=== PATIENT | male | born 1970 ===

== ENCOUNTER 2020-08-30 08:58 | Outpatient (REF) | payer OTHER, SELFPAY | END 2020-08-30 08:59 | disposition home or self-care (01) | LOC: HO.LAB 08:58 | PROVIDERS: Visit Provider Internal Medicine | DX: Z20.828 Contact with and (suspected) exposure to other viral communicable diseases (principal) | CPT/HCPCS: C9803; U0003 ==

== ENCOUNTER 2021-04-07 08:15 | Outpatient (REF) | payer OTHER, SELFPAY ==
--- NOTE | ~2021-04-07 | XR_ITS ---
EXAMINATION: XR CHEST CLINICAL INFORMATION: Persistent asthma. COMPARISON: Most recent chest radiograph dated 12/07/2015. TECHNIQUE: 2 views of the chest were obtained. FINDINGS: The lungs are clear. The cardiomediastinal silhouette is normal in size. There is no pleural effusion or pneumothorax. No acute osseous abnormality. XR/XR chest 2V IMPRESSION: No acute cardiopulmonary findings.
== END 2021-04-07 08:16 | disposition home or self-care (01) ==
LOC: HO.XRAY 08:15
PROVIDERS: PCP Internal Medicine; Visit Provider Internal Medicine
DX: J45.51 Severe persistent asthma with (acute) exacerbation (principal)
CPT/HCPCS: 71046

== ENCOUNTER → 2021-06-10 10:11 | Outpatient (BNVA) | payer OTHER, SELFPAY | PROVIDERS: PCP Internal Medicine; Visit Provider Surgery | DX: S22.49XA Multiple fractures of ribs, unspecified side, initial encounter for closed fracture (principal); J45.909 Unspecified asthma, uncomplicated; E03.9 Hypothyroidism, unspecified; G47.33 Obstructive sleep apnea (adult) (pediatric); Z79.899 Other long term (current) drug therapy | CPT/HCPCS: 99212 ==

== ENCOUNTER → 2021-06-24 08:36 | Outpatient (BNVA) | payer OTHER, SELFPAY | PROVIDERS: PCP Internal Medicine; Visit Provider Surgery | DX: S22.42XA Multiple fractures of ribs, left side, initial encounter for closed fracture (principal); M79.2 Neuralgia and neuritis, unspecified; Z79.899 Other long term (current) drug therapy; Z79.891 Long term (current) use of opiate analgesic | CPT/HCPCS: 99212 ==

== ENCOUNTER → 2021-06-27 08:59 | Outpatient (BNVA) | payer OTHER, SELFPAY | PROVIDERS: PCP Internal Medicine; Visit Provider Anesthesiology ==

== ENCOUNTER 2021-06-27 10:11 | Outpatient (REF) | payer OTHER, SELFPAY ==
[2021-06-27 10:15] LABS: MANUAL DIFF FLAG NO
[2021-06-27 10:20] LABS: Basophils Absolute Auto 0.1 X10*3/uL (0.0-0.2); Basophils Percent Auto 0.8 % (0-2); Eosinophils Absolute Auto 0.4 X10*3/uL (0.0-0.4); Eosinophils Percent Auto 4.6 % (0-4); Hematocrit 43.2 % (42-52); Hemoglobin 14.6 g/dl (14.0-18.0); Imm Gran Abs Auto 0.04 X10*3/uL (0.00-0.03); Imm Gran Pct Auto 0.4 % (0.0-0.4); Lymphocytes Absolute Auto 1.5 X10*3/uL (1.2-4.9); Lymphocytes Percent Auto 16.3 % (20-40); Mean Corpuscular HGB Conc 33.8 g/dl (31.0-36.0); Mean Corpuscular Hemoglobin 30.9 pg (27.0-33.0); Mean Corpuscular Volume 91.5 fL (80-98); Mean Platelet Volume 10.5 fL (9.4-12.4); Monocytes Absolute Auto 0.7 X10*3/uL (0.1-1.2); Monocytes Percent Auto 8.2 % (2-11); Neutrophils Absolute Auto 6.2 X10*3/uL (2.0-8.3); Neutrophils Percent Auto 69.7 % (45-73); Platelet Count 316 X10*3/uL (160-400); Red Blood Count 4.72 X10*6/uL (4.60-5.80); Red Cell Distribution Width 12.9 % (11.0-16.0); White Blood Count 8.9 X10*3/uL (4.8-10.8)
[2021-06-27 10:31] LABS: Alanine Aminotransferase 35 U/L (0-40); Albumin Level 4.6 g/dL (3.5-5.0); Alkaline Phosphatase 62 U/L (39-117); Anion Gap 13 (12-20); Aspartate Amino Transferase 20 U/L (5-37); Bilirubin Total 0.8 mg/dL (0.0-1.0); Blood Urea Nitrogen 17 mg/dL (9-16); Calcium 9.7 mg/dL (8.4-10.2); Carbon Dioxide 29 mmol/L (22-29); Chloride 104 mmol/L (96-108); Cholesterol 200 mg/dL; Estimated Glomerular Filt Rate > 60; Glucose Fasting 102 mg/dL (60-99); HDL Cholesterol 38 mg/dL; LDL Cholesterol Calculated 145 mg/dl; Potassium 4.3 mmol/L (3.3-5.1); Sodium 142 mmol/L (135-145); Total Protein 7.2 g/dL (6.5-8.0); Triglycerides 88 mg/dL
[2021-06-27 10:42] LABS: Appearance Urine CLOUDY; Color Urine YELLOW; Glucose Urine UA NEG (NEG); Leukocyte Esterase Urine NEG (NEG); Nitrite Urine NEG (NEG); PH 7.5 (5.0-8.0); Urine Blood NEG (NEG); Urine Ketones NEG (NEG); Urine Protein NEG (NEG-TRACE)
[2021-06-27 10:51] LABS: PSA,Total (Free>4and<10) 0.96 ng/mL (0.00-4.00); TSH reflex Free T4 1.89 uIU/mL (0.32-4.0)
[2021-06-27 11:03] LABS: Creatinine Urine 138.77 mg/dL; Microalbum/Creatinine Ratio Ur 25.2 ug/mg cr
[2021-06-27 11:12] LABS: Estimated Average Glucose 103 mg/dL; Hemoglobin A1c % 5.2 %
== END 2021-06-27 10:12 | disposition home or self-care (01) ==
LOC: HO.LNP 10:11
PROVIDERS: Visit Provider Internal Medicine
DX: Z00.00 Encounter for general adult medical examination without abnormal findings (principal); S22.49XD Multiple fractures of ribs, unspecified side, subsequent encounter for fracture with routine healing; I10 Essential (primary) hypertension; E03.9 Hypothyroidism, unspecified; R73.09 Other abnormal glucose; E78.00 Pure hypercholesterolemia, unspecified; M79.2 Neuralgia and neuritis, unspecified
CPT/HCPCS: 80053; 80061; 81003; 82043; 83036; 84153; 84443; 85025

== ENCOUNTER 2022-07-31 10:53 | Outpatient (REF) | payer OTHER, SELFPAY ==
[2022-07-31 10:55] LABS: MANUAL DIFF FLAG NO
[2022-07-31 11:06] LABS: Basophils Absolute Auto 0.1 X10*3/uL (0.0-0.2); Basophils Percent Auto 1.1 % (0-2); Eosinophils Absolute Auto 0.2 X10*3/uL (0.0-0.4); Eosinophils Percent Auto 2.9 % (0-4); Hematocrit 46.6 % (42.0-52.0); Hemoglobin 15.3 g/dl (14.0-18.0); Imm Gran Abs Auto 0.04 X10*3/uL (0.00-0.03); Imm Gran Pct Auto 0.6 % (0.0-0.4); Lymphocytes Absolute Auto 1.4 X10*3/uL (1.2-4.9); Lymphocytes Percent Auto 22.2 % (20-40); Mean Corpuscular HGB Conc 32.8 g/dl (31.0-36.0); Mean Corpuscular Hemoglobin 30.4 pg (27.0-33.0); Mean Corpuscular Volume 92.5 fL (80.0-98.0); Mean Platelet Volume 10.7 fL (9.4-12.4); Monocytes Absolute Auto 0.6 X10*3/uL (0.1-1.2); Monocytes Percent Auto 9.9 % (2-11); Neutrophils Absolute Auto 4.1 x10*3/uL (2.0-8.3); Neutrophils Percent Auto 63.3 % (45-73); Platelet Count 245 X10*3/uL (160-400); Red Blood Count 5.04 X10*6/uL (4.60-5.80); Red Cell Distribution Width 13.8 % (11.0-16.0); White Blood Count 6.5 X10*3/uL (4.8-10.8)
[2022-07-31 11:16] LABS: Appearance Urine Clear; Color Urine Yellow; Glucose Urine UA Negative (Negative); Leukocyte Esterase Urine Negative (Negative); Nitrite Urine Negative (Negative); Urine Blood Negative (Negative); Urine Ketones Negative (Negative); Urine Protein Negative (Neg-Trace)
[2022-07-31 11:18] LABS: Estimated Average Glucose 103 mg/dL; Hemoglobin A1c % 5.2 %
[2022-07-31 11:20] LABS: Alanine Aminotransferase 24 U/L (0-40); Albumin Level 4.6 g/dL (3.5-5.0); Alkaline Phosphatase 63 U/L (39-117); Anion Gap 19 (12-20); Aspartate Amino Transferase 18 U/L (5-37); Bilirubin Total 0.9 mg/dL (0.0-1.0); Blood Urea Nitrogen 17 mg/dL (9-16); Calcium 9.9 mg/dL (8.4-10.2); Carbon Dioxide 27 mmol/L (22-29); Chloride 100 mmol/L (96-108); Cholesterol 220 mg/dL; Estimated Glomerular Filt Rate > 60; Glucose Fasting 115 mg/dL (60-99); HDL Cholesterol 65 mg/dL; LDL Cholesterol Calculated 145 mg/dl; Sodium 142 mmol/L (135-145); Total Protein 7.4 g/dL (6.5-8.0); Triglycerides 51 mg/dL
[2022-07-31 11:21] LABS: Bacteria Urine None Seen (None Seen); Hyaline Casts Urine 0-2 /LPF (0-2); RBC Urine 0-2 /HPF (0-2); Squamous Epithelial Cell Urine 0-2 /HPF (0-2); WBC Urine 0-5 /HPF (0-5)
[2022-07-31 11:40] LABS: PSA,Total (Free>4and<10) 0.99 ng/mL (0.00-4.00); TSH reflex Free T4 1.25 uIU/mL (0.32-4.0)
[2022-07-31 12:01] LABS: Creatinine Urine 25.83 mg/dL; Microalbum/Creatinine Ratio Ur 61.9 ug/mg cr
== END 2022-07-31 10:54 | disposition home or self-care (01) ==
LOC: HO.LNP 10:53
PROVIDERS: Visit Provider Internal Medicine
DX: Z00.00 Encounter for general adult medical examination without abnormal findings (principal); I10 Essential (primary) hypertension; E03.9 Hypothyroidism, unspecified; R73.09 Other abnormal glucose; E78.00 Pure hypercholesterolemia, unspecified; Z12.5 Encounter for screening for malignant neoplasm of prostate
CPT/HCPCS: 80053; 80061; 81001; 82043; 83036; 84153; 84443; 85025

== ENCOUNTER 2023-04-24 10:45 | Outpatient (REF) | payer OTHER, SELFPAY ==
--- NOTE | ~2023-04-24 | XR_ITS ---
EXAMINATION: XR RIBS, LEFT CLINICAL INFORMATION: Pain following fracture of ribs in the left side of the chest COMPARISON: 04/07/2021 TECHNIQUE: 3 views of the left ribs were obtained. FINDINGS: There are postsurgical changes on the lateral aspect of ribs 6 and 7 on the left with compression plates and screws in place. No new fractures identified. XR/XR ribs LT min 3V w CXR1V IMPRESSION: No acute abnormalities in the left rib cage healed fracture is only 6 and 7 ribs with
== END 2023-04-24 10:46 | disposition home or self-care (01) ==
LOC: HO.XRAY 10:45
PROVIDERS: PCP Internal Medicine; Visit Provider Internal Medicine
DX: S22.42XG Multiple fractures of ribs, left side, subsequent encounter for fracture with delayed healing (principal)
CPT/HCPCS: 71101

== ENCOUNTER → 2023-06-05 14:35 | Outpatient (BNVA) | payer OTHER, SELFPAY | PROVIDERS: PCP Internal Medicine; Visit Provider Physician Assistant ==

== ENCOUNTER 2023-06-07 09:25 | Outpatient (AMB) | payer OTHER, SELFPAY ==
--- NOTE | 2023-06-07 11:23 | A.OFFVIS_ITS ---
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 Allergies fexofenadine [From [facility]] Allergy (Unknown, Verified 06/07/23 11:23) RASH penicillin V Allergy (Unknown, Verified 06/07/23 11:23) rash Penicillins [PENICILLINS] Allergy (Unknown, Verified 06/07/23 11:23) RASH,THROAT CLOSING [facility] Allergy (Unknown, Uncoded 06/07/23 11:23) rash Medication List - Last Reconciled 06/07/23 by Ruddy May MD albuterol sulfate 90 mcg/actuation (ProAir HFA) 2 puffs inhalation Q6H PRN amlodipine 10 mg PO DAILY 30 days fluticasone furoate-vilanterol 200-25 mcg/dose (Breo Ellipta) 1 inh inhalation DAILY hydrochlorothiazide 25 mg PO DAILY 30 days irbesartan 150 mg PO DAILY 30 days levothyroxine (Synthroid) 150 mcg PO DAILY 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 HPI Details Start time: 11.10am, End time: 12.02pm ?I spent 47 minutes speaking with the patient on the phone plus an additional 5 minutes reviewing and updating records for a total of 52 minutes HPI Comments History of Present Illness Details Previous weight loss efforts: WMP MWL program, exercise Wakes up: 5am, Sleeps: 9pm Breakfast: skips Lunch: 11am-1pm (burger with fries or sandwich) Dinner: 5pm (beef, chicken with potatoes and carrots) Snacks: peanut butter at 3-4pm, occasional brownies after dinner Exercise: none, Fluids: 16oz coffee/d (sugar and cream), tea: none, soda: none, juice: none, ETOH: 2-3 glasses daily or beer PFSH Medical History (Updated 06/07/23 @ 11:28 by Ruddy May MD) COPD (chronic obstructive pulmonary disease) Sleep apnea treated with continuous positive airway pressure (CPAP) Morbid obesity Asthma Obstructive sleep apnea syndrome Obesity Hypothyroidism Hypertension Surgical History History of umbilical hernia repair (~2016) History of colonoscopy (~2015) Assessment & Plan Assessment & Plan (1) Morbid obesity: Code(s): E66.01 - Morbid (severe) obesity due to excess calories Plan: 1.? Plan for lap sleeve gastrectomy. If diaphragmatic or ventral hernias a re present at time of surgery, these will be repaired laparoscopically as well. Risks and complications were discussed in detail including possible conversion to an open procedure, anastomotic leak, bleeding requiring transfusion, small bowel obstruction, , DVT and pulmonary embolism, cardiac, or pulmonary complications, as long lines operator complications such as anastomotic ulcer, insufficient weight loss and vitamin deficiencies. I emphasized the importance of close follow-up, adherence to instructions and good communication. 2. Nutritional counseling. Start with 2 Celebrate REBUILD protein (buy at [employer], or online) shakes (ONE scoop EACH in 8oz low fat unsweetened almond milk each) at 6am-8am and 9am-11am, 2 Celebrate protein bars (buy at [employer], or online) at 12pm-2pm and 3pm-5pm, dinner at 6pm (10 forks of protein and 10 forks of salad/vegetables). If hungry after dinner you may have one more Celebrate protein bar between 7pm-9pm. Meal to include lean meat (beef, fish, pork, turkey, chicken), or cameroonian yogurt, or egg whites, or beans with a salad with olive oil and fruits (berries, pears, apples, kiwi). Avoid salt, breads, potatoes, rice, pasta, desserts. 3. Each shake would be drunk slowly, like coffee in a period of 2 hours. 4. Cut each bar in 4 pieces and eat each piece in 30min ?to make each bar last 2 hours. 5. I emphasized the importance of measuring accurately the food portion and measure it when serving the food in plate 6. The meal portions include 10 full-size forks of meat and 10 full-size forks of salad. You always eat the meat portion but you can replace up to 5 forks for salad/vegetables with rice, potatoes or pasta, or a fruit ?if you like. The less you do it the better weight loss will be. 7. One full-size fork is what it can be scooped on the fork without falling aside and not what can be bit with the fork. Use regular forks like those you find in a typical restaurant. 8.? Please send me weight measurements as soon as possible and then once a week. Always include your diet and exercise plan. 9. Please purchase a stationary bike, elliptical or treadmill at home that can track calories. Let me know if you do so I can give you an exercise plan. 10. Goal is to lose at least 1.5-2lbs per week 11. Goal to lose 10% of your weight before surgery, which is about 25lbs. Ultimate weight goal: 228lbs before surgery 12. Please follow the diet plan exactly without any change. If you don't like something about the plan or you feel hungry you need to communicate with me so I can help you revise the plan. You should not change the plan yourself. (2) Hypertension: Code(s): I10 - Essential (primary) hypertension (3) Hypothyroidism: Code(s): E03.9 - Hypothyroidism, unspecified (4) Sleep apnea treated with continuous positive airway pressure (CPAP): Code(s): G47.30 - Sleep apnea, unspecified (5) Asthma: Code(s): J45.909 - Unspecified asthma, uncomplicated (6) COPD (chronic obstructive pulmonary disease): Code(s): J44.9 - Chronic obstructive pulmonary disease, unspecified (7) Prediabetes: Code(s): R73.03 - Prediabetes Orders: Orders Lipid Panel Today E66.01 - Morbid (severe) obesity due to excess calories, G47.30 - Sleep apnea, unspecified, J44.9 - Chronic obstructive pulmonary disease, unspecified, J45.909 - Unspecified asthma, uncomplicated, R73.03 - Prediabetes Complete Blood Count Auto Diff Today E66.01 - Morbid (severe) obesity due to excess calories, G47.30 - Sleep apnea, unspecified, J44.9 - Chronic obstructive pulmonary disease, unspecified, J45.909 - Unspecified asthma, uncomplicated, R73.03 - Prediabetes Vitamin B12 and Folate Today E66.01 - Morbid (severe) obesity due to excess calories, G47.30 - Sleep apnea, unspecified, J44.9 - Chronic obstructive pulmonary disease, unspecified, J45.909 - Unspecified asthma, uncomplicated, R73.03 - Prediabetes Zinc Today E66.01 - Morbid (severe) obesity due to excess calories, G47.30 - Sleep apnea, unspecified, J44.9 - Chronic obstructive pulmonary disease, unspecified, J45.909 - Unspecified asthma, uncomplicated, R73.03 - Prediabetes Comprehensive Met. Panel Today E66.01 - Morbid (severe) obesity due to excess calories, G47.30 - Sleep apnea, unspecified, J44.9 - Chronic obstructive pulmonary disease, unspecified, J45.909 - Unspecified asthma, uncomplicated, R73.03 - Prediabetes Vitamin A Today E66.01 - Morbid (severe) obesity due to excess calories, G47.30 - Sleep apnea, unspecified, J44.9 - Chronic obstructive pulmonary disease, unspecified, J45.909 - Unspecified asthma, uncomplicated, R73.03 - Prediabetes C Reactive Protein Today E66.01 - Morbid (severe) obesity due to excess calories, G47.30 - Sleep apnea, unspecified, J44.9 - Chronic obstructive pulmonary disease, unspecified, J45.909 - Unspecified asthma, uncomplicated, R73.03 - Prediabetes Ferritin Today E66.01 - Morbid (severe) obesity due to excess calories, G47.30 - Sleep apnea, unspecified, J44.9 - Chronic obstructive pulmonary disease, unspecified, J45.909 - Unspecified asthma, uncomplicated, R73.03 - Prediabetes Hemoglobin A1c Today E66.01 - Morbid (severe) obesity due to excess calories, G47.30 - Sleep apnea, unspecified, J44.9 - Chronic obstructive pulmonary disease, unspecified, J45.909 - Unspecified asthma, uncomplicated, R73.03 - Prediabetes US abdomen comp w elastography Today E66.01 - Morbid (severe) obesity due to excess calories, G47.30 - Sleep apnea, unspecified, J44.9 - Chronic obstructive pulmonary disease, unspecified, J45.909 - Unspecified asthma, uncomplicated, R73.03 - Prediabetes ECG 12 lead EKG Today E66.01 - Morbid (severe) obesity due to excess calories, G47.30 - Sleep apnea, unspecified, J44.9 - Chronic obstructive pulmonary disease, unspecified, J45.909 - Unspecified asthma, uncomplicated, R73.03 - Prediabetes FL upper GI w air Today E66.01 - Morbid (severe) obesity due to excess calories, G47.30 - Sleep apnea, unspecified, J44.9 - Chronic obstructive pulmonary disease, unspecified, J45.909 - Unspecified asthma, uncomplicated, R73.03 - Prediabetes Insulin Today E66.01 - Morbid (severe) obesity due to excess calories, G47.30 - Sleep apnea, unspecified, J44.9 - Chronic obstructive pulmonary disease, unspecified, J45.909 - Unspecified asthma, uncomplicated, R73.03 - Prediabetes IRON PROFILE Today E66.01 - Morbid (severe) obesity due to excess calories, G47.30 - Sleep apnea, unspecified, J44.9 - Chronic obstructive pulmonary disease, unspecified, J45.909 - Unspecified asthma, uncomplicated, R73.03 - Prediabetes Vitamin B1 Today E66.01 - Morbid (severe) obesity due to excess calories, G47.30 - Sleep apnea, unspecified, J44.9 - Chronic obstructive pulmonary disease, unspecified, J45.909 - Unspecified asthma, uncomplicated, R73.03 - Prediabetes PTHI Today E66.01 - Morbid (severe) obesity due to excess calories, G47.30 - Sleep apnea, unspecified, J44.9 - Chronic obstructive pulmonary disease, unspecified, J45.909 - Unspecified asthma, uncomplicated, R73.03 - Prediabetes TSH reflex Free T4 Today E66.01 - Morbid (severe) obesity due to excess calories, G47.30 - Sleep apnea, unspecified, J44.9 - Chronic obstructive pulmonary disease, unspecified, J45.909 - Unspecified asthma, uncomplicated, R73.03 - Prediabetes H Pylori Breath Test Today E66.01 - Morbid (severe) obesity due to excess calories, G47.30 - Sleep apnea, unspecified, J44.9 - Chronic obstructive pulmonary disease, unspecified, J45.909 - Unspecified asthma, uncomplicated, R73.03 - Prediabetes Vitamin D 25-OH Total Today E66.01 - Morbid (severe) obesity due to excess calories, G47.30 - Sleep apnea, unspecified, J44.9 - Chronic obstructive pulmonary disease, unspecified, J45.909 - Unspecified asthma, uncomplicated, R73.03 - Prediabetes XR chest 2V Today E66.01 - Morbid (severe) obesity due to excess calories, G47.30 - Sleep apnea, unspecified, J44.9 - Chronic obstructive pulmonary disease, unspecified, J45.909 - Unspecified asthma, uncomplicated, R73.03 - Prediabetes Referrals Behavioral Health Referral E66.01 - Morbid (severe) obesity due to excess calories, G47.30 - Sleep apnea, unspecified, J44.9 - Chronic obstructive pulmonary disease, unspecified, J45.909 - Unspecified asthma, uncomplicated, R73.03 - Prediabetes Nutrition/Dietitian Referral E66.01 - Morbid (severe) obesity due to excess calories, G47.30 - Sleep apnea, unspecified, J44.9 - Chronic obstructive pulmonary disease, unspecified, J45.909 - Unspecified asthma, uncomplicated, R73.03 - Prediabetes Telehealth Telehealth Location of provider rendering services: practice address Location of patient: address on file Patient Identification confirmed using: Name, : Yes Telehealth method: voice only Patient verbally consented to treatment: Yes Patient verbally consented to billing insurance company: Yes Patient informed of any privacy concerns related to visit: Yes Minutes spent on Phone/Video with Pt.: 52 Coding Level of Care Code Tele New Pt Level 4 (63929) Diagnoses Morbid obesity E66.01 Hypertension I10 Hypothyroidism E03.9 Sleep apnea treated with continuous positive airway pressure (CPAP) G47.30 Asthma J45.909 COPD (chronic obstructive pulmonary disease) J44.9 Prediabetes R73.03 Time Spent (min) 52
[2023-06-07 11:32] VITALS: BMI 42.1
[2023-06-17 13:42] LABS: H Pylori Breath Test Negative (Negative)
== END 2023-06-07 12:03 | disposition home or self-care (01) ==
LOC: HO.HBS 09:25
PROVIDERS: PCP Internal Medicine; Visit Provider Surgery
DX: E66.01 Morbid (severe) obesity due to excess calories (principal); Z68.41 Body mass index [BMI] 40.0-44.9, adult; E03.9 Hypothyroidism, unspecified; G47.30 Sleep apnea, unspecified; J44.9 Chronic obstructive pulmonary disease, unspecified; R73.03 Prediabetes
CPT/HCPCS: 99443

== ENCOUNTER → 2023-06-07 09:25 | Outpatient (BNVA) | payer OTHER, SELFPAY | PROVIDERS: PCP Internal Medicine; Visit Provider Surgery | DX: E66.01 Morbid (severe) obesity due to excess calories (principal); Z68.41 Body mass index [BMI] 40.0-44.9, adult; I10 Essential (primary) hypertension; E03.9 Hypothyroidism, unspecified; G47.30 Sleep apnea, unspecified; J44.9 Chronic obstructive pulmonary disease, unspecified; J45.909 Unspecified asthma, uncomplicated; R73.03 Prediabetes; Z11.0 Encounter for screening for intestinal infectious diseases | CPT/HCPCS: 83013 ==

== ENCOUNTER 2023-06-11 07:13 | Outpatient (REF) | payer OTHER, SELFPAY ==
--- NOTE | ~2023-06-11 | XR_ITS ---
EXAMINATION: XR CHEST CLINICAL INFORMATION: Asthma, uncomplicated COMPARISON: 04/24/2023, 04/07/2021 TECHNIQUE: 2 views of the chest. FINDINGS: Redemonstration of postsurgical changes along the lateral aspects of ribs 6 and 7 with compression plates and screws. There is no gross pneumothorax. Heart size is normal. No pleural effusion. No new focal consolidation to suggest pneumonia. Mild degenerative changes in the thoracic spine. XR/XR chest 2V IMPRESSION: No evidence of pneumonia.
--- NOTE | 2023-06-11 07:23 | ECG_ITS ---
Test Reason : pre op Blood Pressure : / mmHG Vent. Rate : 065 BPM Atrial Rate : 065 BPM P-R Int : 162 ms QRS Dur : 090 ms QT Int : 400 ms P-R-T Axes : 048 063 055 degrees QTc Int : 416 ms Normal sinus rhythm with sinus arrhythmia Septal infarct , age undetermined Abnormal ECG No previous ECGs available Referred By: Ruddy May Electronically Signed By:RAMÓN MUNSON
[2023-06-11 07:30] LABS: MANUAL DIFF FLAG NO
[2023-06-11 08:10] LABS: Basophils Absolute Auto 0.1 X10*3/uL (0.0-0.2); Basophils Percent Auto 1.1 % (0-2); Eosinophils Absolute Auto 0.4 X10*3/uL (0.0-0.4); Eosinophils Percent Auto 5.5 % (0-4); Hematocrit 46.6 % (42.0-52.0); Hemoglobin 15.9 g/dl (14.0-18.0); Imm Gran Abs Auto 0.05 X10*3/uL (0.00-0.03); Imm Gran Pct Auto 0.7 % (0.0-0.4); Lymphocytes Absolute Auto 1.6 X10*3/uL (1.2-4.9); Lymphocytes Percent Auto 21.7 % (20-40); Mean Corpuscular HGB Conc 34.1 g/dl (31.0-36.0); Mean Corpuscular Hemoglobin 31.1 pg (27.0-33.0); Mean Corpuscular Volume 91.2 fL (80.0-98.0); Mean Platelet Volume 10.8 fL (9.4-12.4); Monocytes Absolute Auto 0.7 X10*3/uL (0.1-1.2); Monocytes Percent Auto 9.7 % (2-11); Neutrophils Absolute Auto 4.6 x10*3/uL (2.0-8.3); Neutrophils Percent Auto 61.3 % (45-73); Platelet Count 262 X10*3/uL (160-400); Red Blood Count 5.11 X10*6/uL (4.60-5.80); White Blood Count 7.5 X10*3/uL (4.8-10.8)
[2023-06-11 08:33] LABS: Estimated Average Glucose 100 mg/dL; Hemoglobin A1c % 5.1 % (<6.0)
[2023-06-11 08:52] LABS: Alanine Aminotransferase 33 U/L (0-40); Albumin Level 4.5 g/dL (3.5-5.0); Alkaline Phosphatase 66 U/L (39-117); Anion Gap 13 (12-20); Aspartate Amino Transferase 21 U/L (5-37); Bilirubin Total 1.2 mg/dL (0.0-1.0); Blood Urea Nitrogen 17 mg/dL (9-16); C Reactive Protein 0.45 mg/dL (< or = 0.50); Carbon Dioxide 27 mmol/L (22-29); Chloride 102 mmol/L (96-108); Cholesterol 224 mg/dL (<200); Estimated Glomerular Filt Rate > 60; Glucose Random 112 mg/dL (60-115); HDL Cholesterol 50 mg/dL (>40); Iron 147 mcg/dL (45-160); LDL Cholesterol Calculated 154 mg/dL (<100); Percent Iron Saturation 45 % (15-50); Potassium 3.5 mmol/L (3.3-5.1); Sodium 138 mmol/L (135-145); Total Iron Binding Capacity 325 mcg/dL (228-428); Total Protein 7.4 g/dL (6.5-8.0); Triglycerides 102 mg/dL (<150); Unsaturated Iron Binding 178 ug/dL
[2023-06-11 09:15] LABS: Vitamin B12 476 pg/mL (200-900)
[2023-06-11 09:18] LABS: Ferritin 258 ng/mL (20-250); Insulin 11 uU/mL (2-29); TSH reflex Free T4 1.83 uIU/mL (0.32-4.0); Vitamin D 25-OH Total 42.2 ng/mL (>30)
[2023-06-12 16:14] LABS: Calcium (PTHI) 9.8 mg/dL (8.6-10.3); PTHI 29 pg/mL (16-77)
[2023-06-15 01:29] LABS: Zinc 76 mcg/dL (60-130)
[2023-06-15 18:18] LABS: Vitamin A 62 mcg/dL (38-98)
[2023-06-17 11:54] LABS: Vitamin B1 7 nmol/L (8-30)
== END 2023-06-11 07:14 | disposition home or self-care (01) ==
LOC: HO.LAB 07:13
PROVIDERS: PCP Internal Medicine; Visit Provider Surgery
DX: J45.909 Unspecified asthma, uncomplicated (principal); E66.01 Morbid (severe) obesity due to excess calories; G47.30 Sleep apnea, unspecified; J44.9 Chronic obstructive pulmonary disease, unspecified; R73.03 Prediabetes
CPT/HCPCS: 36415; 71046; 80053; 80061; 82306; 82607; 82728; 82746; 83036; 83525; 83540; 83970; 84425; 84443; 84590; 84630; 85025; 86140; 93005

== ENCOUNTER → 2023-06-15 07:42 | Outpatient (BNVA) | payer OTHER, SELFPAY | PROVIDERS: PCP Internal Medicine; Visit Provider Physician Assistant Surgical ==

== ENCOUNTER 2023-06-18 10:20 | Outpatient (AMB) | payer OTHER, SELFPAY ==
--- NOTE | 2023-06-18 10:20 | A.OFFWM_ITS ---
Intake Intake Visit Reasons: VIDEO BH Intake Allergies fexofenadine [From ENDY] Allergy (Unknown, Verified 06/07/23 11:23) RASH penicillin V Allergy (Unknown, Verified 06/07/23 11:23) rash Penicillins [PENICILLINS] Allergy (Unknown, Verified 06/07/23 11:23) RASH,THROAT CLOSING Endy Allergy (Unknown, Uncoded 06/07/23 11:23) rash [facility] Medical History (Updated 06/18/23 @ 10:51 by Pooja Patterson) COPD (chronic obstructive pulmonary disease) Sleep apnea treated with continuous positive airway pressure (CPAP) Morbid obesity Asthma Obstructive sleep apnea syndrome Obesity Hypothyroidism Hypertension Surgical History History of umbilical hernia repair (~2015) History of colonoscopy (~2014) Behavioral Health Assessment Weight Management Therapy Therapy Notes Details Patient is looking to have weight loss surgery to help improve his health and quality of life. He reported some history of depression. He was in therapy many years ago due to OCD and then his daughter was diagnosed with ADHD due to his anxiety per his report. He was on medication for two years while in therapy. No history of inpatient psychiatric admission, or problems with drugs or alcohol. He reported about 1-4 drinks per night almost everynight his last beer was 8 days ago. No history of self harming behaviors or suicide attempts. Presenting Concerns Referral Source provider Reason for referral weight loss surgery evaluation Precipitating Event obesity Living Situation Current Living Situation Own At risk of losing current housing? No Satisfied with current living situation? Yes Comments Pt lives with his , and their 14 year old daughter. They have 7 children combined. Food/Weight/Diet Expectations of change weight loss and maintenance History/Relationship with food He stated that portion sizes are one of his biggest problems and also eating carbs, beer, pizza, rice, potatoes. Also would drink coffee with cream and sugar and then could skip meals all day and then binge eat dinner. History/Relationship with weight Pt stated that he has been he has been overweight since about 14 years old. At age 19 he was 220lbs. History/Relationship with dieting WMP in 2019, at age 22 he went down to 165lbs from boxing and working out. Binge Eating Do you frequently eat large amounts of food in short periods of time, not feeling physically hungry? No Do you feel out of control when you eat a large amount of food in a short period of time? No Do you eat large amounts of food rapidly and typically alone? Yes Night Eating Do you wake up at least once during the night to eat? No If you wake up in the night, do you find that it is necessary to eat something in order to fall back asleep? No Do you have little or no appetite in the morning and feel very hungry in the evening, often overeating between dinner and when you go to bed? Yes Social History Family history and relationship at 19 and then at 20. 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 none reported Education Highest grade completed high school Preferred learning style Auditory, Verbal, Written, Learn by doing and Visual Currently enrolled in educational program? No Interested in further educational program? 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 No Financial Situation Describe current financial situation Comfortable Financial assistance? None Service Service? No Mental Health and Addiction Treatment Current/Past substance abuse? Yes Comments see above paragraph. Current/Past addictive behavior concerns? No Medical and Physical Health Summary Physical exam in the last year? No Pain Screening Current pain? No Pain in the last few months? No Medications Is the patient compliant with medications? Yes Does the patient have Francois Guardian in place? Not applicable Does the patient use complimentary health approaches? No Trauma/Abuse History History of trauma? No Questionnaires PHQ-9 Over the last 2 weeks, how often have you been bothered by any of the following problems? 1. Little interest or pleasure in doing things: not at all 2. Feeling down, depressed, or hopeless: several days 3. Trouble falling or staying asleep, or sleeping too much: not at all 4. Feeling tired or having little energy: several days 5. Poor appetite or overeating: several days 6. Feeling bad about yourself - or that you are a failure or have let yourself or your family down: more than half the days 7. Trouble concentrating on things, such as reading the newspaper or watching television: nearly every day 8. Moving or speaking so slowly that other people could have noticed. Or the opposite - being so fidgety or restless that you have been moving around a lot more than usual: not at all 9. Thoughts that you would be better off or of hurting yourself in some way: not at all Total score: 8 Source: Developed by Drs. Jean Pierre Meier, Ruth Velasquez, Titus Lino and colleagues, with an educational bella from [employer]. Binge Eating Scale Group 1 A. I don't feel self-conscious about my wt. or body size when I'm with others. B. I feel concerned about how I look to others, but it normally does not make me fell disappointed with myself C. I do get self-conscious about my appearance and wt. which makes me feel disappointed in myself. D. I feel very self-conscious about my wt. and frequently I feel intense shame and disgust for myself. I try to avoid social contacts because of my self- consciousness. Response Group 1: D Group 2 A. I don't have any difficulty eating slowly in the proper manner. B. Although I seem to gobble down foods, I don't end up feeling stuffed because of eating to much. C. At times, I tend to eat quickly and then, I feel uncomfortably full afterwards. D. I have the habit of bolting down my food, without really chewing it. When this happens I usually feel uncomfortably stuffed because I've eaten to much. Response Group 2: B Group 3 A. I feel capable to control my eating urges when I want to. B. I feel like I have failed to control my eating more than the average person. C. I feel utterly helpless when it comes to feeling in control of my eating urges. D. Because I feel so helpless about controlling my eating I have become very desperate about trying to get control. Response Group 3: B Group 4 A. I don't have the habit of eating when I'm bored. B. I sometimes eat when I'm bored, but often I'm able to get busy and get my min d off food. C. I have a regular habit of eating when I'm bored, but occasionally, I can use some other activity to get my mind off eating. D. I have a strong habit of eating when I'm bored. Nothing seems to help me breath the habit. Response Group 4: A Group 5 A. I'm usually physically hungry when I eat something. B. Occasionally, I eat something on impulse even though I really am not hungry. C. I have the regular habit of eating foods, that I might not really enjoy, to satisfy a hungry feeling even though physically, I don't need the food. D. Although I'm not physically hungry, I get a hungry feeling in my mouth that only seems to be satisfied when I eat a food, like sandwich, that fills my mouth. Sometimes, when I eat the food to satisfy my mouth hunger, I then spit the food out so I won't gain weight. Response Group 5: A Group 6 A. I don't feel any guilt or self-hate after I overeat. B. After I overeat, occasionally I feel guilt or self-hate. C. Almost all the time I experience strong guilt or self-hate after I overeat. Response Group 6: C Group 7 A. I don't lose total control of my eating when dieting even after periods when I overeat. B. Sometimes when I eat a forbidden food on a diet, I feel like I blew it and eat even more. C. Frequently, I have the habit of saying to myself, I've blown it now, why not go all the way, when I overeat on a diet. When that happens I eat more. D. I have a regular habit of starting a strict diets for myself but I break the diets by going on an eating binge. My life seems to be either a feast or famine. Response Group 7: A Group 8 A. I rarely eat so much food that I feel uncomfortably stuffed afterwards. B. Usually about once a month, I each such a quantity of food, I end up feeling very stuffed. C. I have regular periods during the month when I eat large amounts of food, either at mealtime or at snacks. D. I eat so much food that I regularly feel quite uncomfortable after eating and sometimes a bit nauseous. Response Group 8: B Group 9 A. My level of calorie intake does not go up very high or go down very low on a regular basis. B. Sometimes after I overeat, I will try to reduce my caloric intake to almost nothing to compensate for the excess calories I've eaten. C. I have a regular habit of overeating during the night. It seems that my routine is not to be hungry in the morning but overeat in the evening. D. In my adult years, I have had week-long periods where I practically starve myself. This follows periods when I overeat. It seems I live a life of either feast or famine. Response Group 9: A Group 10 A. I usually am able to stop eating when I want to. I know when enough is enough. B. Every so often, I experience a compulsion to eat which I can't seem to control. C. Frequently, I experience strong urges to eat which I seem unable to control, but at other times I can control my eating urges. D. I feel incapable of controlling urges to eat. I have a fear of not being able to stop eating voluntarily. Response Group 10: B Group 11 A. I don't have any problem stopping eating when I feel full. B. I usually can stop eating when I feel full but occasionally overeat leaving me feeling uncomfortably stuffed. C. I have a problem stopping eating once I start and usually I feel uncomfortably stuffed after I eat a meal. D. Because I have a problem not being able to stop eating when I want, I sometimes have to induce vomiting to relieve my stuffed feeling. Response Group 11: B Group 12 A. I seem to eat just as much when I'm with others, Family social gatherings as when I'm by myself. B. Sometimes, when I'm with other persons, I don't eat as much as I want to eat because I'm self-conscious about my eating. C. Frequently, I eat only a small amount of food when others are present, because I'm very embarrassed about my eating. D. I feel so ashamed about overeating that I pick times to overeat when I know no one will see me. I feel like a closet eater. Response Group 12: A Group 13 A. I eat three meals a day with only an occasional between meal snack. B. I eat 3 meals a day, but I also normally snack between meals. C. When I am snacking heavily, I get in the habit of skipping regular meals. D. There are regular periods when I seem to be continually eating, with no planned meals. Response Group 13: A Group 14 A. I don't think much about trying to control unwanted eating urges. B. At least some of the time, I feel my thoughts are pre-occupied with trying to control my eating urges. C. I feel that frequently I spend much time thinking about how much I ate or about trying not to eat anymore. D. It seems to me that most of my waking hours are pre-occupied by thoughts about eating or not eating. I feel like I'm constantly struggling not to eat. Response Group 14: A Group 15 A. I don't think about food a great deal. B. I have strong craving for food but they last only for brief periods of time. C. I have days when I can't seem to think about anything else but food. D. Most of my days seem to be pre-occupied with thoughts about food. I feel like I live to eat. Response Group 15: A Group 16 A. I usually know whether or not I'm physically hungry. I take the right portion of food to satisfy me. B. Occasionally, I feel uncertain about knowing whether or not I'm physically hungry. A these times it's hard to know how much food I should take to satisfy me. C. Even though I might know how many calories I should eat, I don't have any idea what is a normal amount of food for me. Response Group 16: C Binge Eating Score: 12 Score less than 17 Minimal Risk Score between 18-26 Moderate Risk Score between 27-46 High Risk Assessment & Plan Assessment & Plan (1) Adjustment disorder, unspecified: Code(s): F43.20 - Adjustment disorder, unspecified (2) Obesity: Comment: (morbid obesity) Code(s): E66.9 - Obesity, unspecified Plan Patient is doing well, he is cleared for surgery when ready. He was encouraged to follow up as needed. Telehealth Telehealth Location of provider rendering services: other Location of patient: other Patient Identification confirmed using: Name, : Yes Telehealth method: video Patient verbally consented to treatment: Yes Patient verbally consented to billing insurance company: Yes Patient informed of any privacy concerns related to visit: Yes Minutes spent on Phone/Video with Pt.: 45 Coding Level of Care Code Tele Psy Diag Eval (71527) Diagnoses Adjustment disorder, unspecified F43.20 Obesity E66.9 Time Spent (min) 45
== END 2023-06-18 10:54 | disposition home or self-care (01) ==
LOC: HO.HBST 10:20
PROVIDERS: PCP Internal Medicine; Visit Provider Counselor Mental Health
DX: F43.20 Adjustment disorder, unspecified (principal); E66.9 Obesity, unspecified
CPT/HCPCS: 90791

== ENCOUNTER → 2023-06-18 10:20 | Outpatient (BNVA) | payer OTHER, SELFPAY | PROVIDERS: PCP Internal Medicine; Visit Provider Counselor Mental Health ==

== ENCOUNTER 2023-06-28 09:50 | Outpatient (REF) | payer OTHER, SELFPAY | END 2023-06-28 09:51 | disposition home or self-care (01) | LOC: HO.US 09:50 | PROVIDERS: PCP Internal Medicine; Visit Provider Surgery | DX: J45.909 Unspecified asthma, uncomplicated (principal); E66.01 Morbid (severe) obesity due to excess calories; G47.30 Sleep apnea, unspecified; J44.9 Chronic obstructive pulmonary disease, unspecified; R73.03 Prediabetes | CPT/HCPCS: 76705; 76981 ==

== ENCOUNTER 2023-07-03 08:40 | Outpatient (REF) | payer OTHER, SELFPAY | END 2023-07-03 08:41 | disposition home or self-care (01) | LOC: HO.XRAY 08:40 | PROVIDERS: PCP Internal Medicine; Visit Provider Surgery | DX: E66.01 Morbid (severe) obesity due to excess calories (principal); R73.03 Prediabetes; J44.9 Chronic obstructive pulmonary disease, unspecified; G47.30 Sleep apnea, unspecified | CPT/HCPCS: 74246 ==

== ENCOUNTER → 2023-07-03 08:41 | Outpatient (BNV) | payer OTHER, SELFPAY | PROVIDERS: PCP Internal Medicine; Visit Provider Radiology Diagnostic Radiology | DX: Z01.818 Encounter for other preprocedural examination (principal); E66.01 Morbid (severe) obesity due to excess calories | CPT/HCPCS: 74246 ==

== ENCOUNTER 2023-07-04 07:39 | Outpatient (AMB) | payer OTHER, SELFPAY ==
--- NOTE | 2023-07-04 09:31 | MHC.OFFVISWM ---
Intake VS Expanded 07/04/23 09:35 Height 5 ft 5 in Weight 240 lb 8 oz BMI 40.0 Body Fat % 43.5 Body Fat Mass 104.7 Fat Free Mass 136 Visceral Fat Rating 22 Body Water % 40.8 Body Water Mass 98.2 Basal Metabolic Rate/Score 1,702 Intake Visit Reasons: TV Follow Up SWL - Allergies fexofenadine [From ENDY] Allergy (Unknown, Verified 06/07/23 11:23) RASH penicillin V Allergy (Unknown, Verified 06/07/23 11:23) rash Penicillins [PENICILLINS] Allergy (Unknown, Verified 06/07/23 11:23) RASH,THROAT CLOSING Endy Allergy (Unknown, Uncoded 06/07/23 11:23) rash HPI TV Follow Up SWL - HPI Details Start time: 9.25am, End time: 9.45am ?I spent 15 minutes speaking with the patient on the phone plus an additional 5 minutes reviewing and updating records for a total of 20 minutes HPI Comments History of Present Illness Details Overall weight loss: 12.6lbs or 4.97% TBWL Is doing 2 Celebrate Rebuild protein shakes (1 scoop in 8oz almond milk), 2 Zone Perfect protein bars and one meal (10 forks of protein and 10 forks of salad or vegetables) Exercise: is doing home treadmill for 300-350cal x 7days per week [facility] Medical History (Updated 06/18/23 @ 10:51 by Pooja Patterson) COPD (chronic obstructive pulmonary disease) Sleep apnea treated with continuous positive airway pressure (CPAP) Morbid obesity Asthma Obstructive sleep apnea syndrome Obesity Hypothyroidism Hypertension Surgical History History of umbilical hernia repair (~2015) History of colonoscopy (~2014) Assessment & Plan Assessment & Plan (1) Morbid obesity: Code(s): E66.01 - Morbid (severe) obesity due to excess calories Plan: 1. Continue present nutritional plan of 2 Celebrate Rebuild protein shakes (1 scoop in 8oz almond milk), 2 Zone Perfect protein bars and one meal (10 forks of protein and 10 forks of salad or vegetables) 2. Exercise: continue home treadmill for 300-350cal x 7days per week. Goal is 2000 calories burn on treadmill weekly 3. Continue to send weight measurements weekly on Sundays Telehealth Telehealth Location of provider rendering services: practice address Location of patient: address on file Patient Identification confirmed using: Name, : Yes Telehealth method: voice only Patient verbally consented to treatment: Yes Patient verbally consented to billing insurance company: Yes Patient informed of any privacy concerns related to visit: Yes Minutes spent on Phone/Video with Pt.: 20 Coding Level of Care Code Tele Est Pt Level 3 (33602) Diagnoses Morbid obesity E66.01
[2023-07-04 09:35] VITALS: BMI 40.0
== END 2023-07-04 09:48 | disposition home or self-care (01) ==
PROVIDERS: PCP Internal Medicine; Visit Provider Surgery
DX: E66.01 Morbid (severe) obesity due to excess calories (principal); Z68.41 Body mass index [BMI] 40.0-44.9, adult
CPT/HCPCS: 99213

== ENCOUNTER → 2023-07-04 07:39 | Outpatient (BNVA) | payer OTHER, SELFPAY | PROVIDERS: PCP Internal Medicine; Visit Provider Surgery ==

== ENCOUNTER 2023-07-10 09:43 | Outpatient (AMB) | payer OTHER, SELFPAY ==
--- NOTE | 2023-07-10 09:36 | MHC.AMNUTRGE ---
Intake Intake Visit Reasons: VIDEO Initial Nutrition SWL Allergies fexofenadine [From ENDY] Allergy (Unknown, Verified 06/07/23 11:23) RASH penicillin V Allergy (Unknown, Verified 06/07/23 11:23) rash Penicillins [PENICILLINS] Allergy (Unknown, Verified 06/07/23 11:23) RASH,THROAT CLOSING Endy Allergy (Unknown, Uncoded 06/07/23 11:23) rash HPI Nutrition Presentation Details [employer] weight 258# current weight 233# Reason for consult elevated BMI Diet Assmnt Details Celebrate mendoza thomaskes - 1 scoop 8oz almond milk x 2 = 20g protein Zone perfect bars x 2 dinner 10 bites of protein and veg Pt shares that he is worried about losing muscle mass on his current plan Goes to [place] for the whole month of August Online classes completed, scored well Dietary counseling reduction Meal frequency regular: lunch (large ), dinner (6pm large portions) and snacks (2 big spoons peanut butter mid afternoon; ) and never: breakfast (coffee) Lifestyle Eating out 4 or more times/week Food frequency Fruit: daily, Vegetables: several times weekly (but likes vegetables ), Meats/poultry/fish (protein): daily, Coffee: daily and Alcohol: daily Diagnosis Nutrition problem #1 overweight/obesity As related to (etiology) #1 excess energy intake and physical inactivity As evidenced by (sign/symptom) #1 high BMI Monitoring/Goals Nutrition problem monitoring total energy intake, level of knowledge/skill, total PRO intake, total CHO intake and weight Outcome progress progressing Learning/Education Readiness to learn excellent Stages of change action Educational materials provided Yes Most Recent Diabetes Results: Cholesterol 224 mg/dL (<200) H 06/11/23 HDL Cholesterol 50 mg/dL (>40) 06/11/23 Triglycerides 102 mg/dL (<150) 06/11/23 Creatinine 0.82 mg/dL (0.5-1.4) 06/11/23 Blood Urea Nitrogen 17 mg/dL (9-16) H 06/11/23 Sodium 138 mmol/L (135-145) 06/11/23 Potassium 3.5 mmol/L (3.3-5.1) 06/11/23 Chloride 102 mmol/L (96-108) 06/11/23 Carbon Dioxide 27 mmol/L (22-29) 06/11/23 Calcium 10.0 mg/dL (8.4-10.2) 06/11/23 AST 21 U/L (5-37) 06/11/23 ALT 33 U/L (0-40) 06/11/23 Total Protein 7.4 g/dL (6.5-8.0) 06/11/23 Albumin 4.5 g/dL (3.5-5.0) 06/11/23 [facility] Medical History (Updated 06/18/23 @ 10:51 by Pooja Patterson) COPD (chronic obstructive pulmonary disease) Sleep apnea treated with continuous positive airway pressure (CPAP) Morbid obesity Asthma Obstructive sleep apnea syndrome Obesity Hypothyroidism Hypertension Surgical History History of umbilical hernia repair (~2015) History of colonoscopy (~2014) Assessment & Plan Assessment & Plan (1) Obesity (BMI 30-39.9): Code(s): E66.9 - Obesity, unspecified Patient Instructions: Patient is cleared from a nutrition standpoint for bariatric surgery. Educational requirements have been completed. Reviewed vitamin supplementation and commitment to protein shake for several months post surgery. Encouraged communication with office as needed Telehealth Telehealth Location of provider rendering services: practice address Location of patient: address on file Patient Identification confirmed using: Name, : Yes Telehealth method: video Patient verbally consented to treatment: Yes Patient verbally consented to billing insurance company: Yes Patient informed of any privacy concerns related to visit: Yes Minutes spent on Phone/Video with Pt.: 30 Coding Level of Care Code Nutr Indiv Intake (55441) Diagnoses Obesity (BMI 30-39.9) E66.9 Time Spent (min) 30
--- OUTSIDE RECORDS SUMMARY | 2023-07-10 09:45 | XMS_ITS | Patient Health Record ---
Author Name Unknown Organization [facility] Address [address] [place] [address] Care Team Providers Care Messaging Architect Name Role Phone Ruddy VILLARREAL, Aston Primary Care Provider Alhaji Evangelista Jr Unavailable [phone] ALLERGIES Allergen (clinical drug ingredient) Drug/Non Drug Allergy documented on EMR Reaction Allergy Type Onset Date Status Penicillin Unknown Drug Allergy Active Joceline Unknown Drug Allergy Active REASON FOR REFERRAL No Information MEDICATIONS Medication SIG (Take, Route, Frequency, Duration) Notes Start Date End Date Status hydroCHLOROthiazide 25 MG 1 tablet Orally Once a day Active amLODIPine Besylate 10 MG 1 tablet Orally Once a day Active Flovent HFA Active Suprep Bowel Prep 1 as directed Orally 1 for 1 dose 10/28/2014 Active SOCIAL HISTORY Sex Assigned At : Social History Observation Description Sex Assigned At Unknown PROBLEMS Problem Type ICD Code Onset Dates Problem Status W/U Status Risk SNOMED Code Notes Problem Abnormal findings in stool (792.1) Active confirmed 737787075 Problem Rectal bleeding (569.3) Active confirmed [id number] PLAN OF TREATMENT Future Test Test Name Order Date COLONOSCOPY 10/28/2014 Insurance Providers Payer Name Payer Address Payer Phone Subscriber Number Group Number Insured Name Patient Relationship to Insured Coverage Start Date Coverage End Date [facility] [address] [place] [phone] [id number] ANNA STEIN Self - patient is the insured MEDICAL (GENERAL) HISTORY Medical History History ICD Code Denies OR,DM,CVA,renal disease asthma hypertension Surgical History Surgery Date(Month/Year) lower back surgery eye surgery
--- OUTSIDE RECORDS SUMMARY | 2023-07-10 09:45 | XMS_ITS | Patient Health Record ---
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 significant laryngeal penetration or aspiration. No cricopharyngeal achalasia. 2. Tiny type I hiatus hernia seen at the GE junction. No mucosal abnormalities. Mild presbyesophagus. 3. Mild gastroesophageal reflux noted during the course of the examination to the level of the kimberly. 4. The stomach, duodenal bulb, duodenal sweep, duodenum, and proximal small bowel appear normal. 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: REASON FOR REFERRAL Reason Bariatric surgery Diagnosis 1 Obesity due to exces s calories, unspecified obesity severity (E66.09) Diagnosis 2 Body mass index (BMI ) of 40.0-44.9 in adult (Z68.41) Referral Organization Aston Fox MD Referring Provider First Name Aston Referring Provider Last Name Ruddy Referring Provider Speciality Internal M edicine Referred Provider Ruddy May Referred Provider Specialty Bariatric Fox rgery General Notes Catia Sewell 11:14:21 AM EDT > info faxed phone [phone], Catia Sewell 2023 03:31:57 PM EDT > spoke with office he needs to watch the video first then they will be able to set him up with an appt. Their office will call to get him set up with the video , Catia Sewell 05/14/2023 11:42:26 AM EDT > called their office patient still has not done te video yet , Catia Sewell 06/01/2023 11:02:14 AM EDT > spoke with patient today he watch the video and he will be calling to book his own appt, Catia Sewell 06/04/2023 11:48:35 AM EDT > patient is aware of appt Referral Priority Routine Referral Appointment Date 06/05/2023 MEDICATIONS Medication SIG (Take, Route, Frequency, Duration) Notes Start Date End Date Status Fluticasone Propionate 50 MCG/ACT 1 spray in each nostril Nasally Once a day for 30 day(s) 06/11/2023 Active Potassium Chloride ER 10 MEQ TAKE 2 TABLETS BY MOUTH WITH FOOD TWICE DAILY for 90 Active Irbesartan-hydroCHLOROthia zide 150-12.5 MG TAKE 1 TABLET BY MOUTH EVERY DAY FOR 30 DAYS Orally Once a day for 90 days Active Breo Ellipta 200-25 MCG/INH INHALE 1 PUFF BY MOUTH EVERY DAY Inhalation Once a day for 90 days Active Levothyroxine Sodium 150 MCG TAKE 1 TABLET BY MOUTH EVERY DAY IN THE MORNING for 90 Active Benzonatate 200 MG [address] ee times a day for 10 days 05/01/2023 Active Dulera 200-5 MCG/ACT 2 puffs Inhalation Twice a day for 30 days 06/12/2023 Active ProAir HFA 108 (90 Base) MCG/ACT 2 puffs as needed Inhalation every 4 hrs for 30 days 08/30/2015 Active Albuterol Sulfate HFA 108 (90 Base) MCG/ACT 1 puff as needed Inhalation every 4 hrs for 30 days 05/08/2023 Active Albuterol Sulfate (2.5 MG/3ML) 0.083% 3 ml as needed Inhalation every 4 hrs for 30 days 04/04/2021 Not-Taking Benadryl Allergy 25 MG 1 tablet at bedti me as needed Orally Once a day for 30 day(s) Active Omeprazole 20 MG 1 capsule 30 minutes before morning meal Orally Once a day for 30 day(s) 07/21/2019 Not-Taking amLODIPine Besylate 10 MG TAKE 1 TABLET BY MOUTH EVERY DAY FOR 90 DAYS Orally Once a day Active Wixela Inhub 250-50 MCG/ACT 1 puff Inhalation Twice a day 04/21/2022 Active IMMUNIZATIONS Vaccine Route Administration Date Status Comme nts Flu Vaccine IM Intramuscular 08/18/2013 Administered Fluarix Quadrivalent IM Intramuscular 05/28/2014 Administe red PPSV23 (Pnemovax) IM Intramuscular 09/01/2014 Administered Fluarix Quadrivalent IM Intramuscular 07/16/2015 Administe red Fluarix Quadrivalent IM Intramuscular 06/13/2016 Administe red Fluarix Quadrivalent IM Intramuscular 06/22/2017 Administe red Fluarix Quadrivalent IM Intramuscular 06/04/2018 Administe red Fluarix Quadrivalent IM Intramuscular 06/16/2019 Administe red PPSV23 (Pnemovax) IM Intramuscular 10/28/2019 Administered Fluarix Quadrivalent IM Intramuscular 06/24/2020 Administe red SARS-COV-2 Pfizer Unknown 01/05/2021 Administered SARS-COV-2 Pfizer Unknown 01/26/2021 Administered Fluarix Quadrivalent IM Intramuscular 06/27/2021 Administe red Flu Vaccine Unknown 05/28/2014 Pending SOCIAL HISTORY Tobacco Use: Social History Observation Description Date Details (start date - stop date) Never Smoker NA - NA Sex Assigned At : Social History Observation Description Sex Assigned At Unknown Tobacco Use/Smoking Question Answer Notes Patient is a nonsmoker Additional Findings: Tobacco Non-User Cu rrent non-smoker, currently using no form of tobacco Alcohol Screen Question Answer Notes Did you have a drink contain ing alcohol in the past year? Yes How often did you have a dri nk containing alcohol in the past year? 2 to 4 times a month (2 points) How many drinks did you have on a typical day when you were drinking in the past year? 1 or 2 drinks (0 point) How often did you have 6 or more drinks on one occasion in the past year? Never (0 point) Points 2 Interpretation Negative PROBLEMS Problem Type ICD Code Onset Dates Problem Status W/U Status Risk SNOMED Code Notes Problem Reflux esophagitis (K21.00) Active confirmed 042906642 Problem Gynecomastia, male (N62) Active confirmed 5073501 Problem Essential hypertension (I10) Active confirmed 24876046 Problem Acquired hypothyroidism (E03.9) Active confirmed 700952548 Problem Mild intermittent asthma without complication (J45.20) Active confirmed 764321937 Problem Prediabetes (R73.09) Active confirmed 6213706 Problem Migraine with aura and without status migrainosus, not intractable (G43.109) Active confirmed 9891109 Problem Obstructive sleep apnea (G47.33) Active confirmed Obstructive sleep apnea (39211977) Problem Elevated LDL cholesterol level (E78.00) Active confirmed 230644801 Problem SHANE (obstructive sleep apnea) (G47.33) Active confirmed 79640472 Problem BMI 40.0-44.9, adult (Z68.41) Active confirmed Body mass index 40+ - morbidly obese (798273250) Problem Closed fracture of multiple ribs of left side with delayed healing, subsequent encounter (S22.42XG) Active confirmed VITAL SIGNS Blood pressure diastolic 80 mm Hg 06/11/2023 jenny ght is up 6 pounds since 05-01-23 Height 66 in 06/11/2023 weight is up 6 pounds since 05-01-23 Blood pressure systolic 122 mm Hg 06/11/2023 weig ht is up 6 pounds since 05-01-23 Weight 248 lbs 06/11/2023 weight is up 6 pounds since 05-01-23 BMI 40.02 kg/m2 06/11/2023 weight is up 6 pounds since 05-01-23 Encounters Encounter Location Date Provider Diagnosis Aston Fox MD [address] [place] [address] [place] [address] [id number] 08/01/2022 Aston Fox Essential hypertensi on I10 ; Adult general medical exam Z00.00 ; Acquired hypothyroidism E03.9 ; Mild intermittent asthma without complication J45.20 ; Prediabetes R73.09 ; Colon cancer screening Z12.11 ; Depression screen Z13.31 and Encounter for screening for other viral diseases Z11.59 Aston Fox MD [address] [place] [address] [id number] 07/31/2022 Aston Fox Blood tests for routine general physical examination Z00.00 ; Essential hypertension I10 ; Acquired hypothyroidism E03.9 ; Prediabetes R73.09 and Elevated LDL cholesterol level E78.00 Aston Fox MD [address] [place] [address] [id number] 02/06/2023 Aston Fox Prediabetes R73.09 Aston Fox MD [address] [place] [address] [id number] 04/24/2023 Aston Fox Prediabetes R73.09 ; Closed fracture of multiple ribs of left side with delayed healing, subsequent encounter S22.42XG and BMI 40.0-44.9, adult Z68.41 Aston Fox MD [address] [place] [address] [id number] 06/11/2023 Aston Fox Nasal congestion R09.81 and BMI 40.0-44.9, adult Z68.41 Aston Fox MD [address] [place] [address] [id number] 07/13/2022 Aston Fox MD [address] [place] [address] [id number] 01/19/2023 Aston Fox Acquired hypothyroidism E03.9 Aston Fox MD [address] [place] [address] [id number] 03/05/2023 Aston Fox Essential hypertensi on I10 and Mild intermittent asthma without complication J45.20 Aston Fox MD [address] [place] [address] [id number] 03/29/2023 Aston Fox MD [address] [place] [address] [id number] 04/10/2023 Aston Fox MD [address] [place] [address] [id number] 05/08/2023 Aston Fox Mild intermittent asthma without complication J45.20 Aston Fox MD [address] [place] [address] [id number] 05/08/2023 Aston Fox MD [address] [place] [address] [id number] 05/24/2023 Aston Fox MD [address] [place] [address] [id number] 06/12/2023 Aston Fox MD [address] [place] [address] [id number] 09/08/2022 Aston Fox COVID-19 U07.1 Aston Fox MD [address] [place] [address] [id number] 05/01/2023 Aston Fox Mild intermittent asthma without complication J45.20 and Bronchitis J40 Aston Fox MD [address] [place] [address] [id number] 05/02/2023 Aston Fox ASSESSMENTS Encounter Date Diagnosis Assessment Notes Treatment Notes Treatment Clinical Notes 08/01/2022 Essential hypertension (ICD-10 - I10) doing great on meds 08/01/2022 Adult general medical exam (ICD-10 - Z00.00) labs reviewed and discussed with patient 07/31/2022 Essential hypertension (ICD-10 - I10) 07/31/2022 Blood tests for routine general physical examination (ICD-10 - Z00.00) 02/06/2023 Prediabetes (ICD-10 - R73.09) A1C is WNL. No need for meds at this time. 04/24/2023 Prediabetes (ICD-10 - R73.09) stable, no need for medication at this time 04/24/2023 Closed fracture of multiple ribs of left side with delayed healing, subsequent encounter (ICD-10 - S22.42XG) Order given to the patient. pending diagnostic testing 06/11/2023 Nasal congestion (ICD-10 - R09.81) needs to stop equate 06/11/2023 BMI 40.0-44.9, adult (ICD-10 - Z68.41) is working to get the surgery 01/19/2023 Acquired hypothyroidism (ICD-10 - E03.9) 03/05/2023 Essential hypertension (ICD-10 - I10) 05/08/2023 Mild intermittent asthma without complication (ICD-10 - J45.20) 09/08/2022 COVID-19 (ICD-10 - U07.1) due to his lung disease will catracho 05/01/2023 Bronchitis (ICD-10 - J40) 05/01/2023 Mild intermittent asthma without complication (ICD-10 - J45.20) Patient verbalizes understanding of medications side effects, interactions and warnings. 08/01/2022 Acquired hypothyroidism (ICD-10 - E03.9) tsh good 07/31/2022 Acquired hypothyroidism (ICD-10 - E03.9) 04/24/2023 BMI 40.0-44.9, adult (ICD-10 - Z68.41) discussed diet 03/05/2023 Mild intermittent asthma without complication (ICD-10 - J45.20) 08/01/2022 Mild intermittent asthma without complication (ICD-10 - J45.20) has a little cough left over from his infection but is doing well 07/31/2022 Prediabetes (ICD-10 - R73.09) 08/01/2022 Prediabetes (ICD-10 - R73.09) a1c doing well and encouraged that he has lost 24 pounds 07/31/2022 Elevated LDL cholesterol level (ICD-10 - E78.00) 08/01/2022 Colon cancer screening (ICD-10 - Z12.11) guaiac negative 08/01/2022 Depression screen (ICD-10 - Z13.31) negative screen 08/01/2022 Encounter for screening for other viral diseases (ICD-10 - Z11.59) no covid sx's PLAN OF TREATMENT Pending Test Test Name Order Date Electrocardiogram (EKG) 05/17/2017 XR CHEST 2 VIEW PA & LAT 04/07/2021 Sleep Study - Baseline 04/11/2021 Next Appt Details Provider Name:Aston ordoñez, 07/30/2023 07:15:00 AM, [address] [place] [address], Suite [facility], [place], [place], [phone], Provider Name:Aston ordoñez, 08/07/2023 09:30:00 AM, [address] [place] [address], [place] [address], [place], [place], [phone], Insurance Providers Payer Name Payer Address Payer Phone Subscriber Number Group Number Insured Name Patient Relationship to Insured Coverage Start Date Coverage End Date [facility] [address] [address] [place] [phone] [id number] Rachel Wynn Self - patient is the insured [facility] [address] [place] [address] [id number] Rachel Wynn Self - patient is the insured MEDICAL (GENERAL) HISTORY Medical History History ICD Code had been on flovent alone with no improv ement Colonoscopy- done 12/09/[address] Natalia rodriguez - repeat 10 years
== END 2023-07-10 10:00 | disposition home or self-care (01) ==
LOC: HO.HBS 09:43
PROVIDERS: PCP Internal Medicine; Visit Provider Dietitian, Registered
DX: E66.9 Obesity, unspecified (principal)

== ENCOUNTER → 2023-07-10 09:43 | Outpatient (BNVA) | payer OTHER, SELFPAY | PROVIDERS: PCP Internal Medicine; Visit Provider Dietitian, Registered | DX: E66.9 Obesity, unspecified (principal) | CPT/HCPCS: 97802 ==

== ENCOUNTER → 2023-07-11 07:38 | Outpatient (REF) | payer OTHER, SELFPAY ==
--- NOTE | 2023-07-11 07:40 | CA_ITS ---
Transthoracic Echocardiogram Patient (Last, First, Middle): Asaf Wynn A Gender: Male Date of : 1970 Age: 53 Procedure Date: 07/11/2023 Procedure Type: Transthoracic Echocardiogram Location: OP Height: 167.64 cm Weight: 105.24 kg BSA: 2.13 m2 Heart Rate: bpm BP: 120 / 80 mmHg Disease Education Specialist: TEODORA/ELY Referring MD: Ruddy May MD Symptoms: R94.31 - Abnormal electrocardiogram [ECG] [EKG] Study Quality: Adequate with contrast ECG Rhythm: Sinus Conclusions: - The left ventricular systolic function is normal. The calculated ejection fraction is 59% by biplane method. - No obvious valvular pathology seen on this study. Findings Procedure Information Contrast agent, definity, is being given per protocol without apparent complications. Left Ventricle Normal left ventricular cavity size. There is normal left ventricular wall thickness. The left ventricular systolic function is normal. The calculated ejection fraction is 59% by biplane method. There is no evidence of regional wall motion abnormalities. Diastolic function is normal for age. Right Ventricle Mildly increased right ventricular cavity size. There is normal right ventricular systolic function. Atria Both atria are normal in size. Aortic Valve There is a normal trileaflet aortic valve. There is no aortic valve stenosis. There is no aortic valve regurgitation. Mitral Valve The mitral valve appears normal. There is no mitral valve regurgitation. There is no mitral valve stenosis. Pulmonic Valve The pulmonic valve is likely normal. Tricuspid Valve There is trace tricuspid valve regurgitation. There is no evidence of pulmonary hypertension. Great Vessels The asc aorta is normal in size. Venous The inferior vena cava is mildly dilated and collapses greater than 50% with inspiration. Pericardium/Pleural There is no evidence of pericardial effusion. Prior Study Comparison No prior study available for comparison. Recommendations, Care & Conclusions No obvious valvular pathology seen on this study. Measurements 2D Linear Measurements IVSd: 1.10 0.6-0.9/0.6-1.0 cm LVIDd: 5.40 3.9-5.3/4.2-5.9 cm LVIDd Index: 2.54 2.4-3.2/2.2-3.1 cm/m2 LVIDs: 3.40 2.0-3.6 cm LVPWd: 1.10 0.7-1.1 cm LA Diam: 4.00 2.7-3.8/3.0-4.0 cm LAIDs Index: 1.88 1.5-2.3 cm/m2 LV Mass: 292.77 67-162/88-224 g LV Mass Index: 137.45 43-95/49-115 g/m2 LVOT Diam: 2.20 3.0+(-)1.3 cm 2D Systolic Function EF 4C: 56.90 >55% EF 2C: 64.10 >55% EF BiP: 59.20 >55% Mitral Valve MV Pk E: 0.90 MV PK A: 0.53 MV Decel Time: 155.00 E/A: 1.70 E'Lateral: 14.60 E'Medial: 8.49 E/E' Med: 10.60 E/E' Lat: 6.20 PHT: 45.00 MVA PHT: 4.89 Decel [place]: 5.81 Aortic Valve AoV Pk Gonzalo: 1.36 AoV Mn Gonzalo: 0.94 AoV VTI: 0.31 AoV Pk Grad: 7.00 Aov Mn Grad: 4.00 GUILLERMO Cont.VTI: 2.43 LVOT LVOT Pk Gonzalo: 0.86 LVOT Mn Gonzalo: 0.57 LVOT VTI: 0.20 LVOT Pk Grad: 3.00 LVOT Mn Grad: 2.00 LVOT Diam: 2.20 LVOT Area: 3.80 Diastolic Function MV Pk E: 0.90 MV Pk A: 0.53 E/A: 1.70 E'Medial: 8.49 E/E' Med: 10.60 E' Laterial: 14.60 E/E' Lat: 6.20 Right Ventricle TAPSE (mm): 23.80 TVS' Gonzalo: 11.70 Tricuspid Valve RA Press: 8.00 Great Vessels Aorta Sinus of Valsalva: 3.70 2.0-3.[address] [place]: 2.60 1.7-3.4 cm Ao Asc: 3.30 2.1-3.4 cm Updated in Other Vendor System with Status of Final Navjot Castro MD electronically signed on 07/13/2023 11:33:07 AM with status of Final
== END ==
LOC: HO.CARD 07:38
PROVIDERS: PCP Internal Medicine; Visit Provider Surgery
DX: R94.31 Abnormal electrocardiogram [ECG] [EKG] (principal)
CPT/HCPCS: 93306; Q9957

== ENCOUNTER → 2023-07-11 07:40 | Outpatient (BNV) | payer OTHER, SELFPAY | PROVIDERS: PCP Internal Medicine; Visit Provider Internal Medicine | DX: R94.31 Abnormal electrocardiogram [ECG] [EKG] (principal) | CPT/HCPCS: 93306 ==

== ENCOUNTER → 2023-07-23 07:39 | Outpatient (REF) | payer OTHER, SELFPAY ==
--- NOTE | ~2023-07-23 | NM_ITS ---
Exercise Myocardial perfusion study Indication: Abnormal EKG to evaluate for myocardial ischemia Technique: The patient was brought in for an exercise perfusion study on 07/23/2023. Patient performed exercise as per Xavier protocol and was injected 40 mCi of sestamibi was given intravenously one target HR was achieved. Images were obtained using the SPECT gamma camera interlaced with the gating device. Images were obtained in supine position. Resting perfusion study was performed on 07/24/2023. Patient was administered 40 mCi of sestamibi intravenously at rest. Images were then obtained in supine position. Images obtained with and without CT attenuation. Total DLP 129 mGy-cm Images were processed with the software and compared side to side in short axis, horizontal long axis and vertical long axis views. Findings: The stress perfusion study showed non attenuated images show moderately reduced uptake in the basal inferior and basal inferolateral wall of the LV myocardium. Remainder of the LV myocardium is normally perfused. Attenuation corrected images show normal uptake of radiotracer in all segments of LV myocardium. The gated study shows normal LV function with calculated LVEF of 55%. LV cavity is normal in size. The gated study shows normal systolic wall thickening and contraction of all segments. There is no transient ischemic dilation. Resting study shows no change in perfusion pattern compared to stress perfusion study. Gating at rest reveals normal systolic wall motion with ejection fraction at greater than 50%. The findings are consistent with normal myocardial perfusion. NM/NM jono perf SPECT rest & str Impression: 1. Normal myocardial perfusion 2. Gated LVEF is 55% 3. Transient ischemic dilatation not present Stress EKG is negative for ischemia
--- NOTE | 2023-07-23 07:41 | CA_ITS ---
Acquisition Time: 2023-07-23 07:59:03 Total Exercise Time: 00:07:31 Test Indications: Abnormal ECG Medications: SEE H Protocol: TORIN Max HR: 148 BPM 88% of Pred: 168 BPM Max BP: 142/074 mmHG Max Work Load: 9.3 METS Exercise stress test with exercise 7 min 31 sec of Torin protocol, achieving 88% MPHR, 9.3 METs, without anginal symptoms, with isolated PVCs, with normotensive response to exercise, without EKG changes meeting criteria for ischemia. Nuclear images pending. Test reviewed with Dr Tapia. Referred By: Ruddy May Overread By: TONE PINO
== END ==
LOC: HO.CARD 07:39
PROVIDERS: PCP Internal Medicine; Visit Provider Surgery
DX: R94.31 Abnormal electrocardiogram [ECG] [EKG] (principal)
CPT/HCPCS: 78452; 93017; A9500

== ENCOUNTER → 2023-07-23 08:23 | Outpatient (BNV) | payer OTHER, SELFPAY | PROVIDERS: PCP Internal Medicine; Visit Provider Internal Medicine Cardiovascular Disease | DX: R94.31 Abnormal electrocardiogram [ECG] [EKG] (principal) | CPT/HCPCS: 78452; 93016; 93018 ==

== ENCOUNTER 2023-07-30 07:55 | Outpatient (AMB) | payer OTHER, SELFPAY ==
--- OUTSIDE RECORDS SUMMARY | 2023-07-30 07:56 | XMS_ITS | Patient Health Record ---
Author Name Unknown Organization Aston Fox MD Address [address] [place], [place] [id number] Care Team Providers Care [employer] Inspector Name Role Phone Aston Fox Primary Care Provider ALLERGIES Allergen (clinical drug ingredient) Drug/Non Drug Allergy documented on EMR Reaction Allergy Type Onset Date Status Joceline (uncoded) rash Allergy Ac tive Penicillin (uncoded) rash Allergy Active RESULTS Component Value Reference Range Notes Hemoglobin A1c Reviewed date:02/06/2023 02:41:09 PM Interpretation: Performing Lab: Notes/Report: Value Hemoglobin A1c 5.5 Complete Blood Count Auto Di ff Reviewed date:07/31/2022 12:44:33 PM Interpretation: Performing Lab:[facility], [address] [place] [phone] Notes/Report: White Blood Count 6.5 4.8-10.8 X10*3/uL [...] Microscopic Reviewed date:07/31/2022 12:45:06 PM Interpretation: Performing Lab:[facility], [address] [place] [phone] Notes/Report: Color Urine Yellow Appearance Urine Clear PH 8.0 5.0-9.0 Glucose Urine UA Negative Negative mg/dL Urine Blood Negative Negative Specific [place] - Urine 1.010 1.005-1.025 Urine Protein Negative Neg-Trace mg/dL Urine Ketones Negative Negative mg/dL Nitrite Urine Negative Negative Leukocyte Esterase Urine Negative Negative RBC Urine 0-2 0-2 /HPF WBC Urine 0-5 0-5 /HPF Squamous Epithelial Cell Urine 0-2 0-2 /HPF Bacteria Urine None Seen None Seen Hyaline Casts Urine 0-2 0-2 /LPF Comprehensive [place]. Panel Fa st Reviewed date:07/31/2022 12:44:49 PM Interpretation: Performing Lab:[address] [address] Notes/Report: Sodium 142 135-145 mmol/L Potassium 4.0 3.3-5.1 mmol/L Chloride 100 96-108 mmol/L Carbon Dioxide 27 22-29 mmol/L Anion Gap 19 12-20 Blood Urea Nitrogen 17 9-16 mg/dL Creatinine 0.81 0.5-1.4 mg/dL Estimated Glomerular Filt Rate > 60 NOTE: For -[place] individuals, multiply the result by 1.210. Chronic [...] Panel Reviewed date:07/31/2022 12:28:28 PM Interpretation: Performing Lab:[facility], [address] [place] [phone] Notes/Report: Triglycerides 51 Desirable Triglyceride: less than [...] (Free>4and<10) Reviewed date:07/31/2022 12:15:19 PM Interpretation: Performing Lab:[address] [phone] Notes/Report: PSA,Total (Free>4and<10) 0.99 0.00-4.00 ng/mL A [...] 4.0 and 10.0 ng/mL. PSA methodology: Benz Monomer Recovery Supervisor Chemiluminescent Microparticle Immunoassay TSH reflex Free T4 Reviewed date:07/31/2022 12:30:15 PM Interpretation: Performing Lab:[facility], [address] [place] [phone] Notes/Report: TSH reflex Free T4 1.25 0.32-4.0 uIU/mL Microalbumin, Random Reviewed date:07/31/2022 12:39:54 PM Interpretation: Performing Lab:[facility], [address] [place] [phone] Notes/Report: Creatinine Urine 25.83 Microalbumin Urine 16.0 Microalbum/Creatinine Ratio Ur 61.9 Albumin/Creatinine Ratio Reference Ranges: Normal: < 30 ug/mg creatinine Microalbuminuria: 30 - 300 ug/mg creatinine Clinical Albuminuria: > 300 ug/mg creatinine Hemoglobin A1c Reviewed date:07/31/2022 12:44:16 PM Interpretation: Performing Lab:[facility], [address] [place] [phone] Notes/Report: Hemoglobin A1c % 5.2 Hemoglobin A1C [...] average glucose, using the formula of the H9S-Dzmkswy Average Glucose study (ADAG), Diabetes Care, Vol.31,#8, [...] date:05/04/2023 09:43:29 AM Interpretation: Performing Lab: Notes/Report: [address] [address] XRay Report Signed Patient: Rachel Wynn MR#: [id number] 159 : 1970 Acct:[id number] Age/Sex: 52 / M ADM Date: 04/24/23 Loc: HO.PETER Attending Dr: Aston Fox MD Ordering Physician: Aston Fox MD Date of Service: 04/24/23 Procedure(s): XR ribs LT min 3V w CXR1V Accession Number(s): [id number] cc: Aston Fox MD EXAMINATION: XR RIBS, [...] by Preston Plata MD in OV> 05/01/23 9690 DD/ 1115 TD/TT: Circulation Supervisor: Complete Blood Count Auto Di ff Reviewed date:06/11/2023 12:25:07 PM Interpretation: Performing Lab:[facility], [address] [place] [phone] Notes/Report: White Blood Count 7.5 4.8-10.8 X10*3/uL [...] Panel Reviewed date:06/11/2023 10:48:59 AM Interpretation: Performing Lab:[facility], [address] [place] [phone] Notes/Report: Sodium 138 135-145 mmol/L Potassium 3.5 3.3-5.1 mmol/L Chloride 102 96-108 mmol/L Carbon Dioxide 27 22-29 mmol/L Anion Gap 13 12-20 Blood Urea Nitrogen 17 9-16 mg/dL Creatinine 0.82 0.5-1.4 mg/dL Estimated Glomerular Filt Rate > 60 NOTE: For -[place] individuals, multiply the result by 1.210. Chronic [...] PROFILE Reviewed date:06/11/2023 09:55:23 AM Interpretation: Performing Lab:[facility], [address] [place] [phone] Notes/Report: Iron 147 45-160 mcg/dL Total Iron Binding Capacity 325 228-428 mcg/d L Percent Iron Saturation 45 15-50 % Unsaturated Iron Binding 178 Ferritin Reviewed date:06/11/2023 09:55:31 AM Interpretation: Performing Lab:[facility], [address] [place] [phone] Notes/Report: Ferritin 258 20-250 ng/mL C Reactive Protein Reviewed date:06/11/2023 09:55:07 AM Interpretation: Performing Lab:[facility], [address] [place] [phone] Notes/Report: C Reactive Protein 0.45 < or = 0.50 mg/dL Lipid Panel Reviewed date:06/11/2023 09:55:15 AM Interpretation: Performing Lab:[facility], [address] [place] [phone] Notes/Report: Triglycerides 102 <150 mg/dL Desirable Triglyceride: [...] Folate Reviewed date:06/11/2023 09:28:24 AM Interpretation: Performing Lab:[facility], [address] [place] [phone] Notes/Report: Vitamin B12 476 200-900 pg/mL NORMAL 200-900 PG/ML INDETERMINATE 160-199 PG/ML DEFICIENT < 160 PG/ML Folate 13.0 > or = 4.0 ng/mL Reference Values: > or = 4.0 ng/mL < 4.0 ng/mL suggests folate deficiency Methotrexate, aminopterin and folinic acid (leucovorin) are chemotherapeutic agents whose molecular structures are similar to folate; therefore, the Monomer Recovery Supervisor folate assay cannot be used for patients using these drugs. Vitamin A Reviewed date:06/17/2023 06:39:19 PM Interpretation: Performing Lab:[address] [address] Notes/Report: Vitamin A 62 38-98 mcg/dL Vitamin supplementation within 24 hours prior to blood draw may affect the accuracy of the results. This test was developed and its analytical performance characteristics have been determined by [facility] [place], [place]. It has not been cleared or approved by the U.S. Food and Drug Administration. This assay has been validated pursuant to the CLIA regulations and is used for clinical purposes. THIS TEST WAS PERFORMED AT: [facility] [address] MATTHEW MANDEL MD,PHD Vitamin B1 Reviewed date:06/17/2023 06:38:18 PM Interpretation: Performing Lab:[facility], [address] [place] [phone] Notes/Report: Vitamin B1 7 8-30 nmol/L Vitamin supplementation within 24 hours prior to blood draw may affect the accuracy of the results. This test was developed and its analytical performance characteristics have been determined by [facility] [place] [place]. It has not been cleared or approved by the U.S. Food and Drug Administration. This assay has been validated pursuant to the CLIA regulations and is used for clinical purposes. THIS TEST WAS PERFORMED AT: [facility] [address] [place], [place] MATTHEW MANDEL MD,PHD Vitamin D 25-OH Total Reviewed date:06/11/2023 10:48:05 AM Interpretation: Performing Lab:[address] [address] Notes/Report: Vitamin D 25-OH Total 42.2 >30 [...] T4 Reviewed date:06/11/2023 09:55:51 AM Interpretation: Performing Lab:[address] [address] Notes/Report: TSH reflex Free T4 1.83 0.32-4.0 uIU/mL PTHI Reviewed date:06/12/2023 04:18:19 PM Interpretation: Performing Lab:[address] [address] Notes/Report: PTHI 29 16-77 pg/mL Interpretive Guide Intact PTH Calcium ------- Normal Parathyroid Normal Normal Hypoparathyroidism Low or Low Normal Low Hyperparathyroidism Primary Normal or High High Secondary High Normal or Low Tertiary High High Non-Parathyroid Hypercalcemia Low or Low Normal High Calcium (PTHI) 9.8 8.6-10.3 mg/dL THIS TEST WAS PERFORMED AT: [facility] [address] [place] [phone] FLOR BETANCOURT MD Zinc Reviewed date:06/15/2023 08:35:47 AM Interpretation: Performing Lab:[facility], [address] [place] [phone] Notes/Report: Zinc 76 60-130 mcg/dL This test was developed and its analytical performance characteristics have been determined by [facility] [place], [place]. It has not been cleared or approved by the U.S. Food and Drug Administration. This assay has been validated pursuant to the CLIA regulations and is used for clinical purposes. THIS TEST WAS PERFORMED AT: [facility] MATTHEW MANDEL MD,PHD Hemoglobin A1c Reviewed date:06/11/2023 09:29:00 AM Interpretation: Performing Lab:[facility], [address] [place] [phone] Notes/Report: Hemoglobin A1c % 5.1 <6.0 % [...] average glucose, using the formula of the J6S-Etezrqx Average Glucose study (ADAG), Diabetes Care, Vol.31,#8, 2007 Insulin Reviewed date:06/11/2023 09:28:37 AM Interpretation: Performing Lab:[facility], [address] [place] [phone] Notes/Report: Insulin 11 2-29 uU/mL This test [...] date:06/12/2023 12:08:20 PM Interpretation: Performing Lab: Notes/Report: [address] [address] XRay Report Signed Patient: Rachel Wynn MR#: [id number] 159 : 1970 Acct:[id number] Age/Sex: 53 / M ADM Date: 06/11/23 Loc: HO.LAB Attending Dr: Ruddy May MD Ordering Physician: Ruddy May MD Date of Service: 06/11/23 Procedure(s): XR chest 2V Accession Number(s): [id number] cc: Aston Fox MD; Ruddy May MD [...] in OV> 06/12/23 1009 DD/ 0741 TD/TT: Circulation Supervisor: H Pylori Breath Test Reviewed date:06/17/2023 06:38:27 PM Interpretation: Performing Lab:[facility], [address] [place] [phone] Notes/Report: H Pylori Breath Test Negative Negative Antimicrobials, proton pump inhibitors and bismuth preparations are known to suppress H. pylori. Ingesting these medications within two weeks prior to performing the breath test may produce negative test results. A positive result is still clinically valid. US abdomen comp w elastograp hy Reviewed date:07/03/2023 09:06:31 AM Interpretation: Performing Lab: Notes/Report: [address] [address] Ultrasound Report Signed Patient: Rachel Wynn MR#: [id number] 159 : 1970 Acct:[id number] Age/Sex: 53 / M ADM Date: 06/28/23 Loc: HO.US Attending Dr: Ruddy May MD Ordering Physician: Ruddy May MD Date of Service: 06/28/23 Procedure(s): US abdomen comp w elastography Accession Number(s): [id number] cc: Aston Fox MD; Ruddy May MD [...] in OV> 07/02/23 1650 DD/ 1040 TD/TT: Circulation Supervisor: ROSSANA FL upper GI w air Reviewed date:07/03/2023 11:36:02 AM Interpretation: Performing Lab: Notes/Report: [address] [address] Fluoroscopy Report Signed Patient: Rachel Wynn MR#: [id number] 159 : 1970 Acct:[id number] Age/Sex: 53 / M ADM Date: 07/03/23 Loc: HO.XRAY Attending Dr: Ruddy May MD Ordering Physician: Ruddy May MD Date of Service: 07/03/23 Procedure(s): FL upper GI w air Accession Number(s): [id number] cc: Aston Fox MD; Ruddy May MD EXAMINATION: XR FLUOROSCOPY UPPER GI [...] in OV> 07/03/23 1126 DD/ 1020 TD/TT: Circulation Supervisor: EMIL de la cruz perf SPECT rest & str Reviewed date:07/24/2023 05:00:39 PM Interpretation: Performing Lab: Notes/Report: [place] [address] Nuclear Medicine Report Signed Patient: Rachel Wynn MR#: [id number] 159 : 1970 Acct:[id number] Age/Sex: 53 / M ADM Date: 07/23/23 Loc: [facility] Attending Dr: Ruddy May MD Ordering Physician: Ruddy May MD Date of Service: 07/23/23 Procedure(s): NM jono perf SPECT rest str Accession Number(s): [id number] cc: Aston Fox MD; Ruddy May MD Exercise Myocardial perfusion study Indication: Abnormal EKG to evaluate for myocardial ischemia Technique: The patient was brought in for an exercise perfusion study on 07/23/2023. Patient performed exercise as per Xavier protocol and was injected 40 mCi of sestamibi was given intravenously one target HR was achieved. Images were obtained using the SPECT gamma camera interlaced with the gating device. Images were obtained in supine position. Resting perfusion study was performed on 07/24/2023. Patient was administered 40 mCi of sestamibi intravenously at rest. Images were then obtained in supine position. Images obtained with and without CT attenuation. Total DLP 129 mGy-cm Images were processed with the software and compared side to side in short axis, horizontal long axis and vertical long axis views. Findings: The stress perfusion study showed non attenuated images show moderately reduced uptake in the basal inferior and basal inferolateral wall of the LV myocardium. Remainder of the LV myocardium is normally perfused. Attenuation corrected images show normal uptake of radiotracer in all segments of LV myocardium. The gated study shows normal LV function with calculated LVEF of 55%. LV cavity is normal in size. The gated study shows normal systolic wall thickening and contraction of all segments. There is no transient ischemic dilation. Resting study shows no change in perfusion pattern compared to stress perfusion study. Gating at rest reveals normal systolic wall motion with ejection fraction at greater than 50%. The findings are consistent with normal myocardial perfusion. NM/NM jono perf SPECT rest str Impression: 1. Normal myocardial perfusion 2. Gated LVEF is 55% 3. Transient ischemic dilatation not present Stress EKG is negative for ischemia Dictated By: Jd Dorsey MD Signed By: <Electronically signed by Jd Dorsey MD in OV> 07/24/23 1547 DD/ 0830 TD/TT: Circulation Supervisor: REASON FOR REFERRAL Reason Bariatric surgery Diagnosis [...] 11:14:21 AM EDT > info faxed phone [phone], Catia Sewell 2023 03:31:57 PM EDT > [...] Once a day for 90 days Active amLODIPine Besylate 10 MG TAKE 1 TABLET BY MOUTH EVERY DAY FOR 90 DAYS Orally Once a day for 90 [...] a day for 30 day(s) 07/21/2019 Not-Taking Wixela Inhub 250-50 MCG/ACT 1 puff Inhalation [...] Fluarix Quadrivalent IM Intramuscular 06/27/2021 Administe red Fluarix Quadrivalent IM Intramuscular 07/30/2023 Administe red Flu Vaccine Unknown 05/28/2014 Pending [...] Notes Problem Reflux esophagitis (K21.00) Active confirmed 589665054 Problem Gynecomastia, male (N62) Active confirmed 9938030 Problem Essential hypertension (I10) Active confirmed 97746181 Problem Acquired hypothyroidism (E03.9) Active confirmed 600879157 Problem Mild intermittent asthma without complication (J45.20) Active confirmed 480557440 Problem Prediabetes (R73.09) Active confirmed 2316212 Problem Migraine with aura and without status migrainosus, not intractable (G43.109) Active confirmed 4534280 Problem Obstructive sleep apnea (G47.33) Active confirmed Obstructive sleep apnea (41439786) Problem Elevated LDL cholesterol level (E78.00) Active confirmed 750991591 Problem SHANE (obstructive sleep apnea) (G47.33) Active confirmed 56142564 Problem BMI 40.0-44.9, adult (Z68.41) Active confirmed Body mass index 40+ - morbidly obese (265395339) Problem Closed fracture of multiple ribs of [...] Location Date Provider Diagnosis Aston Fox MD [address] [place] [id number] 08/01/2022 Aston Fox Essential hypertensi on I10 ; Adult general medical exam Z00.00 ; Acquired hypothyroidism E03.9 ; Mild intermittent asthma without complication J45.20 ; Prediabetes R73.09 ; Colon cancer screening Z12.11 ; Depression screen Z13.31 and Encounter for screening for other viral diseases Z11.59 Aston Fox MD [address] [place] [id number] 07/31/2022 Aston Fox Blood tests for routine general physical examination Z00.00 ; Essential hypertension I10 ; Acquired hypothyroidism E03.9 ; Prediabetes R73.09 and Elevated LDL cholesterol level E78.00 Aston Fox MD [address] [place] [address] [id number] 07/30/2023 Aston Fox Blood tests for routine general physical examination Z00.00 ; Essential hypertension I10 ; Prediabetes R73.09 ; Elevated LDL cholesterol level E78.00 ; Acquired hypothyroidism E03.9 and Encounter for immunization Z23 Aston Fox MD [address] [place] [id number] 02/06/2023 Aston Fox Prediabetes R73.09 Aston Fox MD [address] [place] [address] [id number] 04/24/2023 Aston Fox Prediabetes R73.09 ; Closed fracture of multiple ribs of left side with delayed healing, subsequent encounter S22.42XG and BMI 40.0-44.9, adult Z68.41 Aston Fox MD [address] [place] [id number] 06/11/2023 Aston Fox Nasal congestion R09.81 and BMI 40.0-44.9, adult Z68.41 Aston Fox MD [address] [place] [address] [id number] 01/19/2023 Aston Fox Acquired hypothyroidism E03.9 Aston Fox MD [address] [place] [id number] 03/05/2023 Aston Fox Essential hypertensi on I10 and Mild intermittent asthma without complication J45.20 Aston Fox MD [address] [place] [id number] 03/29/2023 Aston Fox MD [address] [place] [address] [id number] 04/10/2023 Aston Fox MD [address] [place] [address] [id number] 05/08/2023 Aston Fox Mild intermittent asthma without complication J45.20 Aston Fox MD [address] [place] [address] [id number] 05/08/2023 Aston Fox MD [address] [place] [address] [id number] 05/24/2023 Aston Fox MD [address] [place] [address] [id number] 06/12/2023 Aston Fox MD [address] [place] [address] [id number] 07/10/2023 Aston Fox Essential hypertensi on I10 Aston Fox MD [address] [place] [address] [id number] 09/08/2022 Aston Fox COVID-19 U07.1 Aston Fox MD [address] [place] [address] [id number] 05/01/2023 Aston Fox Mild intermittent asthma without complication J45.20 and Bronchitis J40 Aston Fox MD [address] [place] [address] [id number] 05/02/2023 Aston Fox ASSESSMENTS Encounter Date Diagnosis Assessment Notes Treatment Notes Treatment Clinical Notes 08/01/2022 Essential hypertension (ICD-10 - I10) doing great on meds 08/01/2022 Adult general medical exam (ICD-10 - Z00.00) labs reviewed and discussed with patient 07/31/2022 Essential hypertension (ICD-10 - I10) 07/31/2022 Blood tests for routine general physical examination (ICD-10 - Z00.00) 07/30/2023 Essential hypertension (ICD-10 - I10) 07/30/2023 Blood tests for routine general physical examination [...] intermittent asthma without complication (ICD-10 - J45.20) 07/10/2023 Essential hypertension (ICD-10 - I10) 09/08/2022 COVID-19 (ICD-10 - U07.1) due to his lung disease will catracho 05/01/2023 Bronchitis (ICD-10 - J40) 05/01/2023 Mild intermittent asthma without complication (ICD-10 - J45.20) Patient verbalizes understanding of medications side effects, interactions and warnings. 08/01/2022 Acquired hypothyroidism (ICD-10 - E03.9) tsh good 07/31/2022 Acquired hypothyroidism (ICD-10 - E03.9) 07/30/2023 Prediabetes (ICD-10 - R73.09) 04/24/2023 BMI 40.0-44.9, adult (ICD-10 - Z68.41) discussed diet 03/05/2023 Mild intermittent asthma without complication (ICD-10 - J45.20) 08/01/2022 Mild intermittent asthma without complication (ICD-10 - J45.20) has a little cough left over from his infection but is doing well 07/31/2022 Prediabetes (ICD-10 - R73.09) 07/30/2023 Elevated LDL cholesterol level (ICD-10 - E78.00) 08/01/2022 Prediabetes (ICD-10 - R73.09) a1c doing well and encouraged that he has lost 24 pounds 07/31/2022 Elevated LDL cholesterol level (ICD-10 - E78.00) 07/30/2023 Acquired hypothyroidism (ICD-10 - E03.9) 08/01/2022 Colon cancer screening (ICD-10 - Z12.11) guaiac negative 07/30/2023 Encounter for immunization (ICD-10 - Z23) 08/01/2022 Depression screen (ICD-10 - Z13.31) negative screen 08/01/2022 Encounter for screening for other viral diseases (ICD-10 - Z11.59) no covid sx's PLAN OF TREATMENT Pending Test Test Name Order Date Electrocardiogram (EKG) 05/17/2017 XR CHEST 2 VIEW PA & LAT 04/07/2021 Sleep Study - Baseline 04/11/2021 Complete Blood Count Auto Diff Comprehensive [place]. Panel Fast 3 Lipid Panel 07/30/2023 PSA,Total (Free>4and<10) 07/30/2023 TSH reflex Free T4 07/30/2023 Microalbumin, Random 07/30/2023 Hemoglobin A1c 07/30/2023 UA ClnCatch+Micro w/rflx Cult 07/30/2023 Next Appt Details Provider Name:Aston Pulido Rainegabe ier, 08/07/2023 09:30:00 AM, [address] [place] [address], [place] [address], [place], [place], [phone], Insurance Providers Payer Name Payer Address Payer Phone Subscriber Number Group Number Insured Name Patient Relationship to Insured Coverage Start Date Coverage End Date [facility] [address] [address] [place] [address] [id number] Rachel Wynn Self - patient is the insured [facility] [address] [place] [address] [id number] Rachel Wynn Self - patient is the insured MEDICAL (GENERAL) HISTORY Medical History History ICD Code had been on flovent alone with no improv ement Colonoscopy- done 12/09/[address] Natalia rodriguez - repeat 10 years
--- OUTSIDE RECORDS SUMMARY | 2023-07-30 07:57 | XMS_ITS | Patient Health Record ---
Author Name Unknown Organization [facility] Address [address] [place] [address] Care Team Providers Care Tare Weigher Name Role Phone Ruddy VILLARREAL, Aston Primary Care Provider Alhaji Evangelista Jr Unavailable [phone] ALLERGIES Allergen (clinical drug ingredient) Drug/Non Drug [...] Abnormal findings in stool (792.1) Active confirmed 445173881 Problem Rectal bleeding (569.3) Active confirmed [id number] PLAN OF TREATMENT Future Test Test Name Order Date COLONOSCOPY 10/28/2014 Insurance Providers Payer Name Payer Address Payer Phone Subscriber Number Group Number Insured Name Patient Relationship to Insured Coverage Start Date Coverage End Date [facility] [address] [place] [phone] [id number] ANNA STEIN Self - patient is the insured MEDICAL (GENERAL) HISTORY Medical History History ICD Code Denies [place],DM,CVA,renal disease asthma hypertension Surgical History Surgery Date(Month/Year) lower back surgery eye surgery
--- NOTE | 2023-07-30 08:27 | MHC.OFFVISWM ---
Intake VS Expanded 07/30/23 08:55 Height 5 ft 5 in Weight 226 lb 4 oz BMI 37.6 Body Fat % 39.8 Body Fat Mass 90.1 Fat Free Mass 136.2 Visceral Fat Rating 9 Body Water % 43.4 Body Water Mass 98.2 Basal Metabolic Rate/Score 1,705 Intake Visit Reasons: TV Follow Up SWL Allergies fexofenadine [From ENDY] Allergy (Unknown, Verified 07/30/23 08:27) RASH penicillin V Allergy (Unknown, Verified 07/30/23 08:27) rash Penicillins [PENICILLINS] Allergy (Unknown, Verified 07/30/23 08:27) RASH,THROAT CLOSING Endy Allergy (Unknown, Uncoded 07/30/23 08:27) rash Medication List - Last Reconciled 07/30/23 by Ruddy May MD albuterol sulfate 90 mcg/actuation (ProAir HFA) 2 puffs inhalation Q6H PRN amlodipine 10 mg PO DAILY 30 days fluticasone furoate-vilanterol 200-25 mcg/dose (Breo Ellipta) 1 inh inhalation DAILY hydrochlorothiazide 25 mg PO DAILY 30 days irbesartan 150 mg PO DAILY 30 days levothyroxine (Synthroid) 150 mcg PO DAILY ondansetron 4 mg PO Q6H pantoprazole 40 mg PO DAILY polyethylene glycol 3350 (Miralax) 17 grams PO DAILY sucralfate 10 mL PO BID thiamine HCl (vitamin B1) 100 mg PO DAILY HPI TV Follow Up SWL HPI Details Start time: 8.30am, End time: 9am ?I spent 25 minutes speaking with the patient on the phone plus an additional 5 minutes reviewing and updating records for a total of 30 minutes HPI Comments History of Present Illness Details Overall weight loss: 27lbs, or 10.66% TBWL Is doing two Celebrate Rebuild protein shake (1 scoop in 8oz almond milk), 2 Celebrate Perfect protein bars, and one meal (10 forks of protein and 10 forks of salad or vegetables) Exercise: is doing treadmill for 300 calories daily PFSH Medical History (Updated 07/30/23 @ 08:23 by Ruddy May MD) COPD (chronic obstructive pulmonary disease) Sleep apnea treated with continuous positive airway pressure (CPAP) Morbid obesity Asthma Obstructive sleep apnea syndrome Obesity Hypothyroidism Hypertension Surgical History History of umbilical hernia repair (~2016) History of colonoscopy (~2015) Assessment & Plan Assessment & Plan (1) Obesity: Comment: (morbid obesity) Code(s): E66.9 - Obesity, unspecified Plan: 1. Plan for lap sleeve gastrectomy including upper GI endoscopy. All tests has been completed and reviewed and the patient is cleared for the surgery. ?If diaphragmatic or ventral hernias are present at time of surgery, these will be repaired laparoscopically as well. 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 I emphasized the importance of close follow-up, adherence to instructions and good communication. So far he has proven to be an excellent communicator and very compliant with all our directions accomplishing a great weight loss. I believe that he is an excellent candidate and he is ready. 2. Preop prescriptions were provided and explained the purpose of each one. Need to be purchased preop. Start Pantoprazole when a date of surgery is set, 1 pill per day. Sucralfate and Zofran are for after surgery as needed. 3. Bowel prep: please do 7 packets ?of Miralax mixing each one with a an 8oz glass of water, crystal light, gatorade zero, or propel ?2 days before surgery and the same amount one day before surgery. Continue the protein shakes during? the bowel prep. 4. Needs to purchase 1oz medicine cups . 5. Needs to purchase Children's liquid Tylenol for postop pain control. 6. He needs to stop the Hydrochlorothiazide 2 days before the surgery date. Avoid aspirin, motrin, Advil, Aleve, Ibuprofen, Naproxyn. Tylenol is OK. 7. She needs to purchase the Celebrate 4:1 protein shakes from the hospital's gift shop. 8. Will do basic preop blood work-up any day between Sunday and Sunday of the week before the surgery date fasting for 12 hours and is scheduled to see the Anesthesiologist prior to the day of surgery. 9. Importance of adherence to postop folllow-up and recommendations was underscored and he understands that. 10. Stop food and bars as of the day you find out your surgery date and continue with 3 Celebrate Rebuild protein shakes (ONE scoop EACH in 8oz almond milk) at 6am-8am, 9am-11am and 12pm-2pm and two Celebrate Rebuild protein shakes with TWO scoops in 8oz of almond milk at 3pm-5pm and 6pm-8pm 11. No soups, broths or V8 12. The patient's?medical?history has been reviewed and they are considered low risk for post op DVT and therefore DVT prophylaxis is not considered necessary. Travel after surgery was reviewed. The patient has not disclosed any travel plans during the first 30 days after surgery and they have been advised that within the first 30 days after surgery any bus, plane, train or car travel over 2 hours in duration is contraindicated due to the possibility of developing blood clots from immobility. Any travel, needs to include periods of ambulation of 10 minutes in duration every 2 hours.? Patient was instructed to discuss any plans for travel during this period with their bariatric surgeon.? 13. Please take at the day of surgery the following medications: Amlodipine and Irbesatran. check your blood pressure daily and let me know if it is below 120/80 14. Absolutely no smoking or vaping, or marijuana until the surgery and for at least the first 4 weeks. Only nicotine patches are allowed. 15. Send me weight measurements weekly on Sundays on and the last measurements should be on the day of surgery before you go to the hospital. 16. Avoid any steroids by mouth for any reason. Let me know if someone prescribes them to you (2) BMI 37.0-37.9, adult: Code(s): Z68.37 - Body mass index [BMI] 37.0-37.9, adult Orders: Orders Comprehensive Met. Panel Today E66.9 - Obesity, unspecified, Z68.37 - Body mass index [BMI] 37.0-37.9, adult Hemoglobin A1c Today E66.9 - Obesity, unspecified, Z68.37 - Body mass index [BMI] 37.0-37.9, adult Type and Screen Today E66.9 - Obesity, unspecified, Z68.37 - Body mass index [BMI] 37.0-37.9, adult Lipid Panel Today E66.9 - Obesity, unspecified, Z68.37 - Body mass index [BMI] 37.0-37.9, adult Complete Blood Count Auto Diff Today E66.9 - Obesity, unspecified, Z68.37 - Body mass index [BMI] 37.0-37.9, adult Insulin Today E66.9 - Obesity, unspecified, Z68.37 - Body mass index [BMI] 37.0-37.9, adult TSH reflex Free T4 Today E66.9 - Obesity, unspecified, Z68.37 - Body mass index [BMI] 37.0-37.9, adult Prothrombin Time INR Today E66.9 - Obesity, unspecified, Z68.37 - Body mass index [BMI] 37.0-37.9, adult C Reactive Protein Today E66.9 - Obesity, unspecified, Z68.37 - Body mass index [BMI] 37.0-37.9, adult Partial Thromboplastin Time Today E66.9 - Obesity, unspecified, Z68.37 - Body mass index [BMI] 37.0-37.9, adult Medications: New sucralfate 10 mL PO BID 400 mL 2RF K21.9 - Gastro-esophageal reflux disease without esophagitis pantoprazole 40 mg PO DAILY 30 tabs 2RF K21.9 - Gastro-esophageal reflux disease without esophagitis ondansetron Only take one every 12 hours as needed if you have nausea 4 mg PO Q6H 20 tabs 0RF nausea and vomiting R11.0 - Nausea polyethylene glycol 3350 (Miralax) Mix each packet with 8oz of water, Crystal light, or Gatorade zero, or Propel and do 7 packets 2 days before surgery and another 7 packets one day before surgery 17 grams PO DAILY 14 ea 0RF Z01.818 - Encounter for other preprocedural examination Telehealth Telehealth Location of provider rendering services: practice address Location of patient: address on file Patient Identification confirmed using: Name, : Yes Telehealth method: voice only Patient verbally consented to treatment: Yes Patient verbally consented to billing insurance company: Yes Patient informed of any privacy concerns related to visit: Yes Minutes spent on Phone/Video with Pt.: 30 Coding Level of Care Code Tele Est Pt Level 4 (96649) Diagnoses Obesity E66.9 BMI 37.0-37.9, adult Z68.37 Time Spent (min) 30
[2023-07-30 08:55] VITALS: BMI 37.6
== END 2023-07-30 09:06 | disposition home or self-care (01) ==
LOC: HO.HBS 07:55
PROVIDERS: PCP Internal Medicine; Visit Provider Surgery
DX: E66.9 Obesity, unspecified (principal); Z68.37 Body mass index [BMI] 37.0-37.9, adult
CPT/HCPCS: 99214

== ENCOUNTER → 2023-07-30 07:55 | Outpatient (BNVA) | payer OTHER, SELFPAY | PROVIDERS: PCP Internal Medicine; Visit Provider Surgery ==

== ENCOUNTER 2023-07-30 10:55 | Outpatient (REF) | payer OTHER, SELFPAY ==
[2023-07-30 11:00] LABS: MANUAL DIFF FLAG NO
[2023-07-30 11:06] LABS: Basophils Absolute Auto 0.1 X10*3/uL (0.0-0.2); Basophils Percent Auto 1.4 % (0-2); Eosinophils Absolute Auto 0.2 X10*3/uL (0.0-0.4); Eosinophils Percent Auto 3.2 % (0-4); Hematocrit 44.4 % (42.0-52.0); Imm Gran Abs Auto 0.02 X10*3/uL (0.00-0.03); Imm Gran Pct Auto 0.3 % (0.0-0.4); Lymphocytes Absolute Auto 1.3 X10*3/uL (1.2-4.9); Lymphocytes Percent Auto 20.4 % (20-40); Mean Corpuscular HGB Conc 33.8 g/dl (31.0-36.0); Mean Corpuscular Hemoglobin 30.4 pg (27.0-33.0); Mean Corpuscular Volume 89.9 fL (80.0-98.0); Monocytes Absolute Auto 0.6 X10*3/uL (0.1-1.2); Monocytes Percent Auto 9.4 % (2-11); Neutrophils Absolute Auto 4.1 x10*3/uL (2.0-8.3); Neutrophils Percent Auto 65.3 % (45-73); Platelet Count 248 X10*3/uL (160-400); Red Blood Count 4.94 X10*6/uL (4.60-5.80); Red Cell Distribution Width 12.9 % (11.0-16.0); White Blood Count 6.3 X10*3/uL (4.8-10.8)
[2023-07-30 11:07] LABS: Appearance Urine Clear; Color Urine Yellow; Glucose Urine UA Negative (Negative); Leukocyte Esterase Urine Negative (Negative); Nitrite Urine Negative (Negative); Specific Gravity - Urine 1.015 (1.005-1.025); Urine Blood Negative (Negative); Urine Ketones Negative (Negative); Urine Protein Negative (Neg-Trace)
[2023-07-30 11:09] LABS: Bacteria Urine None Seen (None Seen); Hyaline Casts Urine 0-2 /LPF (0-2); RBC Urine 0-2 /HPF (0-2); Squamous Epithelial Cell Urine 0-2 /HPF (0-2); WBC Urine 0-5 /HPF (0-5)
[2023-07-30 11:24] LABS: Estimated Average Glucose 97 mg/dL
[2023-07-30 11:25] LABS: Alanine Aminotransferase 18 U/L (0-40); Albumin Level 4.3 g/dL (3.5-5.0); Alkaline Phosphatase 55 U/L (39-117); Anion Gap 12 (12-20); Aspartate Amino Transferase 15 U/L (5-37); Bilirubin Total 0.9 mg/dL (0.0-1.0); Blood Urea Nitrogen 17 mg/dL (9-16); Calcium 9.5 mg/dL (8.4-10.2); Carbon Dioxide 27 mmol/L (22-29); Chloride 105 mmol/L (96-108); Cholesterol 158 mg/dL (<200); Estimated Glomerular Filt Rate > 60; Glucose Fasting 102 mg/dL (60-99); HDL Cholesterol 39 mg/dL (>40); LDL Cholesterol Calculated 101 mg/dL (<100); Potassium 3.5 mmol/L (3.3-5.1); Sodium 140 mmol/L (135-145); Total Protein 7.1 g/dL (6.5-8.0); Triglycerides 94 mg/dL (<150)
[2023-07-30 11:38] LABS: PSA,Total (Free>4and<10) 1.19 ng/mL (0.00-4.00)
[2023-07-30 12:25] LABS: Creatinine Urine 60.72 mg/dL; Microalbum/Creatinine Ratio Ur 36.2 ug/mg cr (<30)
== END 2023-07-30 10:56 | disposition home or self-care (01) ==
LOC: HO.LNP 10:55
PROVIDERS: Visit Provider Internal Medicine
DX: Z00.00 Encounter for general adult medical examination without abnormal findings (principal); I10 Essential (primary) hypertension; R73.03 Prediabetes; E78.00 Pure hypercholesterolemia, unspecified
CPT/HCPCS: 80053; 80061; 81001; 82043; 82570; 83036; 84153; 84443; 85025

== ENCOUNTER 2023-08-01 06:25 | Outpatient (REF) | payer OTHER, SELFPAY ==
[2023-08-01 06:40] LABS: MANUAL DIFF FLAG NO
[2023-08-01 06:58] LABS: Basophils Absolute Auto 0.1 X10*3/uL (0.0-0.2); Basophils Percent Auto 0.9 % (0-2); Eosinophils Absolute Auto 0.3 X10*3/uL (0.0-0.4); Eosinophils Percent Auto 4.1 % (0-4); Hematocrit 45.6 % (42.0-52.0); Hemoglobin 15.3 g/dl (14.0-18.0); Imm Gran Abs Auto 0.02 X10*3/uL (0.00-0.03); Imm Gran Pct Auto 0.3 % (0.0-0.4); Lymphocytes Absolute Auto 1.2 X10*3/uL (1.2-4.9); Lymphocytes Percent Auto 18.8 % (20-40); Mean Corpuscular HGB Conc 33.6 g/dl (31.0-36.0); Mean Corpuscular Volume 89.4 fL (80.0-98.0); Mean Platelet Volume 10.8 fL (9.4-12.4); Monocytes Absolute Auto 0.6 X10*3/uL (0.1-1.2); Monocytes Percent Auto 8.9 % (2-11); Neutrophils Absolute Auto 4.4 x10*3/uL (2.0-8.3); Platelet Count 236 X10*3/uL (160-400); Red Cell Distribution Width 12.7 % (11.0-16.0); White Blood Count 6.6 X10*3/uL (4.8-10.8)
[2023-08-01 07:04] LABS: Prothrombin Time 12.6 SEC (11.1-13.3)
[2023-08-01 07:06] LABS: Estimated Average Glucose 94 mg/dL; Hemoglobin A1c % 4.9 % (<6.0)
[2023-08-01 07:07] LABS: Partial Thromboplastin Time 32.7 SEC (26.0-36.4)
[2023-08-01 07:19] LABS: Alanine Aminotransferase 19 U/L (0-40); Albumin Level 4.4 g/dL (3.5-5.0); Alkaline Phosphatase 62 U/L (39-117); Anion Gap 13 (12-20); Aspartate Amino Transferase 16 U/L (5-37); Bilirubin Total 1.2 mg/dL (0.0-1.0); Blood Urea Nitrogen 19 mg/dL (9-16); C Reactive Protein 0.88 mg/dL (< or = 0.50); Calcium 9.9 mg/dL (8.4-10.2); Carbon Dioxide 27 mmol/L (22-29); Chloride 104 mmol/L (96-108); Cholesterol 168 mg/dL (<200); Estimated Glomerular Filt Rate > 60; Glucose Random 92 mg/dL (60-115); HDL Cholesterol 40 mg/dL (>40); LDL Cholesterol Calculated 117 mg/dL (<100); Potassium 3.4 mmol/L (3.3-5.1); Sodium 141 mmol/L (135-145); Total Protein 7.2 g/dL (6.5-8.0); Triglycerides 59 mg/dL (<150)
[2023-08-01 07:36] LABS: Insulin 8 uU/mL (2-29)
== END 2023-08-01 06:26 | disposition home or self-care (01) ==
LOC: HO.LAB 06:25
PROVIDERS: PCP Internal Medicine; Visit Provider Surgery
DX: E66.9 Obesity, unspecified (principal); Z68.37 Body mass index [BMI] 37.0-37.9, adult
CPT/HCPCS: 36415; 80053; 80061; 83036; 83525; 84443; 85025; 85610; 85730; 86140; 86850; 86900; 86901

== ENCOUNTER 2023-08-07 06:18 | Inpatient (IN) | payer OTHER, SELFPAY ==
[2023-08-02 11:07] VITALS: BMI 36.6
--- NOTE | 2023-08-03 20:37 | MHC.SHP ---
Pre-Procedural Eval Section A Date of Service: 08/03/23 The patient is an INPATIENT: Yes The History & Physical has been completed within 30 days and I have reviewed it.: Yes Section B Chief Complaint: Morbid (severe) obesity due to excess calories Relevant Family History (Specify if Yes): No Relevant Social History: None Present Medications: None Medical History: No relevant PMH History of Previous Operations: No relevant previous surgery Allergies: Allergies Allergy/AdvReac Type Severity Reaction Status Date / Time Penicillins [PENICILLINS] Allergy Severe RASH,THROAT Verified 08/02/23 10:36 CLOSING fexofenadine [From ENDY] Allergy Intermediate RASH Verified 08/02/23 10:36 Review of Systems Sugical H&P ROS: Negative: Constitution, Cardiovascular, Respiratory, Neurological, Psychiatric, Hem-Onc, Allergic/Immunologic, Gastrointestinal, Genitourinary, Musculoskeletal, Integumentary, Endocrine and Eyes/Ears/Nose/Throat Exam Surgical H&P Exam: Normal: HEENT, Normal: Heart, Normal: Lungs, Normal: Extremities, Normal: Abdomen, Normal: Skin and Normal: Neurological Plan Diagnosis/Plan: Unchanged I have reviewed the history and physical and performed a pertinent physical examination on my patient. No changes have occurred unless specified. Time Spent With Patient Time: Total time managing care of this patient today ____ minutes.
--- NOTE | 2023-08-06 08:17 | HO.ANESPROP2 ---
Documented by User: Tashia Ceron NP 08/06/23 08:19 HPI - Anesthesia Eval Consult details Narrative: 53yo M for Gastrectomy Sleeve-EGD, possible diaphragmatic hernia, possible ventral hernia, possible open PMFSH Active Problems Active Problems: All Active Problems (Updated 08/02/23 @ 11:06 by Jesi Calhoun RN) BMI 37.0-37.9, adult (Acute) Adjustment disorder, unspecified (Acute) Abnormal EKG (Acute) Vitamin B1 deficiency (Acute) Prediabetes (Acute) Neurogenic pain (Acute) Obstructive sleep apnea syndrome (Acute) Ribs, multiple fractures (Acute ~2020) COPD (chronic obstructive pulmonary disease) (Acute) Sleep apnea treated with continuous positive airway pressure (CPAP) (Acute) Morbid obesity (Acute) Asthma (Acute) Obesity (Acute) Hypothyroidism (Acute) Hypertension (Acute) Past Medical History Medical History COPD (chronic obstructive pulmonary disease) Sleep apnea treated with continuous positive airway pressure (CPAP) Morbid obesity Asthma Obesity Hypothyroidism Hypertension Surgical History Surgical History Hx of eye surgery Hx of resection of rib History of umbilical hernia repair (~2015) History of colonoscopy (~2014) Social History Social History Are you a primary intensive care anaesthetist to a significant other at home: No Do you presently have visiting nurse or other home services: No Patient Tobacco Use Status: Never used Tobacco Use of substances other than those prescribed or required for medical reasons: No Have you been hit, kicked, punched, or otherwise hurt by someone within the past year? If so, by whom?: No Are you DNR?: No Advance Directives Information Provided: Yes (as above noted-will bring copy DOS) Advance Directives on File: No Recently lost weight without trying: No Eating poorly because of decreased appetite: No Nutrition Risks: No Nutritional Risk Poor oral hygiene: No Meds Allergies Allergy/AdvReac Type Severity Reaction Status Date / Time Penicillins [PENICILLINS] Allergy Severe RASH,THROAT Verified 08/02/23 10:36 CLOSING fexofenadine [From ENDY] Allergy Intermediate RASH Verified 08/02/23 10:36 Home Medications Medication Instructions Recorded Confirmed Last Taken Type albuterol sulfate 90 mcg/actuation 2 puff inhalation Q6H PRN 06/10/21 08/02/23 06/07/23 History aerosol inhaler (ProAir HFA) Shortness Of Breath Or Wheezing fluticasone furoate 200 1 inh inhalation DAILY 06/10/21 08/02/23 08/07/23 History mcg-vilanterol 25 mcg/dose inhalation powder (Breo Ellipta) levothyroxine 150 mcg tablet 150 mcg PO DAILY 06/10/21 08/02/23 08/07/23 History (Synthroid) irbesartan 150 1 tab PO DAILY 08/07/23 08/07/23 Unknown History mg-hydrochlorothiazide 12.5 mg tablet Exam Exam Date and Time: August 06, 2023 0817 Height,Weight and Vital Signs: Height 5 ft 5 in Weight 99.7 kg Pertinent Lab Results Pertinent Lab Results: Laboratory Tests 08/01/23 06:35 Blood Type A Positive Antibody Screen NEGATIVE Laboratory Tests 08/01/23 06:39 WBC 6.6 Hgb 15.3 Hct 45.6 Plt Count 236 Sodium 141 Potassium 3.4 Chloride 104 Carbon Dioxide 27 BUN 19 H Creatinine 0.81 Narrative Narrative: EKG 05/2023 Vent. Rate : 065 BPM Atrial Rate : 065 BPM P-R Int : 162 ms QRS Dur : 090 ms QT Int : 400 ms P-R-T Axes : 048 063 055 degrees QTc Int : 416 ms Normal sinus rhythm with sinus arrhythmia Septal infarct , age undetermined Abnormal ECG No previous ECGs available ECHO 06/2023 Conclusions: - The left ventricular systolic function is normal. The calculated ejection fraction is 59% by biplane method. - No obvious valvular pathology seen on this study. Exercise Stress 06/2023 Protocol: XAVIER Max HR: 148 BPM 88% of Pred: 168 BPM Max BP: 142/074 mmHG Max Work Load: 9.3 METS Exercise stress test with exercise 7 min 31 sec of Xavier protocol, achieving 88% MPHR, 9.3 METs, without anginal symptoms, with isolated PVCs, with normotensive response to exercise, without EKG changes meeting criteria for ischemia. Nuclear images pending. Test reviewed with Dr Tapia. Assessment and Plan Assessment Anesthesia Assessment: Chart Reviewed Documented by User: Chris Brown MD 08/07/23 09:52 [facility] Past Medical History Medical History COPD (chronic obstructive pulmonary disease) Sleep apnea treated with continuous positive airway pressure (CPAP) Morbid obesity Asthma Obesity Hypothyroidism Hypertension Family History Family history of problems with anesthesia: No Surgical History Surgical History Hx of eye surgery Hx of resection of rib History of umbilical hernia repair (~2015) History of colonoscopy (~2014) History of Problems with Anesthesia: No Social History Social History Are you a primary intensive care anaesthetist to a significant other at home: No Do you presently have visiting nurse or other home services: No Patient Tobacco Use Status: Never used Tobacco Use of substances other than those prescribed or required for medical reasons: No Have you been hit, kicked, punched, or otherwise hurt by someone within the past year? If so, by whom?: No Are you DNR?: No Advance Directives Information Provided: Yes (as above noted-will bring copy DOS) Advance Directives on File: No Recently lost weight without trying: No Eating poorly because of decreased appetite: No Nutrition Risks: No Nutritional Risk Poor oral hygiene: No Meds Allergies Allergy/AdvReac Type Severity Reaction Status Date / Time Penicillins [PENICILLINS] Allergy Severe RASH,THROAT Verified 08/02/23 10:36 CLOSING fexofenadine [From ENDY] Allergy Intermediate RASH Verified 08/02/23 10:36 Home Medications Medication Instructions Recorded Confirmed Last Taken Type albuterol sulfate 90 mcg/actuation 2 puff inhalation Q6H PRN 06/10/21 08/02/23 06/07/23 History aerosol inhaler (ProAir HFA) Shortness Of Breath Or Wheezing fluticasone furoate 200 1 inh inhalation DAILY 06/10/21 08/02/23 08/07/23 History mcg-vilanterol 25 mcg/dose inhalation powder (Breo Ellipta) levothyroxine 150 mcg tablet 150 mcg PO DAILY 06/10/21 08/02/23 08/07/23 History (Synthroid) irbesartan 150 1 tab PO DAILY 08/07/23 08/07/23 Unknown History mg-hydrochlorothiazide 12.5 mg tablet Exam Airway Mallampati Class: III TM Dist: >3cm Neck ROM: Full Loose/Missing/Broken Teeth: No Heart: [id number] Lungs: cta b/l Assessment and Plan Assessment Anesthesia Assessment: Anesthesia Plan Discussed Final Anesthetic Review Family History of Problems with Anesthesia: No History of Problems with Anesthesia: No NPO: Yes ASA Class: II Final Preanesthetic Review: No Changes in Pt Med Stat, Meds/Allgs Chart Reviewed, Consent Obtained/Reviewed and Anes Risks/Benef Reviewed Patient Risk: Intermediate Procedure Risk: Intermediate Assessment/Block/Sedation in SS: Assess/Block/Sedation-SS Anesthetic Plan Anesthetic Plan: GA and Agree w/ Assess. and Plan Disposition: Standard PACU
[2023-08-07] VITALS (15 sets, daily range): BP systolic 121–155; BP diastolic 66–93; PULSE 65–91; RESP 16–20; TEMP 36.2–37.1; O2SAT 96–100
--- OUTSIDE RECORDS SUMMARY | 2023-08-07 06:23 | XMS_ITS | Patient Health Record ---
Author Name Unknown Organization Aston Fox MD Address [address] [place], [place] [id number] Care Team Providers Care [employer] Professor Name Role Phone Aston Fox Primary Care Provider [phone] ALLERGIES Allergen (clinical drug ingredient) Drug/Non Drug Allergy documented on EMR Reaction Allergy Type Onset Date Status Joceline (uncoded) rash Allergy Ac tive Penicillin (uncoded) rash Allergy Active RESULTS Component Value Reference Range Notes Hemoglobin A1c Reviewed date:02/06/2023 02:41:09 PM Interpretation: Performing Lab: Notes/Report: Value Hemoglobin A1c 5.5 Glucose, finger stick Reviewed date:02/06/2023 02:34:37 PM Interpretation: Performing Lab: Notes/Report: Value 91 Glucose, finger stick Reviewed date:04/24/2023 10:00:05 AM Interpretation: Performing Lab: Notes/Report: Value 113 XR ribs LT min 3V w CXR1V Reviewed date:05/04/2023 09:43:29 AM Interpretation: Performing Lab: Notes/Report: [address] [address] XRay Report Signed Patient: Rachel Wynn MR#: [id number] 159 : 1970 Acct:[id number] Age/Sex: 52 / M ADM Date: 04/24/23 Loc: NIC Attending Dr: Aston Fox MD Ordering Physician: Aston Fox MD Date of Service: 04/24/23 Procedure(s): XR ribs LT min 3V w CXR1V Accession Number(s): [id number] cc: Aston Fox MD EXAMINATION: XR RIBS, [...] by Preston Plata MD in OV> 05/01/23 3160 DD/ 1115 TD/TT: Talent Acquisition Relationship Manager: Complete Blood Count Auto Di ff Reviewed date:06/11/2023 12:25:07 PM Interpretation: Performing Lab:[facility], [address] [place] [phone] Notes/Report: White Blood Count 7.5 4.8-10.8 X10*3/uL [...] Panel Reviewed date:06/11/2023 10:48:59 AM Interpretation: Performing Lab:[facility], [address] [place] [phone] Notes/Report: Sodium 138 135-145 mmol/L Potassium 3.5 3.3-5.1 mmol/L Chloride 102 96-108 mmol/L Carbon Dioxide 27 22-29 mmol/L Anion Gap 13 12-20 Blood Urea Nitrogen 17 9-16 mg/dL Creatinine 0.82 0.5-1.4 mg/dL Estimated Glomerular Filt Rate > 60 NOTE: For -Iranian individuals, multiply the result by 1.210. Chronic [...] PROFILE Reviewed date:06/11/2023 09:55:23 AM Interpretation: Performing Lab:[facility], [address] [place] [phone] Notes/Report: Iron 147 45-160 mcg/dL Total Iron Binding Capacity 325 228-428 mcg/d L Percent Iron Saturation 45 15-50 % Unsaturated Iron Binding 178 Ferritin Reviewed date:06/11/2023 09:55:31 AM Interpretation: Performing Lab:[facility], [address] [place] [phone] Notes/Report: Ferritin 258 20-250 ng/mL C Reactive Protein Reviewed date:06/11/2023 09:55:07 AM Interpretation: Performing Lab:[facility], [address] [place] [phone] Notes/Report: C Reactive Protein 0.45 < or = 0.50 mg/dL Lipid Panel Reviewed date:06/11/2023 09:55:15 AM Interpretation: Performing Lab:[facility], [address] [place] [phone] Notes/Report: Triglycerides 102 <150 mg/dL Desirable Triglyceride: [...] Folate Reviewed date:06/11/2023 09:28:24 AM Interpretation: Performing Lab:[facility], [address] [place] [phone] Notes/Report: Vitamin B12 476 200-900 pg/mL NORMAL 200-900 PG/ML INDETERMINATE 160-199 PG/ML DEFICIENT < 160 PG/ML Folate 13.0 > or = 4.0 ng/mL Reference Values: > or = 4.0 ng/mL < 4.0 ng/mL suggests folate deficiency Methotrexate, aminopterin and folinic acid (leucovorin) are chemotherapeutic agents whose molecular structures are similar to folate; therefore, the [employer]der folate assay cannot be used for patients using these drugs. Vitamin A Reviewed date:06/17/2023 06:39:19 PM Interpretation: Performing Lab:[facility], [address] [place] [phone] Notes/Report: Vitamin A 62 38-98 mcg/dL Vitamin supplementation within 24 hours prior to blood draw may affect the accuracy of the results. This test was developed and its analytical performance characteristics have been determined by [employer] [place], [place]. It has not been cleared or approved by the U.S. Food and Drug Administration. This assay has been validated pursuant to the CLIA regulations and is used for clinical purposes. THIS TEST WAS PERFORMED AT: [employer] [address] MATTHEW MANDEL MD,PHD Vitamin B1 Reviewed date:06/17/2023 06:38:18 PM Interpretation: Performing Lab:[facility], [address] [place] [phone] Notes/Report: Vitamin B1 7 8-30 nmol/L Vitamin supplementation within 24 hours prior to blood draw may affect the accuracy of the results. This test was developed and its analytical performance characteristics have been determined by [employer] [place]. It has not been cleared or approved by the U.S. Food and Drug Administration. This assay has been validated pursuant to the CLIA regulations and is used for clinical purposes. THIS TEST WAS PERFORMED AT: [employer]/[address] MATTHEW MANDEL MD,PHD Vitamin D 25-OH Total Reviewed date:06/11/2023 10:48:05 AM Interpretation: Performing Lab:[facility], [address] [place] [phone] Notes/Report: Vitamin D 25-OH Total 42.2 >30 [...] T4 Reviewed date:06/11/2023 09:55:51 AM Interpretation: Performing Lab:[address] [phone] Notes/Report: TSH reflex Free T4 1.83 0.32-4.0 uIU/mL PTHI Reviewed date:06/12/2023 04:18:19 PM Interpretation: Performing Lab:[address] [address] Notes/Report: PTHI 29 16-77 pg/mL Interpretive Guide Intact PTH Calcium ------- Normal Parathyroid Normal Normal Hypoparathyroidism Low or Low Normal Low Hyperparathyroidism Primary Normal or High High Secondary High Normal or Low Tertiary High High Non-Parathyroid Hypercalcemia Low or Low Normal High Calcium (PTHI) 9.8 8.6-10.3 mg/dL THIS TEST WAS PERFORMED AT: [employer] [address] [place] [phone] FLOR BETANCOURT MD Zinc Reviewed date:06/15/2023 08:35:47 AM Interpretation: Performing Lab:[address] [address] Notes/Report: Zinc 76 60-130 mcg/dL This test was developed and its analytical performance characteristics have been determined by [employer] [place]. It has not been cleared or approved by the U.S. Food and Drug Administration. This assay has been validated pursuant to the CLIA regulations and is used for clinical purposes. THIS TEST WAS PERFORMED AT: [employer] [address] [place] [address] MATTHEW MANDEL MD,PHD Hemoglobin A1c Reviewed date:06/11/2023 09:29:00 AM Interpretation: Performing Lab:[address] [address] Notes/Report: Hemoglobin A1c % 5.1 <6.0 % [...] average glucose, using the formula of the K0Z-Xivhags Average Glucose study (ADAG), Diabetes Care, Vol.31,#8, 2007 Insulin Reviewed date:06/11/2023 09:28:37 AM Interpretation: Performing Lab:[facility], [address] [place] [phone] Notes/Report: Insulin 11 2-29 uU/mL This test [...] date:06/12/2023 12:08:20 PM Interpretation: Performing Lab: Notes/Report: [address] [address] XRay Report Signed Patient: Rachel Wynn MR#: [id number] 159 : 1970 Acct:[id number] Age/Sex: 53 / M ADM Date: 06/11/23 Loc: HO.LAB Attending Dr: Ruddy May MD Ordering Physician: Ruddy May MD Date of Service: 06/11/23 Procedure(s): XR chest 2V Accession Number(s): [id number] cc: Aston Fox MD; Ruddy May MD [...] in OV> 06/12/23 1009 DD/ 0741 TD/TT: Talent Acquisition Relationship Manager: H Pylori Breath Test Reviewed date:06/17/2023 06:38:27 PM Interpretation: Performing Lab:[facility], [address] [place] [phone] Notes/Report: H Pylori Breath Test Negative Negative Antimicrobials, proton pump inhibitors and bismuth preparations are known to suppress H. pylori. Ingesting these medications within two weeks prior to performing the breath test may produce negative test results. A positive result is still clinically valid. US abdomen comp w elastograp hy Reviewed date:07/03/2023 09:06:31 AM Interpretation: Performing Lab: Notes/Report: [address] [place] [address] Ultrasound Report Signed Patient: Rachel Wynn MR#: [id number] 159 : 1970 Acct:[id number] Age/Sex: 53 / M ADM Date: 06/28/23 Loc: HO.US Attending Dr: Ruddy May MD Ordering Physician: Ruddy Mya MD Date of Service: 06/28/23 Procedure(s): US abdomen comp w elastography Accession Number(s): [id number] cc: Aston Fox MD; Ruddy May MD [...] in OV> 07/02/23 1650 DD/ 1040 TD/TT: Talent Acquisition Relationship Manager: ROSSANA FL upper GI w air Reviewed date:07/03/2023 11:36:02 AM Interpretation: Performing Lab: Notes/Report: [address] [address] Fluoroscopy Report Signed Patient: Rachel Wynn MR#: [id number] 159 : 1970 Acct:[id number] Age/Sex: 53 / M ADM Date: 07/03/23 Loc: HO.XRAY Attending Dr: Ruddy May MD Ordering Physician: Ruddy May MD Date of Service: 07/03/23 Procedure(s): FL upper GI w air Accession Number(s): [id number] cc: Aston Fox MD; Ruddy May MD [...] in OV> 07/03/23 1126 DD/ 1020 TD/TT: Talent Acquisition Relationship Manager: EMIL jono perf SPECT rest & str Reviewed date:07/24/2023 05:00:39 PM Interpretation: Performing Lab: Notes/Report: [address] [address] Nuclear Medicine Report Signed Patient: Rachel Wynn MR#: [id number] 159 : 1970 Acct:[id number] Age/Sex: 53 / M ADM Date: 07/23/23 Loc: KATY Attending Dr: Ruddy May MD Ordering Physician: Ruddy May MD Date of Service: 07/23/23 Procedure(s): NM jono perf SPECT rest str Accession Number(s): [id number] cc: Aston Fox MD; Ruddy May MD [...] in OV> 07/24/23 1547 DD/ 0830 TD/TT: Talent Acquisition Relationship Manager: Complete Blood Count Auto Di ff Reviewed date:07/30/2023 12:26:25 PM Interpretation: Performing Lab:[facility], [address] [place] [phone] Notes/Report: White Blood Count 6.3 4.8-10.8 X10*3/uL Red Blood Count 4.94 4.60-5.80 X10*6/uL Hemoglobin 15.0 14.0-18.0 g/dl Hematocrit 44.4 42.0-52.0 % Mean Corpuscular Volume 89.9 80.0-98.0 fL Mean Corpuscular Hemoglobin 30.4 27.0-33.0 pg Mean Corpuscular HGB Conc 33.8 31.0-36.0 g/dl Red Cell Distribution Width 12.9 11.0-16.0 % Platelet Count 248 160-400 X10*3/uL Mean Platelet Volume 12.0 9.4-12.4 fL Neutrophils Percent Auto 65.3 45-73 % Imm Gran Pct Auto 0.3 0.0-0.4 % Lymphocytes Percent Auto 20.4 20-40 % Monocytes Percent Auto 9.4 2-11 % Eosinophils Percent Auto 3.2 0-4 % Basophils Percent Auto 1.4 0-2 % NRBC Pct Auto 0.0 0.0-0.2 /100WBC Neutrophils Absolute Auto 4.1 2.0-8.3 x10*3/u L Imm Gran Abs Auto 0.02 0.00-0.03 X10*3/uL Lymphocytes Absolute Auto 1.3 1.2-4.9 X10*3/u L Monocytes Absolute Auto 0.6 0.1-1.2 X10*3/uL Eosinophils Absolute Auto 0.2 0.0-0.4 X10*3/u L Basophils Absolute Auto 0.1 0.0-0.2 X10*3/uL NRBC Abs Auto 0.000 0.0-0.012 X10*3/uL Comprehensive M[place]. Panel Fa st Reviewed date:07/30/2023 12:25:16 PM Interpretation: Performing Lab:[facility], [address] [place] [phone] Notes/Report: Sodium 140 135-145 mmol/L Potassium 3.5 3.3-5.1 mmol/L Chloride 105 96-108 mmol/L Carbon Dioxide 27 22-29 mmol/L Anion Gap 12 12-20 Blood Urea Nitrogen 17 9-16 mg/dL Creatinine 0.76 0.5-1.4 mg/dL Estimated Glomerular Filt Rate > 60 NOTE: For -Iranian individuals, multiply the result by 1.210. Chronic Kidney Disease: Estimated GFR < 60 mL/min/1.73m2 Severe Kidney Disease: Estimated GFR < 15 mL/min/1.73m2 Glucose Fasting 102 60-99 mg/dL A fasting glucose from 100-125 mg/dl is considered impaired (pre-diabetes). Calcium 9.5 8.4-10.2 mg/dL Bilirubin Total 0.9 0.0-1.0 mg/dL Aspartate Amino Transferase 15 5-37 U/L Alanine Aminotransferase 18 0-40 U/L Total Protein 7.1 6.5-8.0 g/dL Albumin Level 4.3 3.5-5.0 g/dL Alkaline Phosphatase 55 39-117 U/L Lipid Panel Reviewed date:07/30/2023 12:21:08 PM Interpretation: Performing Lab:[facility], [address] [place] [phone] Notes/Report: Triglycerides 94 <150 mg/dL Desirable Triglyceride: less than 150 mg/dL Borderline High Triglyceride 150-199 mg/dL High Triglyceride: 200-499 mg/dL Very High Triglyceride: greater than or equal to 5OO mg/dL Cholesterol 158 <200 mg/dL Desirable Cholesterol: less than 200 mg/dL Borderline High Cholesterol: 200-239 mg/dL High Cholesterol: greater than 239 mg/dL LDL Cholesterol Calculated 101 <100 mg/dL Desirable LDL: less than 100 mg/dL Near Optimal/Above Optimal LDL: 110-129 mg/dL Borderline High LDL: 130-159 mg/dL High LDL: 160-189 mg/dL Very High LDL: greater than or equal to 190 mg/dL HDL Cholesterol 39 >40 mg/dL Desirable HDL: greater than 40 mg/dL Note: This HDL assay may give artificially low results in patients with liver disease. PSA,Total (Free>4and<10) Reviewed date:07/30/2023 12:20:44 PM Interpretation: Performing Lab:[facility], [address] [place] [phone] Notes/Report: PSA,Total (Free>4and<10) 1.19 0.00-4.00 ng/mL A Free PSA was not [...] 4.0 and 10.0 ng/mL. PSA methodology: Benz Alinity i Chemiluminescent Microparticle Immunoassay (CMIA) TSH reflex Free T4 Reviewed date:07/30/2023 12:20:03 PM Interpretation: Performing Lab:[facility], [address] [place] [phone] Notes/Report: TSH reflex Free T4 1.00 0.32-4.0 uIU/mL Microalbumin, Random Reviewed date:07/30/2023 12:28:14 PM Interpretation: Performing Lab:[facility], [address] [place] [phone] Notes/Report: Creatinine Urine 60.72 Microalbumin Urine 22.0 Microalbum/Creatinine Ratio Ur 36.2 <30 ug/mg cr Albumin/Creatinine Ratio Reference Ranges: Normal: < 30 ug/mg creatinine Microalbuminuria: 30 - 300 ug/mg creatinine Clinical Albuminuria: > 300 ug/mg creatinine Hemoglobin A1c Reviewed date:07/30/2023 12:20:35 PM Interpretation: Performing Lab:[facility], [address] [place] [phone] Notes/Report: Hemoglobin A1c % 5.0 <6.0 % Hemoglobin A1C Reference Range Adults: 4.8 - 6.0 % Non diabetic: < 6.0 % Goal: < 7.0 % Additional Action Suggested: > 8.0 % Note: Hemoglobin A1c results are invalid for patients with abnormal amounts of HbF. Blood transfusions may impact the HbA1c concentration in the patient sample. Estimated Average Glucose 97 eAG = Estimated average glucose which is %A1C expressed as average glucose, using the formula of the T1Y-Yytozku Average Glucose study (ADAG), Diabetes Care, Vol.31,#8, Apr. 2007 UA ClnCatch+Micro w/rflx Cul t Reviewed date:07/30/2023 12:33:22 PM Interpretation: Performing Lab:[facility], [address] [place] [phone] Notes/Report: [id number] Urine, Clean Catch Color Urine Yellow Appearance Urine Clear PH 7.0 5.0-9.0 Glucose Urine UA Negative Negative mg/dL Urine Blood Negative Negative Specific [place] - Urine 1.015 1.005-1.025 Urine Protein Negative Neg-Trace mg/dL Urine Ketones Negative Negative mg/dL Nitrite Urine Negative Negative Leukocyte Esterase Urine Negative Negative RBC Urine 0-2 0-2 /HPF WBC Urine 0-5 0-5 /HPF Squamous Epithelial Cell Urine 0-2 0-2 /HPF Bacteria Urine None Seen None Seen Hyaline Casts Urine 0-2 0-2 /LPF Complete Blood Count Auto Di ff Reviewed date:08/01/2023 07:51:09 AM Interpretation: Performing Lab:[address] [phone] Notes/Report: White Blood Count 6.6 4.8-10.8 X10*3/uL Red Blood Count 5.10 4.60-5.80 X10*6/uL Hemoglobin 15.3 14.0-18.0 g/dl Hematocrit 45.6 42.0-52.0 % Mean Corpuscular Volume 89.4 80.0-98.0 fL Mean Corpuscular Hemoglobin 30.0 27.0-33.0 pg Mean Corpuscular HGB Conc 33.6 31.0-36.0 g/dl Red Cell Distribution Width 12.7 11.0-16.0 % Platelet Count 236 160-400 X10*3/uL Mean Platelet Volume 10.8 9.4-12.4 fL Neutrophils Percent Auto 67.0 45-73 % Imm Gran Pct Auto 0.3 0.0-0.4 % Lymphocytes Percent Auto 18.8 20-40 % Monocytes Percent Auto 8.9 2-11 % Eosinophils Percent Auto 4.1 0-4 % Basophils Percent Auto 0.9 0-2 % NRBC Pct Auto 0.0 0.0-0.2 /100WBC Neutrophils Absolute Auto 4.4 2.0-8.3 x10*3/u L Imm Gran Abs Auto 0.02 0.00-0.03 X10*3/uL Lymphocytes Absolute Auto 1.2 1.2-4.9 X10*3/u L Monocytes Absolute Auto 0.6 0.1-1.2 X10*3/uL Eosinophils Absolute Auto 0.3 0.0-0.4 X10*3/u L Basophils Absolute Auto 0.1 0.0-0.2 X10*3/uL NRBC Abs Auto 0.000 0.0-0.012 X10*3/uL Prothrombin Time INR Reviewed date:08/01/2023 07:51:09 AM Interpretation: Performing Lab:[facility], [address] [place] [phone] Notes/Report: Prothrombin Time 12.6 11.1-13.3 SEC INTERNATIONAL NORM RATIO 1.0 0.9-1.1 INTERNATIONAL NORMALIZED RATIO (INR) REFERENCE RANGES Reference Range For patients not on anticoagulant therapy: 0.9 - 1.1 INR ranges for oral anticoagulant therapy: For prevention and treatment of venous thrombosis and pulmonary embolism: 2.0 - 3.0 For acute myocardial infarction with aspirin therapy: 2.0 - 3.0 For acute myocardial infarction without aspirin therapy: 3.0 - 4.0 For patients with mechanical prosthetic heart valves: 2.5 - 3.5 Partial Thromboplastin Time Reviewed date:08/01/2023 07:50:20 AM Interpretation: Performing Lab:[address] [phone] Notes/Report: Partial Thromboplastin Time 32.7 26.0-36.4 SEC Comprehensive Met. Panel Reviewed date:08/01/2023 07:51:09 AM Interpretation: Performing Lab:[address] [address] Notes/Report: Sodium 141 135-145 mmol/L Potassium 3.4 3.3-5.1 mmol/L Chloride 104 96-108 mmol/L Carbon Dioxide 27 22-29 mmol/L Anion Gap 13 12-20 Blood Urea Nitrogen 19 9-16 mg/dL Creatinine 0.81 0.5-1.4 mg/dL Estimated Glomerular Filt Rate > 60 NOTE: For -Iranian individuals, multiply the result by 1.210. Chronic Kidney Disease: Estimated GFR < 60 mL/min/1.73m2 Severe Kidney Disease: Estimated GFR < 15 mL/min/1.73m2 Glucose Random 92 60-115 mg/dL Calcium 9.9 8.4-10.2 mg/dL Bilirubin Total 1.2 0.0-1.0 mg/dL Aspartate Amino Transferase 16 5-37 U/L Alanine Aminotransferase 19 0-40 U/L Total Protein 7.2 6.5-8.0 g/dL Albumin Level 4.4 3.5-5.0 g/dL Alkaline Phosphatase 62 39-117 U/L C Reactive Protein Reviewed date:08/01/2023 07:51:09 AM Interpretation: Performing Lab:[address], [place] [address] Notes/Report: C Reactive Protein 0.88 < or = 0.50 mg/dL Lipid Panel Reviewed date:08/01/2023 07:51:09 AM Interpretation: Performing Lab:[address] [address] Notes/Report: Triglycerides 59 <150 mg/dL Desirable Triglyceride: less than 150 mg/dL Borderline High Triglyceride 150-199 mg/dL High Triglyceride: 200-499 mg/dL Very High Triglyceride: greater than or equal to 5OO mg/dL Cholesterol 168 <200 mg/dL Desirable Cholesterol: less than 200 mg/dL Borderline High Cholesterol: 200-239 mg/dL High Cholesterol: greater than 239 mg/dL LDL Cholesterol Calculated 117 <100 mg/dL Desirable LDL: less than 100 mg/dL Near Optimal/Above Optimal LDL: 110-129 mg/dL Borderline High LDL: 130-159 mg/dL High LDL: 160-189 mg/dL Very High LDL: greater than or equal to 190 mg/dL HDL Cholesterol 40 >40 mg/dL Desirable HDL: greater than 40 mg/dL Note: This HDL assay may give artificially low results in patients with liver disease. TSH reflex Free T4 Reviewed date:08/01/2023 07:51:09 AM Interpretation: Performing Lab:[facility], [address] [place] [phone] Notes/Report: TSH reflex Free T4 1.70 0.32-4.0 uIU/mL Hemoglobin A1c Reviewed date:08/01/2023 07:51:10 AM Interpretation: Performing Lab:[facility], [address] [place] [phone] Notes/Report: Hemoglobin A1c % 4.9 <6.0 % Hemoglobin A1C Reference Range Adults: 4.8 - 6.0 % Non diabetic: < 6.0 % Goal: < 7.0 % Additional Action Suggested: > 8.0 % Note: Hemoglobin A1c results are invalid for patients with abnormal amounts of HbF. Blood transfusions may impact the HbA1c concentration in the patient sample. Estimated Average Glucose 94 eAG = Estimated average glucose which is %A1C expressed as average glucose, using the formula of the M7P-Siwwcnz Average Glucose study (ADAG), Diabetes Care, Vol.31,#8, Apr. 2007 Type and Screen Reviewed date:08/02/2023 12:29:33 PM Interpretation: Performing Lab:[facility], [address] [place] [phone] Notes/Report: WITNESSED BY MARY NURSING: Call Blood Bank (ext. [phone]) to band patient on admission. Type and Screen in effect until 2300 on 08/07/23 Blood Type AP Antibody Screen NEGATIVE Insulin Reviewed date:08/01/2023 07:51:10 AM Interpretation: Performing Lab:[facility], [address] [place] [phone] Notes/Report: Insulin 8 2-29 uU/mL This test was performed using the Benz chemiluminescent method. Values obtained from different assay methods cannot be used interchangeably. This insulin assay shows a possible cross-reactivity with antibodies generated against insulin (immunoreactive insulin and some patients treated with bovine or porcine insulin). Insulin levels may be measured lower in patients with insulin autoimmune syndrome or familial high pro-insulinemia. REASON FOR REFERRAL Reason Bariatric surgery Diagnosis 1 Obesity due to exces s calories, unspecified obesity severity (E66.09) Diagnosis 2 Body mass index (BMI ) of 40.0-44.9 in adult (Z68.41) Referral Organization Aston Fox MD Referring Provider First Name Aston Referring Provider Last Name Ruddy Referring Provider Speciality Internal M edicine Referred Provider Ruddy May Referred Provider Specialty Bariatric [facility] General Notes Catia Sewell 11:14:21 AM EDT > info faxed phone [phone], Catia Sewell 2023 03:31:57 PM EDT > [...] Notes Problem Reflux esophagitis (K21.00) Active confirmed 753044944 Problem Gynecomastia, male (N62) Active confirmed 4799572 Problem Essential hypertension (I10) Active confirmed 90011387 Problem Acquired hypothyroidism (E03.9) Active confirmed 361334945 Problem Mild intermittent asthma without complication (J45.20) Active confirmed 590321363 Problem Prediabetes (R73.09) Active confirmed 5816250 Problem Migraine with aura and without status migrainosus, not intractable (G43.109) Active confirmed 6350980 Problem Obstructive sleep apnea (G47.33) Active confirmed Obstructive sleep apnea (62054655) Problem Elevated LDL cholesterol level (E78.00) Active confirmed 632161740 Problem SHANE (obstructive sleep apnea) (G47.33) Active confirmed 21366830 Problem BMI 40.0-44.9, adult (Z68.41) Active confirmed Body mass index 40+ - morbidly obese (360445572) Problem Closed fracture of multiple ribs of [...] Aston Fox MD [address] [place] [id number] 07/30/2023 Aston Fox Blood tests for routine general physical examination Z00.00 ; Essential hypertension I10 ; Prediabetes R73.09 ; Encounter for immunization Z23 ; Elevated LDL cholesterol level E78.00 and Acquired hypothyroidism E03.9 Aston Fox MD [address] [place] [address] [id number] 02/06/2023 Aston Fox Prediabetes R73.09 Aston Fox MD [address] [place] [address] [id number] 04/24/2023 Aston Fox Prediabetes R73.09 ; Closed fracture of multiple ribs of left side with delayed healing, subsequent encounter S22.42XG and BMI 40.0-44.9, adult Z68.41 Aston Fox MD [address] [place] [address] [id number] 06/11/2023 Aston Fox Nasal congestion R09.81 and BMI 40.0-44.9, adult Z68.41 Aston Fox MD [address] [place] [address] [id number] 01/19/2023 Aston Fox Acquired hypothyroidism E03.9 Aston Fox MD [address] [place] [address] [id number] 03/05/2023 Aston Fox Essential hypertensi on I10 and Mild intermittent asthma without complication J45.20 Aston Fox MD [address] [place] [address] [id number] 03/29/2023 Aston Fox MD [address] [place] [address] [id number] 04/10/2023 Aston Fox MD [address] [place] [address] [id number] 05/08/2023 Aston Fox Mild intermittent asthma without complication J45.20 Aston Fox MD [address] [place] [address] [id number] 05/08/2023 Aston Fox MD [address] [place] [address] [id number] 05/24/2023 Aston Fox MD [address] [place] [address] [id number] 06/12/2023 Aston Fox MD [address] [place] [address] [id number] 07/10/2023 Aston Fox Essential hypertensi on I10 Aston Fox MD [address] [place] [address] [id number] 09/08/2022 Aston Fox COVID-19 U07.1 Aston Fox MD [address] [place] [address] [id number] 05/01/2023 Aston Fox Mild intermittent asthma without complication J45.20 and Bronchitis J40 Aston Fox MD [address] [place] [address] [id number] 05/02/2023 Aston Fox ASSESSMENTS Encounter Date Diagnosis Assessment Notes Treatment Notes Treatment Clinical Notes 07/30/2023 Essential hypertension (ICD-10 - I10) 07/30/2023 [...] of medications side effects, interactions and warnings. 07/30/2023 Prediabetes (ICD-10 - R73.09) 04/24/2023 BMI 40.0-44.9, adult (ICD-10 - Z68.41) discussed diet 03/05/2023 Mild intermittent asthma without complication (ICD-10 - J45.20) 07/30/2023 Encounter for immunization (ICD-10 - Z23) 07/30/2023 Elevated LDL cholesterol level (ICD-10 - E78.00) 07/30/2023 Acquired hypothyroidism (ICD-10 - E03.9) PLAN OF TREATMENT Pending Test Test Name Order Date Electrocardiogram (EKG) 05/17/2017 XR CHEST 2 VIEW PA & LAT 04/07/2021 Sleep Study - Baseline 04/11/2021 Next Appt Details Provider Name:Aston ordoñez, 10/05/2023 08:30:00 AM, [address] [place] [address], [address], [place], [place], [id number], Insurance Providers Payer Name Payer Address Payer Phone Subscriber Number Group Number Insured Name Patient Relationship to Insured Coverage Start Date Coverage End Date [facility] [address] [address] [place] [phone] [id number] Rachel Wynn Self - patient is the insured [facility] [address] [place] [address] [id number] KingsleyRachel Self - patient is the insured MEDICAL (GENERAL) HISTORY Medical History History ICD Code had been on flovent alone with no improv ement Colonoscopy- done 12/09/[address] Natalia rodriguez - repeat 10 years
--- OUTSIDE RECORDS SUMMARY | 2023-08-07 06:23 | XMS_ITS | Patient Health Record ---
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 Name Role Phone Ruddy VILLARREAL, Aston Primary Care Provider Alhaji Evangelista Jr Unavailable ALLERGIES Allergen (clinical drug ingredient) Drug/Non Drug [...] Abnormal findings in stool (792.1) Active confirmed [id number] Problem Rectal bleeding (569.3) Active confirmed [id number] PLAN OF TREATMENT Future Test Test Name Order Date COLONOSCOPY 10/28/2014 Insurance Providers Payer Name Payer Address Payer Phone Subscriber Number Group Number Insured Name Patient Relationship to Insured Coverage Start Date Coverage End Date [facility] [address] [place] [phone] [id number] ANNA STEIN Self - patient is the insured MEDICAL (GENERAL) HISTORY Medical History History ICD Code Denies [place],DM,CVA,renal disease asthma hypertension Surgical History Surgery Date(Month/Year) lower back surgery eye surgery
[2023-08-07] MEDS: Lactated Ringers 1,000 ML 999 ML IV (06:30)
[2023-08-07] MEDS: Aprepitant 32 MG/4.4 ML VIAL IVPUSH (06:47)
--- NOTE | 2023-08-07 07:24 | PHA.MEDREC ---
Pharmacy Consult ? Medication Reconciliation Pharmacy has reviewed the medication reconciliation.
--- NOTE | 2023-08-07 07:35 | PM.OP ---
Brief Operative Note Date of Service: 08/07/23 Pre-op diagnosis: Severe obesity with comorbidities (see below) Post-op diagnosis: same Procedure: INITIAL PATIENT BMI ON PRESENTATION AT OUR OFFICE: 42.2 kg/m2 LAST BMI BEFORE SURGERY: 37,7 kg/m2 COMORBIDITIES: sleep apnea on CPAP, asthma, hypertension, hypothyroidism, prediabetes, GERD, hiatal hernia, liver fibrosis ?The patient presented to the Weight Management Program with significant obesity that was negatively impacting the patient's comorbidities as listed above.? The program is a phased program with a special focus on preoperative medical weight management to promote substantial weight loss and prepare the patients for the second phase of the program: bariatric surgery. The patient participated in an intensive weekly lifestyle ?intervention and exercise program during which the patient ?has lost between the initial office visit and the last preoperative visit 27 lbs, or 10.66% of initial actual body weight. It was deemed appropriate for the patient to now have bariatric surgery. In light of the current Covid-19 pandemic and the well documented strong association of obesity and increased risk of worse outcomes if infected with Covid-19 (REFERENCES:https://pubmed.ncbi.nlm.nih.gov/99704822/,?https://pubmed.ncbi.nlm.nih.gov/22621568/), any delay in undergoing bariatric surgery may lead to the patient's worsening health condition and increased?risk of more severe Covid-19 disease if infected. In addition a recent?study from [facility] published in [employer] on 09/19/2021 ([email or web address]) found that, among patients with obesity, substantial weight loss achieved with surgery was associated with improved outcomes of COVID-19 infection. The findings suggest that obesity can be a modifiable risk factor for the severity of COVID-19 infection. In addition, the patient met the BMI-criteria for bariatric surgery based on the BMI on initial presentation. The patient should not be penalized for achieving such weight loss because ?it is not sustainable long-term without surgical intervention and it was achieved in preparation for bariatric surgery ?under my direction and based on my published research ([email or web address]).pdf and?https://www.soard.org/article/[email or web address](21)20030-X/pdf) ?that a 10% preoperative weight loss improves long-term weight loss after surgery and reduces perioperative complications.? Insurance carriers such as [facility] have endorsed my recommendations ?and have included in their policies criteria to include a 10% preoperative weight loss requirement. PROCEDURE: Esophago-gastroscopy,laparoscopic sleeve gastrectomy and laparoscopic gastropexy INDICATIONS: This is a 53 year-old male who was electively scheduled for laparoscopic, possibly open sleeve gastrectomy. The risks and complications of the procedure were discussed with the patient in advance, particularly the possibility of ; pulmonary embolism; staple line leak; bleeding; GERD; cardiac, pulmonary, or renal complications; as well as long-term problems such as insufficient weight loss, vitamin deficiency, strictures, or ulcers. The patient understood all the risks, and was in agreement to proceed with surgery. DESCRIPTION OF PROCEDURE: After informed consent was obtained from the patient, the patient was given preoperative antibiotics, and was transferred to the operating room. After successful induction of general anesthesia, pneumatic compression devices were placed on both lower extremities. An upper endoscopy was performed next. The oropharynx and esophagus appeared to be within normal limits. There was no significant diaphragmatic hernia present consistent with the findings of the preoperative upper GI. The stomach was entered. Then after all fluid and air were suctioned and the stomach was fully decompressed, the scope was withdrawn and secured in the mid esophagus. The patient was then prepped and draped in the usual sterile manner, and abdominal access was established at the right upper quadrant with the Mark technique. A 12 mm blunt port was inserted, and the abdomen was insufflated with CO2 to a pressure of 15 mmHg. Under direct visualization, additional ports were placed, specifically two 5 mm Versi-step ports to the left upper quadrant, and a 5 mm Versi-Step port to the right upper quadrant. 1% lidocaine plain was used to infiltrate all port sites as well as all fascia defects. There was a single adhesion in the abdomen involving the omentum and the anterior abdominal wall. This was lysed completely with the ultrasonic device. Following that, the patient was placed in a steep reverse Trendelenburg position. An additional 5 mm port was placed to the right flank for the Mediflex retractor that was used to retract the left lobe of the liver. The gastro-esophageal fat pad was opened with the ultrasonic device (Thunderbeat, Olympus) and the anterior esophagus and hiatus were exposed. The angle of His was opened with the ultrasonic device the fundus of the stomach from any diaphragmatic and splenic attachments. I then opened the gastrocolic ligament between the transverse colon and the greater curvature of the stomach with the ultrasonic device to enter the lesser sac and facilitate the ligation of the short gastric vessels. I started at a mid-point along the greater curvature and using the Thunderbeat, all short gastric vessels were divided all the way to the angle of His until the left karime was completely dissected at its entirety. I then divided the gastro-colic ligament distally to a distance of about 3-4 cm proximal to the pylorus. The stomach was then divided transversely with three Endo ALDEN-45 purple and three ALDEN-60 articulating purple loads using the VitrinepixNIA stapler and loads. Every effort was made that the gastric sleeve had a tubular shape and an even caliber throughout. Once the sleeve resection was completed, the staple line of the gastric sleeve was reinforced with Hemoclips. The resected stomach was retrieved without difficulty from the Mark port. A gastropexy was then performed in order to prevent postoperative GERD and partial gastric volvulus. Several interrupted 2.0 Surgidac sutures were placed between the sleeve's staple line and the previously divided greater omentum and gastro-colic ligament using the Endo-Stitch device. ?An upper endoscopy was performed. There was no narrowing at the GE junction. The scope was easily advanced all the way to the pylorus which was clearly visualized. There was no narrowing anywhere and the sleeve's caliber was even throughout. The sleeve's staple line was inspected and there was no evidence of ischemia, bleeding or dehiscence. At that point the gastroscope was withdrawn from the patient?s mouth while we were decompressing the bowel and the stomach from any remaining air. I looked into the lesser sac to see how the sleeve was situating and it was situating well. There was no bleeding from the staple line, spleen, or short gastric vessels. The Mediflex retractor was removed, and the undersurface of the liver was inspected and there was no bleeding. The patient was placed in supine position. I closed the fascial defect of the 12 mm port site with a figure of eight #1 Polysorb suture. Then 30cc Ropivacaine plain with 10 mg of Dexamethasone were used to infiltrate the fascial closure as well as all skin incisions. A total of 5ml Zynrelef was applied in the Mark wound. At this point, the abdomen was deflated, all ports were removed under direct vision, and no bleeding was noted from any of the port sites. The skin incisions were irrigated with saline and were closed with 4-0 absorbable monofilament sutures. Steri-Strips and OpSites were used to cover all incisions. The patient was extubated and was transferred in stable condition to the recovery room for further care. I was present and performed all gonzales parts of the procedure. Chepe was the assistant front desk manager. There were no residents to assist with this case. Alejo May MD, PhD, FACS Surgeon: Ruddy May MD Anesthesia: GETA, local and other (TAP block and 5ml Zynrelef) Was an Yarn Wrapper used for this Procedure?: No Yarn Wrapper: Nay Mo Estimated blood loss (mL): 10 IV fluids (mL): 2,500 Urine output (mL): 0 (No Licea to record output) Pathology: other (Stomach) Condition: stable Disposition: PACU
--- NOTE | 2023-08-07 07:38 | P.PNGS_ITS ---
Subjective Subjective Date of Service: 08/08/23 Interval history: Feels well. Mild incisional pain. He is tolerating phase 1 bariatric diet Physical Exam 2 Vital Signs: Vital Signs: Last Vital Signs Temp 98.7 F 08/07/23 06:29 Pulse 65 08/07/23 06:29 Resp 16 08/07/23 06:29 BP 125/71 08/07/23 06:29 Pulse Ox 96 08/07/23 06:29 O2 Del Method Room Air 08/07/23 06:29 BMI result Body Mass Index 36.6 GI: Inspection: Yes normal to inspection, Yes incision (clean, dry and intact) and Yes obesity Palpation (GI): Soft to palpation Extrem: Right lower extremity: normal to inspection (no calf tenderness) L eft lower extremity: normal to inspection (no calf tenderness) Objective Data Active Medications Albuterol Sulfate (Albuterol Sulfate (0.083%) 2.5 Mg/3 Ml Vial.Neb) 2.5 mg INHALE ONCE PRN PRN Reason: Shortness of Breath/Wheezing Lactated Ringer's (Lr) 1,000 mls @ 100 mls/hr IVCONT .Q10H HEIKE Lactated Ringer's (Lr) 1,000 mls @ 999 mls/hr IV .Q1H1M HEIKE Stop: 08/07/23 08:30 Last Admin: 08/07/23 06:30 Dose: 999 mls/hr Documented By: DB Labs 08/08/23 05:13 08/08/23 05:13 Procedures Date of Service Date of Service: 08/08/23 Progress Note: A&P Assessment and plan (1) Obesity: Status: Acute Assessment and Plan: s/p laparoscopic sleeve gastrectomy and gastropexy Doing well Will check am labs and if OK the patient will be discharged home (2) BMI 37.0-37.9, adult: Status: Acute (3) Hypertension: Status: Acute (4) Hypothyroidism: Status: Acute (5) Asthma: Status: Acute (6) Sleep apnea treated with continuous positive airway pressure (CPAP): Status: Acute (7) Prediabetes: Status: Acute (8) Liver fibrosis: Status: Acute (9) GERD (gastroesophageal reflux disease): Status: Acute (10) Diaphragmatic hernia: Status: Acute (11) S/P laparoscopic sleeve gastrectomy: Status: Acute (12) Intra-abdominal adhesions: Status: Acute Time Spent With Patient Time: Total time managing care of this patient today ____ minutes. Quality Stroke Does the patient have a stroke diagnosis?: No VTE Prior VTE?: No VTE Risk Level:: Surgical - moderate VTE Device Contraindication: N/A - Device Ordered VTE Drug Contraindication: Treatment Not Indicated
--- NOTE | 2023-08-07 09:51 | P.DS_ITS ---
DS: Providers Provider Date of Service: 08/08/23 Date of admission: 08/07/23 06:18 Primary care physician: Aston Fox MD DS: Diagnosis Discharge Diagnosis (1) Obesity: Status: Acute (2) BMI 37.0-37.9, adult: Status: Acute (3) Hypertension: Status: Acute (4) Hypothyroidism: Status: Acute (5) Asthma: Status: Acute (6) Sleep apnea treated with continuous positive airway pressure (CPAP): Status: Acute (7) Prediabetes: Status: Acute (8) Liver fibrosis: Status: Acute (9) GERD (gastroesophageal reflux disease): Status: Acute (10) Diaphragmatic hernia: Status: Acute DS: Summary Hospital Course Hospital Course: ADMITTING DIAGNOSIS: morbid obesity, OS, HTN, Hypothyroidism, COPD, asthma DISCHARGE DIAGNOSIS: same, s/p laparoscopic sleeve gastrectomy PAST SURGICAL HISTORY: umbillical hernia repair, colonoscopy PROCEDURE: upper endoscopy, laparoscopic sleeve gastrectomy and repair of diaphragmatic hernia hernia DISCHARGE SUMMARY: History of Present Illness: The patient is a 53 year-old woman with a BMI of 42.1 kg/m2 and associated co- morbidities as described above. The patient had extensive work-up, lost 27 lbs preoperatively and was electively scheduled for laparoscopic, possible open sleeve gastrectomy and gastropexy. Risks and complications of the surgery were discussed with the patient in advance, particularly the possibility of , pulmonary embolism, anastomotic leak, bleeding, bowel injury, GERD, cardiac, renal or pulmonary complications. The patient understood all the risks and was in agreement with the surgical plan. Hospital Course: The patient underwent an uneventful laparoscopic sleeve gastrectomy with gastropexy on the day of admission. Postoperatively, the patient was transferred to the surgical floor. The patient received IV Acetaminophen and IV dilaudid for pain control. Patient was started on bariatric phase 1 diet POD #0. On p ostoperative day one, the patient was feeling well without nausea, vomiting, fevers, or tachycardia. The patient had some mild incisional pain and the abdomen was soft. On the morning of postoperative day one, the patient was continued on 1 ounce of water or ice every half hour. During the day, the patient did fairly well, having some incisional pain, but able to ambulate adequately and to tolerate liquids well. Since the patient is doing well, we decided that the patient was ready to be discharged. The patient was given instructions to follow-up with me next week and to call my office for any fever over 101, persistent abdominal pain, nausea, vomiting, GERD, symptoms of DVT such as calf tenderness, or leg swelling, or pulmonary embolism such as chest pain or shortness of breath. The patient was also instructed to drink 40-60 ounces of liquids per day using the 1-ounce cups. The patient had been given prescriptions for Tylenol for pain, Zofran prn for nausea, and pantoprazole and carafate previously. The patient was encouraged to ambulate and use the incentive spirometer. The patient was allowed to shower, but no baths, and encouraged to stay active at home. All of these instructions were given to the patient personally. All questions were answered and the patient understood all instructions, the instructions were also given to the patient in print. Time Attestation Discharge coordination time: Less than 30 minutes Quality: Safe Use of Opioids Does Pt have an Active Cancer Diagnosis on the Problem List?: No Quality: Stroke Does the patient have a stroke diagnosis?: No Physical Exam Vital Signs: Vital Signs: Last Vital Signs Temp 98.7 F 08/07/23 06:29 Pulse 65 08/07/23 06:29 Resp 16 08/07/23 06:29 BP 125/71 08/07/23 06:29 Pulse Ox 96 08/07/23 06:29 O2 Del Method Room Air 08/07/23 06:29 BMI result Body Mass Index 36.6 DS: Data Data Completed and Pending Pending studies at discharge: Pending at discharge 08/07/23 09:06 Surgical [PTH] Routine Discharge Plan Discharge Anticipated Discharge Date/Time: 08/08/23 10:48 Patient Disposition: Home, Self-Care Discharge Diagnosis: s/p sleeve gastrectomy Referrals: Aston Fox MD [Primary Care Provider] - 1 Week Discharge Medications: Continued amlodipine 10 mg tablet 10 mg PO DAILY 30 Days Qty: 30 0RF levothyroxine [Synthroid] 150 mcg tablet 150 mcg PO DAILY Breo Ellipta 200-25 mcg/dose blister with device 1 inh inhalation DAILY pantoprazole 40 mg tablet,delayed release (DR/EC) 40 mg PO DAILY Qty: 30 2RF sucralfate 100 mg/mL suspension 10 ml PO BID Qty: 400 2RF ondansetron 4 mg tablet,disintegrating 4 mg PO Q6H Qty: 20 0RF Rx Instructions: Only take one every 12 hours as needed if you have nausea Held irbesartan-hydrochlorothiazide 150-12.5 mg tablet 1 tab PO DAILY Hold Instructions: Resume on 08/09/23. Check your blood pressure every evening and send it to Dr. May. Do not take the medication before you hear from Dr. May. Do not take the medication if your blood pressure is below 120/70 mmHg. albuterol sulfate [ProAir HFA] 90 mcg/actuation HFA aerosol inhaler 2 puff inhalation Q6H PRN (Reason: Shortness Of Breath Or Wheezing) Hold Instructions: Resume on 08/09/23. Check your blood pressure every evening and send it to Dr. May. Do not take the medication before you hear from Dr. May. Do not take the medication if your blood pressure is below 120/70 mmHg. Discontinued thiamine HCl (vitamin B1) 100 mg tablet 100 mg PO DAILY Qty: 90 1RF Discharge Orders: Discharge Order (Routine); Ordered 08/08/23 Ordered By: Thomas Clifton Activity on Discharge: No heavy lifting Stand Alone Forms: Patient Portal Discharge page Care Plan Goals: weight loss Health Concerns: obesity Plan of Treatment: No tub baths, sex or returning to work until discussed at first post op appointment. No exercise, alcohol, tobacco or illegal drug use. Continue to use incentive spirometer hourly while awake. Walk in home for 5- 10 minutes every 2 hours during the first week. Continue phase 1 diet today and start phase 2 diet tomorrow morning. Follow all instructions in the bariatric handbook and call with any questions. 1. Please call your doctor or come back to the emergency room should any new symptoms arise. 2. You will receive a courtesy call from [facility] 24-48 hours after discharge. 3. Activity: abstain from alcohol, practice limited stair climbing, no bending, no driving, no exercise, no illicit substances, no lifting, no sex, no tub bath, no work. 4. Diet: continue as discussed with bariatric team.. 5. Dressing Change/Wound Care: Do not change or remove surgical dressings unless they are wet or soiled. 6. Call your doctor if: - Your temperature exceeds 101.5 F - You experience excessive pain or swelling - You have an unexpected reaction to medication - You have excessive bleeding - You experience continued vomiting/nausea - Your incision begins to separate - Your incision shows signs of infection such as increased redness, swelling, excessive pain, heat, or drainage (light blood or clear fluid is normal) 7. General instructions: No lifting greater than 5 lbs for 1 week and not more than 20lbs the next 3?weeks. No driving until seen at the office in 5-7 days after surgery. If you do not move your bowels in the next 2 days, please tell?Dr. May. Please walk around your home every hour or two to prevent blood clots from forming in your legs. You do not need to wake from sleeping to walk. Please sleep in a bed or couch to prevent kinking at the hips and knees. Please take your incentive spirometer (your lung educator senior clinical) home with you and use it for the next few days to prevent pneumonia. You may shower, no hot tubs, baths or swimming pools.?Please follow the post op diet instructions you are?given by Dr Carlo post? and text me daily at 5-6pm for an update.?If you have any issues or concerns or questions please communicate this to him via text.? The Celebrate shakes have all of the bariatric vitamins you need if you consume these shakes. If you are drinking other protein shakes, you will need to purchase the Celebrate multivitamins and calcium that are available in the hospital gift shop on the first floor of the main hospital.??Do not take anything without first discussing with Dr May. Please make sure you are consuming at least 40 ounces of fluids per day starting the?day AFTER your discharge from the hospital. Always drink 1-2 ml per minute using the 5ml?syringe. If you drink faster you may experience?bloating,?gas pain, burping, nausea or heartburn. In that case please slow down your pace and use the syringe to?understand better the?proper?pace and volume of drinking. Do not hesitate to contact the office with any questions at . The patient's medical history has been reviewed and they are considered low risk for post op DVT and therefore DVT prophylaxis is not considered necessary. Travel after surgery was reviewed. The patient has not disclosed any travel plans during the first 30 days after surgery and they have been advised that within the first 30 days after surgery any bus, plane, train or car travel over 2 hours in duration is contraindicated due to the possibility of developing blood clots from immobility. Any travel, needs to include periods of ambulation of 10 minutes in duration every 2 hours. The patient was instructed to discuss any plans for travel during this period with their bariatric surgeon. Assessment: stable, post op sleeve gastrectomy Discharge Date/Time: 08/08/23 09:17
[2023-08-07] MEDS: fentaNYL citrate/PF 100 MCG/2 ML VIAL 50 MCG IVPUSH (10:27)
[2023-08-07 10:49] LABS: Hematocrit 42.7 % (42.0-52.0); Hemoglobin 14.6 g/dl (14.0-18.0)
[2023-08-07 11:04] LABS: Anion Gap 16 (12-20); Blood Urea Nitrogen 14 mg/dL (9-16); Calcium 9.2 mg/dL (8.4-10.2); Carbon Dioxide 24 mmol/L (22-29); Chloride 104 mmol/L (96-108); Creatinine Clr Calc Pharmacy 111.7; Estimated Glomerular Filt Rate > 60; Glucose Random 131 mg/dL (60-115); Potassium 3.6 mmol/L (3.3-5.1); Sodium 140 mmol/L (135-145)
[2023-08-07] MEDS: Acetaminophen 1,000 MG/100 ML PIGGYBACK 16.7 MG IV ×3 (11:55→23:11)
[2023-08-07] MEDS: Famotidine/PF 20 MG/2 ML VIAL IVPUSH ×2 (11:55→20:03)
[2023-08-07] MEDS: Lactated Ringers 1,000 ML 100 ML IVCONT ×2 (11:59→21:43)
[2023-08-07 16:22] LABS: Glucose, Whole Blood 125 mg/dL (60-115)
[2023-08-07] MEDS: 0.9 % Sodium Chloride Flush 3 ML SYRINGE IVFLUSH (20:03)
[2023-08-08 03:44] VITALS: BP 154/86; PULSE 77; RESP 18; TEMP 37.1; O2SAT 96
[2023-08-08] MEDS: Acetaminophen 1,000 MG/100 ML PIGGYBACK 16.7 MG IV (05:07)
[2023-08-08] MEDS: Levothyroxine Sodium 150 MCG TABLET PO (05:07)
[2023-08-08 05:42] LABS: MANUAL DIFF FLAG NO
[2023-08-08 05:49] LABS: Hematocrit 39.7 % (42.0-52.0); Hemoglobin 13.9 g/dl (14.0-18.0); Imm Gran Abs Auto 0.02 X10*3/uL (0.00-0.03); Imm Gran Pct Auto 0.3 % (0.0-0.4); Lymphocytes Absolute Auto 0.7 X10*3/uL (1.2-4.9); Lymphocytes Percent Auto 10.3 % (20-40); Mean Corpuscular Hemoglobin 30.3 pg (27.0-33.0); Mean Corpuscular Volume 86.7 fL (80.0-98.0); Mean Platelet Volume 11.6 fL (9.4-12.4); Monocytes Absolute Auto 0.5 X10*3/uL (0.1-1.2); Monocytes Percent Auto 7.9 % (2-11); Neutrophils Absolute Auto 5.2 x10*3/uL (2.0-8.3); Neutrophils Percent Auto 81.5 % (45-73); Platelet Count 236 X10*3/uL (160-400); Red Blood Count 4.58 X10*6/uL (4.60-5.80); White Blood Count 6.3 X10*3/uL (4.8-10.8)
[2023-08-08 06:03] LABS: Anion Gap 16 (12-20); Blood Urea Nitrogen 12 mg/dL (9-16); Calcium 9.2 mg/dL (8.4-10.2); Carbon Dioxide 24 mmol/L (22-29); Chloride 103 mmol/L (96-108); Creatinine Clr Calc Pharmacy 130.3; Estimated Glomerular Filt Rate > 60; Glucose Random 108 mg/dL (60-115); Potassium 3.6 mmol/L (3.3-5.1); Sodium 139 mmol/L (135-145)
[2023-08-08 07:42] VITALS: BP 158/87; PULSE 78; RESP 16; TEMP 36.6; O2SAT 97
[2023-08-08] MEDS: Fluticasone/Vilanterol 200/25 BLST.W.DEV 1 PUFF INHALE (07:53)
[2023-08-08] MEDS: Famotidine/PF 20 MG/2 ML VIAL IVPUSH (08:15)
[2023-08-08] MEDS: amLODIPine Besylate 10 MG TABLET PO (08:15)
--- NOTE | 2023-08-08 09:24 | MHC.CM.PN ---
Opened chart to review for Pt interview; noticed D/C order (home, self-care). Inquired from unit staff and informed that Pt has already left. CM acknowledged.
--- NOTE | 2023-08-09 06:41 | HO.POSTANES ---
Post Anesthesia Evaluation Post Anesthesia Evaluation Date of Service: 08/08/23 Vital Signs: Patient seen at 800am on 08/08/23 Vitals: 158/87, 78, 16, 97.8F, 97%RA Anesthesia: General Endotracheal-GETA Mental Status: Awake Pain Control: Satisfactory Nausea/Vomiting: None Hydration: Adequate Anesthesia-Related Issues: No Anes. Related Issues
== END 2023-08-08 09:17 | disposition home or self-care (01) | DRG 403 ==
LOC: HO.SSSA 06:21 → HO.S3 09:47
PROVIDERS: Physician Assistant; Admitting Provider Surgery; PCP Internal Medicine; Visit Provider Surgery
PROC: 0DB64Z3 Excision of Stomach, Percutaneous Endoscopic Approach, Vertical (ICD-10-PCS; CPT 43845; principal; 2023-08-07 07:30)
DX: E66.01 Morbid (severe) obesity due to excess calories (principal); J84.10 Pulmonary fibrosis, unspecified; E03.9 Hypothyroidism, unspecified; Z68.37 Body mass index [BMI] 37.0-37.9, adult; G47.30 Sleep apnea, unspecified; I10 Essential (primary) hypertension; R73.03 Prediabetes; J45.909 Unspecified asthma, uncomplicated; Z79.51 Long term (current) use of inhaled steroids; Z79.890 Hormone replacement therapy; Z79.899 Other long term (current) drug therapy
CPT/HCPCS: 36415; 80048; 82947; 85014; 85018; 85025; 86850; 86900; 86901; 88304; 88305; 88307; 88342; A4649; C9088; C9145; J0131; J1100; J1170; J1956; J2250; J2405; J2550; J2704; J2795; J3010; J7120

== ENCOUNTER → 2023-08-07 06:18 | Outpatient (BNV) | payer OTHER, SELFPAY | PROVIDERS: Admitting Provider Surgery; PCP Internal Medicine; Visit Provider Surgery | DX: E66.9 Obesity, unspecified (principal); Z68.37 Body mass index [BMI] 37.0-37.9, adult; Z90.3 Acquired absence of stomach [part of]; Z98.84 Bariatric surgery status | CPT/HCPCS: 43659; 43775; 99024 ==

== ENCOUNTER 2023-08-14 09:32 | Outpatient (AMB) | payer OTHER, SELFPAY ==
--- NOTE | 2023-08-14 10:05 | A.OFFVIS_ITS ---
Intake VS Expanded 08/14/23 10:30 BP 116/67 Blood Pressure Location Rt brachial Blood Pressure Position Sitting Pulse 76 Pulse Source Pulse Oximeter Temp 97.7 F Temperature Source Temporal Artery Scan Pulse Oximetry 95 Oxygen Delivery Method Room Air Height 5 ft 5 in Weight 207 lb 9.6 oz BMI 34.5 Body Fat % 31.1 Body Fat Mass 64.6 Fat Free Mass 142.8 Visceral Fat Rating 17.0 Body Water % 50.1 Body Water Mass 50.1 Muscle Mass/Score 135.8 Basal Metabolic Rate/Score 1,916 Intake Visit Reasons: (OV) 7 Days PO LSG 08/07/23 Allergies Penicillins [PENICILLINS] Allergy (Severe, Verified 08/14/23 10:25) RASH,THROAT CLOSING fexofenadine [From ENDY] Allergy (Intermediate, Verified 08/14/23 10:25) RASH Medication List - Last Reconciled 08/14/23 by Nay Mo PA-C albuterol sulfate 90 mcg/actuation (ProAir HFA) 2 puffs inhalation Q6H PRN amlodipine 5 mg PO DAILY fluticasone furoate-vilanterol 200-25 mcg/dose (Breo Ellipta) 1 inh inhalation DAILY irbesartan-hydrochlorothiazide 150-12.5 mg 1 tab PO DAILY levothyroxine (Synthroid) 150 mcg PO DAILY pantoprazole 40 mg PO DAILY sucralfate 10 mL PO BID HPI HPI Comments History of Present Illness Details 53 yo man now 7 d s/p LSG with Dr Matos, no c/o n/v/ abd pain or reflux. [employer] weight of 253.4 lbs, TBWL is 45.8 lbs or 18%. Feeling lightheaded daily. Takes half amlodipine, and combined med in am. SBP in evenings - 137, does not check in mornings. Meal plan per Dr Matos: 4 shakes per day - 1 scoop each with 8 o z UAM at 6am/10am/4 pm and 6pm - over 2 hours each. Water 40 oz's per day. Exercise per Dr Matos: taylor 300 calories daily at gym. Pt states that he will be flying to [place] on Sep 08 - travel cleared by Dr Johnson [facility] Medical History (Updated 08/09/23 @ 00:02 by Byron May) COPD (chronic obstructive pulmonary disease) Sleep apnea treated with continuous positive airway pressure (CPAP) Morbid obesity Asthma Obesity Hypothyroidism Hypertension Surgical History (Updated 08/09/23 @ 00:02 by Byron May) Hx of eye surgery Hx of resection of rib History of umbilical hernia repair (~2015) History of colonoscopy (~2014) Household Members: Spouse and Children Housing: House Are you a primary primary care coordinator to a significant other at home: No Do you presently have visiting nurse or other home services: No Patient Tobacco Use Status: Never used Tobacco Physical Exam Const General: cooperative, healthy appearing and comfortable GI Inspection: Yes incision (c/d/1 with steri strips) Palpation (GI): Soft to palpation, nontender and no guarding Assessment & Plan Assessment & Plan (1) S/P laparoscopic sleeve gastrectomy: Code(s): Z98.84 - Bariatric surgery status Plan: 1 week post op LSG, doing very well. But dizzy every day even with half dosing of HTN meds. I advised him to text Dr Carlo casas this information today and SBP of 116 - to stop HCTZ combination pill first. No changes to meal plan today Continue exercise routine and can start UE and LE wieght machines now. Next appt in 4 weeks with me. (2) Obstructive sleep apnea syndrome: Code(s): G47.33 - Obstructive sleep apnea (adult) (pediatric) (3) COPD (chronic obstructive pulmonary disease): Comment: stable with Breo inhaler Code(s): J44.9 - Chronic obstructive pulmonary disease, unspecified (4) Hypertension: Code(s): I10 - Essential (primary) hypertension (5) Hypothyroidism: Code(s): E03.9 - Hypothyroidism, unspecified Coding Level of Care Code Global (81394) Diagnoses S/P laparoscopic sleeve gastrectomy Z98.84 Obstructive sleep apnea syndrome G47.33 COPD (chronic obstructive pulmonary disease) J44.9 Hypertension I10 Hypothyroidism E03.9
[2023-08-14 10:30] VITALS: BP 116/67; PULSE 76; TEMP 36.5; O2SAT 95; BMI 34.5
== END 2023-08-14 10:53 | disposition home or self-care (01) ==
PROVIDERS: PCP Internal Medicine; Visit Provider Physician Assistant
DX: Z98.84 Bariatric surgery status (principal); G47.33 Obstructive sleep apnea (adult) (pediatric); J44.9 Chronic obstructive pulmonary disease, unspecified; I10 Essential (primary) hypertension; E03.9 Hypothyroidism, unspecified
CPT/HCPCS: 99024

== ENCOUNTER → 2023-08-14 09:32 | Outpatient (BNVA) | payer OTHER, SELFPAY | PROVIDERS: PCP Internal Medicine; Visit Provider Physician Assistant ==

== ENCOUNTER 2023-09-07 08:08 | Outpatient (AMB) | payer OTHER, SELFPAY ==
--- NOTE | 2023-09-07 08:12 | A.OFFVIS_ITS ---
Intake VS Expanded 09/07/23 08:24 BP 152/86 H Blood Pressure Location Rt brachial Blood Pressure Position Sitting Pulse 75 Pulse Source Pulse Oximeter Temp 97.5 F Temperature Source Tympanic Pulse Oximetry 96 Oxygen Delivery Method Room Air Height 5 ft 5 in Weight 192 lb 9.6 oz BMI 32.0 Body Fat % 28.3 Body Fat Mass 54.4 Fat Free Mass 138.0 Visceral Fat Rating 15.0 Body Water % 52.0 Body Water Mass 100.0 Muscle Mass/Score 131.2 Basal Metabolic Rate/Score 1,835 Intake Visit Reasons: (OV) LSG 08/07/23 Allergies Penicillins [PENICILLINS] Allergy (Severe, Verified 09/07/23 08:13) RASH,THROAT CLOSING fexofenadine [From ENDY] Allergy (Intermediate, Verified 09/07/23 08:13) RASH Medication List - Last Reconciled 09/07/23 by Nay Mo PA-C albuterol sulfate 90 mcg/actuation (ProAir HFA) 2 puffs inhalation Q6H PRN amlodipine 5 mg PO DAILY fluticasone furoate-vilanterol 200-25 mcg/dose (Breo Ellipta) 1 inh inhalation DAILY levothyroxine (Synthroid) 150 mcg PO DAILY pantoprazole 40 mg PO DAILY sucralfate 10 mL PO BID HPI HPI Comments History of Present Illness Details 53 yo man s/p LSg on 08/07, will be chi[place]ing to [place] tomorrow (cleared by Dr Matos). 30 days post, No n/v. Feeling fullwhen eats tuna, chicken - 2-3 bites and then eats more half hour later. BP 130 - 140's /70 in and pm n 5mg Amlodipine. Meal plan - wakes 5am takes meds 6am 20 oz black coffee with Failife sha ke 6:45 - 4:1 1 scoop with 1 scoop REbuild UAM 16 oz - over 2.5 - 3hours 1 - 2p - 4 oz chicken - over 60 minutes 6pm - 4oz chicken or tuna over 60 minute s Gym - 4-6 d/ week treadmill 3 miles over 44 minutes - speed 3.5 - 4, taylor 300 caloreis. Started free weights but no abs yet. [facility] Medical History (Updated 08/09/23 @ 00:02 by Background Daemon) COPD (chronic obstructive pulmonary disease) Sleep apnea treated with continuous positive airway pressure (CPAP) Morbid obesity Asthma Obesity Hypothyroidism Hypertension Surgical History (Updated 09/07/23 @ 08:32 by Zenaida Harris [facility]) Hx of laparoscopic partial gastrectomy Hx of eye surgery Hx of resection of rib History of umbilical hernia repair (~2015) History of colonoscopy (~2014) Social History Household Members: Spouse and Children Housing: House Are you a primary day care home provider to a significant other at home: No Do you presently have visiting nurse or other home services: No Patient Tobacco Use Status: Never used Tobacco Physical Exam Vital Signs: Last Vital Signs Temp 97.5 F 09/07/23 08:24 Pulse 75 09/07/23 08:24 BP 152/86 H 09/07/23 08:24 Pulse Ox 96 09/07/23 08:24 Oxygen Delivery Method Room Air 09/07/23 08:24 BMI result Body Mass Index 32.0 Assessment & Plan Assessment & Plan (1) S/P laparoscopic sleeve gastrectomy: Code(s): Z98.84 - Bariatric surgery status Plan: Needs 85 grams per day. Patient changed his meal plan himself in dangerous ways. We talked about stopping the 20 oz of coffee jaci m, eating until full and eating too infrequently for his level of activity. 6am - shake with caffeine over 3 hours 10am - shake - 25 gram 2pm - bar 6pm - 2 forks of protein 2 forks of cooked vegetables Exercise - same, will increase after 6 weeks post op. Will ambulate hourly on his plane trip to [place] tomorrow. Will text me weekly weights and next appt with me in 4 weeks. Coding Level of Care Code Global (22542) Diagnoses S/P laparoscopic sleeve gastrectomy Z98.84
[2023-09-07 08:24] VITALS: BP 152/86; PULSE 75; TEMP 36.4; O2SAT 96; BMI 32.0
== END 2023-09-07 09:10 | disposition home or self-care (01) ==
PROVIDERS: PCP Internal Medicine; Visit Provider Physician Assistant
DX: Z98.84 Bariatric surgery status (principal)
CPT/HCPCS: 99024

== ENCOUNTER → 2023-09-07 08:08 | Outpatient (BNVA) | payer OTHER, SELFPAY | PROVIDERS: PCP Internal Medicine; Visit Provider Physician Assistant | DX: Z98.84 Bariatric surgery status (principal) | CPT/HCPCS: 99212 ==

== ENCOUNTER 2023-09-28 11:23 | Outpatient (AMB) | payer OTHER, SELFPAY ==
--- NOTE | 2023-09-28 09:55 | MHC.OFFVISWM ---
Intake VS Expanded 09/28/23 11:08 Height 5 ft 5 in Weight 189 lb 4 oz BMI 31.5 Intake Visit Reasons: VIDEO LSG 08/07/23 Allergies Penicillins [PENICILLINS] Allergy (Severe, Verified 09/07/23 08:13) RASH,THROAT CLOSING fexofenadine [From ENDY] Allergy (Intermediate, Verified 09/07/23 08:13) RASH Medication List - Last Reconciled 09/28/23 by Nay Mo PA-C albuterol sulfate 90 mcg/actuation (ProAir HFA) 2 puffs inhalation Q6H PRN amlodipine 5 mg PO DAILY fluticasone furoate-vilanterol 200-25 mcg/dose (Breo Ellipta) 1 inh inhalation DAILY levothyroxine (Synthroid) 150 mcg PO DAILY pantoprazole 40 mg PO DAILY sucralfate 10 mL PO BID HPI HPI Comments History of Present Illness Details Pt is now 9 weeks s/p LSG, [employer] weight of 253.4 lbs, TBWL is 64 lbs or 25%. Diagnosed with COVID last night, minimal symptoms only. At his last appt we changed his meal plan significantly - he had made inappropriate changes himself. Needed to stop the 20 oz of coffee he was having every morning. BP - 120/80's - on 5 mg now. Stop all caffeine. Meal plan: 6 am - Celebrate 4:1 2 scoops with 2% milk - over 2 hours 11am - shake - 20 gram 3 pm - bar - 20 grams 6 pm - 4 forks of protein, no vegetables Exercise - while on vacation biked and walked daily. Had restarted gym but now will stop due to COVID. Will continue to do ZING video exercises - >4 d/ week. [facility] Medical History COPD (chronic obstructive pulmonary disease) Sleep apnea treated with continuous positive airway pressure (CPAP) Morbid obesity Asthma Obesity Hypothyroidism Hypertension Surgical History Hx of laparoscopic partial gastrectomy Hx of eye surgery Hx of resection of rib History of umbilical hernia repair (~2015) History of colonoscopy (~2014) Social History (Reviewed 08/14/23 @ 10:27 by ELADIO Rodriguez Household Members: Spouse and Children Housing: House Are you a primary health care manager to a significant other at home: No Do you presently have visiting nurse or other home services: No Patient Tobacco Use Status: Never used Tobacco Assessment & Plan Assessment & Plan (1) S/P laparoscopic sleeve gastrectomy: Code(s): Z98.84 - Bariatric surgery status Plan: 9 weeks post op, need about 85 gram of protein per day. Has made healthy changes. 6am - 4:1 2 scoops with water 11 am - same shake 3pm - bar 6 pm- 4 forks protein Will continue with ZING work outs at least 4 d/ week, expect 2-3 lbs weight loss per week now. Will start bariatric MVI - if chooses not to continue with 4:1 shakes. No med changes today Next appt with me in 4 weeks, Telehealth Telehealth Location of provider rendering services: practice address Location of patient: address on file Patient Identification confirmed using: Name, : Yes Telehealth method: video Patient verbally consented to treatment: Yes Patient verbally consented to billing insurance company: Yes Patient informed of any privacy concerns related to visit: Yes Coding Level of Care Code Global (37655) Diagnoses S/P laparoscopic sleeve gastrectomy Z98.84
[2023-09-28 11:08] VITALS: BMI 31.5
== END 2023-09-28 12:07 | disposition home or self-care (01) ==
LOC: HO.HBS 11:23
PROVIDERS: PCP Internal Medicine; Visit Provider Physician Assistant
DX: Z98.84 Bariatric surgery status (principal)
CPT/HCPCS: 99024

== ENCOUNTER → 2023-09-28 11:23 | Outpatient (BNVA) | payer OTHER, SELFPAY | PROVIDERS: PCP Internal Medicine; Visit Provider Physician Assistant | DX: Z98.84 Bariatric surgery status (principal) | CPT/HCPCS: 99212 ==

== ENCOUNTER 2023-10-29 14:00 | Outpatient (AMB) | payer OTHER, SELFPAY ==
--- NOTE | 2023-10-29 14:06 | A.OFFVIS_ITS ---
Intake VS Expanded 10/29/23 14:07 Height 5 ft 5 in Weight 178 lb 6 oz BMI 29.7 Intake Visit Reasons: VIDEO LSG 08/07/23 Allergies Penicillins [PENICILLINS] Allergy (Severe, Verified 09/07/23 08:13) RASH,THROAT CLOSING fexofenadine [From ENDY] Allergy (Intermediate, Verified 09/07/23 08:13) RASH Medication List - Last Reconciled 10/29/23 by Nay Mo PA-C albuterol sulfate 90 mcg/actuation (ProAir HFA) 2 puffs inhalation Q6H PRN amlodipine 5 mg PO DAILY fluticasone furoate-vilanterol 200-25 mcg/dose (Breo Ellipta) 1 inh inhalation DAILY levothyroxine (Synthroid) 150 mcg PO DAILY [id number]-vit K 45 mg iron- 800 mcg-120 mcg (Bariatric Multivitamins) caps PO pantoprazole 40 mg PO DAILY sucralfate 10 mL PO BID HPI HPI Comments History of Present Illness Details Pt is now 12 weeks s/p LSG, [employer] weigh t of 253.4 lbs, TB WL is 74.8 lbs or 30%. Is taking ba riatric MVI. Kelli ent states he is sick of shakes an d has stopped usin g them and bars on his own Meal alfa n:per patient over last 3-4 days 8am - 2 slices of low sodium slices of deli meat and 1 sl ice cheese, drinks 8 oz whole milk. 12 pm - 20 gram pr otein bar 5:30 - 4 forks of protein, tried cooked minnie coli - 2 forks - got stomach ache. Exercise - gym 4- 5 d/week - 300 on elliptical or catracho dmill and then jenny ghts Exercise - while on vacati on biked and [place] d daily. Had resta rted gym but now w ill stop due to [place] VID. Will continue to do ZING video exercises - >4 d/ week. [facility] Medical History COPD (chronic obstructive pulmonary disease) Sleep apnea treated with continuous positive airway pressure (CPAP) Morbid obesity Asthma Obesity Hypothyroidism Hypertension Surgical History Hx of laparoscopic partial gastrectomy Hx of eye surgery Hx of resection of rib History of umbilical hernia repair (~2016) History of colonoscopy (~2014) Social History Household Members: Spouse and Children Housing: House Are you a primary career and guidance counselor to a significant other at home: No Do you presently have visiting nurse or other home services: No Patient Tobacco Use Status: Never used Tobacco Assessment & Plan Assessment & Plan (1) Overweight: Code(s): E66.3 - Overweight Plan: Exercise - increasing to 350 calories 4-5 d/ week with weights. Change routine to speed 3.2, incline 3- 9 or use stepper. Focus on 10cal/minute. Continue bariatric MVI and added calcium citrate. Meal plan - needs 80 grams per day and doesn't want flavored shakes 8am - yogurt or cottage with 1/2 scoop unflavored protein powder 12pm - 20 gram bar 6pm - 6 forks lean protein, 2 forks non cabbage cooked vegetables Next appt 6 weeks with me Pt to continue to text weekly, MUST ask for changes when he needs them and not make chnages on his own. Medications: New calcium citrate-vitamin D3 315 mg-5 mcg (200 unit) (Calcium Citrate + D) 1 tab PO BID 60 tabs 11RF Coding Level of Care Code Global (68269) Diagnoses Overweight E66.3
[2023-10-29 14:07] VITALS: BMI 29.7
--- OUTSIDE RECORDS SUMMARY | 2023-10-29 14:11 | XMS_ITS | Patient Health Record ---
Author Name Unknown Organization Aston Fox MD Address [address] [place], [place] [id number] Care Team Providers Care Budget Clerk Name Role Phone Aston Fox Primary Care Provider [phone] ALLERGIES Allergen (clinical drug ingredient) Drug/Non Drug [...] date:05/04/2023 09:43:29 AM Interpretation: Performing Lab: Notes/Report: [address] [address] XRay Report Signed Patient: Rachel Wynn MR#: [id number] 159 : 1970 Acct:[id number] Age/Sex: 52 / M ADM Date: 04/24/23 Loc: NIC Attending Dr: Aston Fox MD Ordering Physician: Aston Fox MD Date of Service: 04/24/23 Procedure(s): XR ribs LT min 3V w CXR1V Accession Number(s): [id number] cc: Aston Fox MD EXAMINATION: XR RIBS, [...] by Preston Plata MD in OV> 05/01/23 4860 DD/ 1115 TD/TT: Family Centered Specialist: Complete Blood Count Auto Di ff Reviewed date:06/11/2023 12:25:07 PM Interpretation: Performing Lab:[facility], [address] [place] [phone] Notes/Report: White Blood Count 7.5 4.8-10.8 X10*3/uL [...] 10:48:59 AM Interpretation: Performing Lab:[facility], [address] [place] [phone] Notes/Report: Sodium 138 135-145 mmol/L Potassium 3.5 3.3-5.1 mmol/L Chloride 102 96-108 mmol/L Carbon Dioxide 27 22-29 mmol/L Anion Gap 13 12-20 Blood Urea Nitrogen 17 9-16 mg/dL Creatinine 0.82 0.5-1.4 mg/dL Estimated Glomerular Filt Rate > 60 NOTE: For -Guyanese individuals, multiply the result by 1.210. Chronic [...] 09:55:23 AM Interpretation: Performing Lab:[facility], [address] [place] [phone] Notes/Report: Iron 147 45-160 mcg/dL Total Iron Binding Capacity 325 228-428 mcg/d L Percent Iron Saturation 45 15-50 % Unsaturated Iron Binding 178 Ferritin Reviewed date:06/11/2023 09:55:31 AM Interpretation: Performing Lab:[facility], [address] [place] [phone] Notes/Report: Ferritin 258 20-250 ng/mL C Reactive Protein Reviewed date:06/11/2023 09:55:07 AM Interpretation: Performing Lab:[facility], [address] [place] [phone] Notes/Report: C Reactive Protein 0.45 < or = 0.50 mg/dL Lipid Panel Reviewed date:06/11/2023 09:55:15 AM Interpretation: Performing Lab:[facility], [address] [place] [phone] Notes/Report: Triglycerides 102 <150 mg/dL Desirable Triglyceride: [...] 09:28:24 AM Interpretation: Performing Lab:[facility], [address] [place] [phone] Notes/Report: Vitamin B12 476 200-900 pg/mL NORMAL 200-900 PG/ML INDETERMINATE 160-199 PG/ML DEFICIENT < 160 PG/ML Folate 13.0 > or = 4.0 ng/mL Reference Values: > or = 4.0 ng/mL < 4.0 ng/mL suggests folate deficiency Methotrexate, aminopterin and folinic acid (leucovorin) are chemotherapeutic agents whose molecular structures are similar to folate; therefore, the Audograph Operator folate assay cannot be used for patients using these drugs. Vitamin A Reviewed date:06/17/2023 06:39:19 PM Interpretation: Performing Lab:[facility], [address] [place] [phone] Notes/Report: Vitamin A 62 38-98 mcg/dL Vitamin supplementation within 24 hours prior to blood draw may affect the accuracy of the results. This test was developed and its analytical performance characteristics have been determined by [facility] [place] [place]. It has not been cleared or approved by the U.S. Food and Drug Administration. This assay has been validated pursuant to the CLIA regulations and is used for clinical purposes. THIS TEST WAS PERFORMED AT: [facility] [address] MATTHEW MANDEL MD,PHD Vitamin B1 Reviewed date:06/17/2023 06:38:18 PM Interpretation: Performing Lab:[facility], [address] [place] [phone] Notes/Report: Vitamin B1 7 8-30 nmol/L Vitamin supplementation within 24 hours prior to blood draw may affect the accuracy of the results. This test was developed and its analytical performance characteristics have been determined by [facility] [place] [place]. It has not been cleared or approved by the U.S. Food and Drug Administration. This assay has been validated pursuant to the CLIA regulations and is used for clinical purposes. THIS TEST WAS PERFORMED AT: [facility]/[address] MATTHEW MANDEL MD,PHD Vitamin D 25-OH Total Reviewed date:06/11/2023 10:48:05 AM Interpretation: Performing Lab:[facility], [address] [place] [phone] Notes/Report: Vitamin D 25-OH Total 42.2 >30 [...] T4 Reviewed date:06/11/2023 09:55:51 AM Interpretation: Performing Lab:[address] [phone] Notes/Report: TSH reflex Free T4 1.83 0.32-4.0 uIU/mL PTHI Reviewed date:06/12/2023 04:18:19 PM Interpretation: Performing Lab:[address] [phone] Notes/Report: PTHI 29 16-77 pg/mL Interpretive Guide Intact PTH Calcium ------- Normal Parathyroid Normal Normal Hypoparathyroidism Low or Low Normal Low Hyperparathyroidism Primary Normal or High High Secondary High Normal or Low Tertiary High High Non-Parathyroid Hypercalcemia Low or Low Normal High Calcium (PTHI) 9.8 8.6-10.3 mg/dL THIS TEST WAS PERFORMED AT: [facility] [address] [place] [phone] FLOR BETANCOURT MD Zinc Reviewed date:06/15/2023 08:35:47 AM Interpretation: Performing Lab:[address] [phone] Notes/Report: Zinc 76 60-130 mcg/dL This test was developed and its analytical performance characteristics have been determined by [facility] [place] [place]. It has not been cleared or approved by the U.S. Food and Drug Administration. This assay has been validated pursuant to the CLIA regulations and is used for clinical purposes. THIS TEST WAS PERFORMED AT: [facility] [address] [place] [address] MATTHEW MANDEL MD,PHD Hemoglobin A1c Reviewed date:06/11/2023 09:29:00 AM Interpretation: Performing Lab:[address] [phone] Notes/Report: Hemoglobin A1c % 5.1 <6.0 % [...] average glucose, using the formula of the H0D-Qmutzze Average Glucose study (ADAG), Diabetes Care, Vol.31,#8, 2007 Insulin Reviewed date:06/11/2023 09:28:37 AM Interpretation: Performing Lab:[facility], [address] [place] [phone] Notes/Report: Insulin 11 2-29 uU/mL This test [...] date:06/12/2023 12:08:20 PM Interpretation: Performing Lab: Notes/Report: [address] [address] XRay Report Signed Patient: Rachel Wynn MR#: [id number] 159 : 1970 Acct:[id number] Age/Sex: 53 / M ADM Date: 06/11/23 Loc: HO.LAB Attending Dr: Ruddy May MD Ordering Physician: Ruddy May MD Date of Service: 06/11/23 Procedure(s): XR chest 2V Accession Number(s): [id number] cc: Aston Fox MD; Ruddy May MD [...] in OV> 06/12/23 1009 DD/ 0741 TD/TT: Family Centered Specialist: H Pylori Breath Test Reviewed date:06/17/2023 06:38:27 PM Interpretation: Performing Lab:[facility], [address] [place] [phone] Notes/Report: H Pylori Breath Test Negative Negative Antimicrobials, proton pump inhibitors and bismuth preparations are known to suppress H. pylori. Ingesting these medications within two weeks prior to performing the breath test may produce negative test results. A positive result is still clinically valid. US abdomen comp w elastograp hy Reviewed date:07/03/2023 09:06:31 AM Interpretation: Performing Lab: Notes/Report: [address] [place] [address] Ultrasound Report Signed Patient: Rachel Wynn MR#: [id number] 159 : 1970 Acct:[id number] Age/Sex: 53 / M ADM Date: 06/28/23 Loc: HO.US Attending Dr: Ruddy May MD Ordering Physician: Ruddy May MD Date of Service: 06/28/23 Procedure(s): US abdomen comp w elastography Accession Number(s): [id number] cc: Aston Fox MD; Ruddy May MD [...] in OV> 07/02/23 1650 DD/ 1040 TD/TT: Family Centered Specialist: ROSSANA FL upper GI w air Reviewed date:07/03/2023 11:36:02 AM Interpretation: Performing Lab: Notes/Report: [address] [address] Fluoroscopy Report Signed Patient: Rachel Wynn MR#: [id number] 159 : 1970 Acct:[id number] Age/Sex: 53 / M ADM Date: 07/03/23 Loc: HO.XRAY Attending Dr: Ruddy May MD Ordering Physician: Ruddy May MD Date of Service: 07/03/23 Procedure(s): FL upper GI w air Accession Number(s): [id number] cc: Aston Fox MD; Ruddy May MD [...] in OV> 07/03/23 1126 DD/ 1020 TD/TT: Family Centered Specialist: EMIL jono perf SPECT rest & str Reviewed date:07/24/2023 05:00:39 PM Interpretation: Performing Lab: Notes/Report: [address] [address] Nuclear Medicine Report Signed Patient: Rachel Wynn MR#: [id number] 159 : 1970 Acct:[id number] Age/Sex: 53 / M ADM Date: 07/23/23 Loc: KATY Attending Dr: Ruddy May MD Ordering Physician: Ruddy May MD Date of Service: 07/23/23 Procedure(s): NM jono perf SPECT rest str Accession Number(s): [id number] cc: Aston Fox MD; Ruddy May MD [...] in OV> 07/24/23 1547 DD/ 0830 TD/TT: Family Centered Specialist: Complete Blood Count Auto Di ff Reviewed date:07/30/2023 12:26:25 PM Interpretation: Performing Lab:[facility], [address] [place] [phone] Notes/Report: White Blood Count 6.3 4.8-10.8 X10*3/uL [...] NRBC Abs Auto 0.000 0.0-0.012 X10*3/uL Comprehensive Moore. Panel Fa st Reviewed date:07/30/2023 12:25:16 PM Interpretation: Performing Lab:[facility], [address] [place] [phone] Notes/Report: Sodium 140 135-145 mmol/L Potassium 3.5 3.3-5.1 mmol/L Chloride 105 96-108 mmol/L Carbon Dioxide 27 22-29 mmol/L Anion Gap 12 12-20 Blood Urea Nitrogen 17 9-16 mg/dL Creatinine 0.76 0.5-1.4 mg/dL Estimated Glomerular Filt Rate > 60 NOTE: For -Guyanese individuals, multiply the result by 1.210. Chronic [...] 12:21:08 PM Interpretation: Performing Lab:[facility], [address] [place] [phone] Notes/Report: Triglycerides 94 <150 mg/dL Desirable Triglyceride: [...] 12:20:44 PM Interpretation: Performing Lab:[facility], [address] [place] [phone] Notes/Report: PSA,Total (Free>4and<10) 1.19 0.00-4.00 ng/mL A [...] 12:20:03 PM Interpretation: Performing Lab:[facility], [address] [place] [phone] Notes/Report: TSH reflex Free T4 1.00 0.32-4.0 uIU/mL Microalbumin, Random Reviewed date:07/30/2023 12:28:14 PM Interpretation: Performing Lab:[facility], [address] [place] [phone] Notes/Report: Creatinine Urine 60.72 Microalbumin Urine 22.0 Microalbum/Creatinine Ratio Ur 36.2 <30 ug/mg cr Albumin/Creatinine Ratio Reference Ranges: Normal: < 30 ug/mg creatinine Microalbuminuria: 30 - 300 ug/mg creatinine Clinical Albuminuria: > 300 ug/mg creatinine Hemoglobin A1c Reviewed date:07/30/2023 12:20:35 PM Interpretation: Performing Lab:[facility], [address] [place] [phone] Notes/Report: Hemoglobin A1c % 5.0 <6.0 % [...] average glucose, using the formula of the V4A-Ejqdjdo Average Glucose study (ADAG), Diabetes Care, Vol.31,#8, Apr. 2007 UA ClnCatch+Micro w/rflx Cul t Reviewed date:07/30/2023 12:33:22 PM Interpretation: Performing Lab:[facility], [address] [place] [phone] Notes/Report: [id number] Urine, Clean Catch Color Urine Yellow Appearance Urine Clear PH 7.0 5.0-9.0 Glucose Urine UA Negative Negative mg/dL Urine Blood Negative Negative Specific [place] - Urine 1.015 1.005-1.025 Urine Protein Negative [...] ff Reviewed date:08/01/2023 07:51:09 AM Interpretation: Performing Lab:[address] [phone] Notes/Report: White Blood Count 6.6 4.8-10.8 X10*3/uL [...] 07:51:09 AM Interpretation: Performing Lab:[facility], [address] [place] [phone] Notes/Report: Prothrombin Time 12.6 11.1-13.3 SEC INTERNATIONAL [...] Time Reviewed date:08/01/2023 07:50:20 AM Interpretation: Performing Lab:[address] [address] Notes/Report: Partial Thromboplastin Time 32.7 26.0-36.4 SEC Comprehensive Met. Panel Reviewed date:08/01/2023 07:51:09 AM Interpretation: Performing Lab:[address] [phone] Notes/Report: Sodium 141 135-145 mmol/L Potassium 3.4 3.3-5.1 mmol/L Chloride 104 96-108 mmol/L Carbon Dioxide 27 22-29 mmol/L Anion Gap 13 12-20 Blood Urea Nitrogen 19 9-16 mg/dL Creatinine 0.81 0.5-1.4 mg/dL Estimated Glomerular Filt Rate > 60 NOTE: For -Guyanese individuals, multiply the result by 1.210. Chronic [...] Protein Reviewed date:08/01/2023 07:51:09 AM Interpretation: Performing Lab:[address], [place] [address] Notes/Report: C Reactive Protein 0.88 < or = 0.50 mg/dL Lipid Panel Reviewed date:08/01/2023 07:51:09 AM Interpretation: Performing Lab:[address] [phone] Notes/Report: Triglycerides 59 <150 mg/dL Desirable Triglyceride: [...] 07:51:09 AM Interpretation: Performing Lab:[facility], [address] [place] [phone] Notes/Report: TSH reflex Free T4 1.70 0.32-4.0 uIU/mL Hemoglobin A1c Reviewed date:08/01/2023 07:51:10 AM Interpretation: Performing Lab:[facility], [address] [place] [phone] Notes/Report: Hemoglobin A1c % 4.9 <6.0 % [...] average glucose, using the formula of the T6P-Ceqlrht Average Glucose study (ADAG), Diabetes Care, Vol.31,#8, Apr. 2007 Type and Screen Reviewed date:08/02/2023 12:29:33 PM Interpretation: Performing Lab:[facility], [address] [place] [phone] Notes/Report: WITNESSED BY [facility]URSING: Call Blood Bank (ext. [phone]) to band patient on admission. Type and Screen in effect until 2300 on 08/07/23 Blood Type AP Antibody Screen NEGATIVE Insulin Reviewed date:08/01/2023 07:51:10 AM Interpretation: Performing Lab:[facility], [address] [place] [phone] Notes/Report: Insulin 8 2-29 uU/mL This test was performed using the Benz chemiluminescent method. Values obtained from different assay methods cannot be used interchangeably. This insulin assay shows a possible cross-reactivity with antibodies generated against insulin (immunoreactive insulin and some patients treated with bovine or porcine insulin). Insulin levels may be measured lower in patients with insulin autoimmune syndrome or familial high pro-insulinemia. Hemoglobin and Hematocrit Reviewed date:08/07/2023 12:07:01 PM Interpretation: Performing Lab:[facility], [address] [place] [phone] Notes/Report: Pt not in room coolr Hemoglobin 14.6 14.0-18.0 g/dl Hematocrit 42.7 42.0-52.0 % Basic Metabolic Panel Reviewed date:08/07/2023 12:01:10 PM Interpretation: Performing Lab:[facility], [address] [place] [phone] Notes/Report: Pt not in room coolr Sodium 140 135-145 mmol/L Potassium 3.6 3.3-5.1 mmol/L Chloride 104 96-108 mmol/L Carbon Dioxide 24 22-29 mmol/L Anion Gap 16 12-20 Blood Urea Nitrogen 14 9-16 mg/dL Creatinine 0.84 0.5-1.4 mg/dL Creatinine Clr Calc Pharmacy 111.7 eGFR (calculated from the MDRD study equation) and eCrCl (calculated from the Cockcroft-Gault equation) are based on different parameters and may not yield comparable results. If eCrCl result is absurd, please check patient's height/weight. Estimated Glomerular Filt Rate > 60 NOTE: For -Guyanese individuals, multiply the result by 1.210. Chronic Kidney Disease: Estimated GFR < 60 mL/min/1.73m2 Severe Kidney Disease: Estimated GFR < 15 mL/min/1.73m2 Glucose Random 131 60-115 mg/dL Calcium 9.2 8.4-10.2 mg/dL Glucose, Whole Blood Reviewed date:08/08/2023 03:49:09 PM Interpretation: Performing Lab:[facility], [address] [place] [phone] Notes/Report: Glucose, Whole Blood 125 60-115 mg/dL METER # : [id number] Pathology Reviewed date:08/08/2023 03:49:09 PM Interpretation: Performing Lab:[facility], [address] [place] [phone] Notes/Report: Complete Blood Count Auto Di ff Reviewed date:08/08/2023 03:49:09 PM Interpretation: Performing Lab:[facility], [address] [place] [phone] Notes/Report: White Blood Count 6.3 4.8-10.8 X10*3/uL Red Blood Count 4.58 4.60-5.80 X10*6/uL Hemoglobin 13.9 14.0-18.0 g/dl Hematocrit 39.7 42.0-52.0 % Mean Corpuscular Volume 86.7 80.0-98.0 fL Mean Corpuscular Hemoglobin 30.3 27.0-33.0 pg Mean Corpuscular HGB Conc 35.0 31.0-36.0 g/dl Red Cell Distribution Width 12.0 11.0-16.0 % Platelet Count 236 160-400 X10*3/uL Mean Platelet Volume 11.6 9.4-12.4 fL Neutrophils Percent Auto 81.5 45-73 % Imm Gran Pct Auto 0.3 0.0-0.4 % Lymphocytes Percent Auto 10.3 20-40 % Monocytes Percent Auto 7.9 2-11 % Eosinophils Percent Auto 0.0 0-4 % Basophils Percent Auto 0.0 0-2 % NRBC Pct Auto 0.0 0.0-0.2 /100WBC Neutrophils Absolute Auto 5.2 2.0-8.3 x10*3/u L Imm Gran Abs Auto 0.02 0.00-0.03 X10*3/uL Lymphocytes Absolute Auto 0.7 1.2-4.9 X10*3/u L Monocytes Absolute Auto 0.5 0.1-1.2 X10*3/uL Eosinophils Absolute Auto 0.0 0.0-0.4 X10*3/u L Basophils Absolute Auto 0.0 0.0-0.2 X10*3/uL NRBC Abs Auto 0.000 0.0-0.012 X10*3/uL Basic Metabolic Panel Reviewed date:08/08/2023 03:49:09 PM Interpretation: Performing Lab:[facility], [address] [place] [phone] Notes/Report: Sodium 139 135-145 mmol/L Potassium 3.6 3.3-5.1 mmol/L Chloride 103 96-108 mmol/L Carbon Dioxide 24 22-29 mmol/L Anion Gap 16 12-20 Blood Urea Nitrogen 12 9-16 mg/dL Creatinine 0.72 0.5-1.4 mg/dL Creatinine Clr Calc Pharmacy 130.3 eGFR (calculated from the MDRD study equation) and eCrCl (calculated from the Cockcroft-Gault equation) are based on different parameters and may not yield comparable results. If eCrCl result is absurd, please check patient's height/weight. Estimated Glomerular Filt Rate > 60 NOTE: For -Guyanese individuals, multiply the result by 1.210. Chronic Kidney Disease: Estimated GFR < 60 mL/min/1.73m2 Severe Kidney Disease: Estimated GFR < 15 mL/min/1.73m2 Glucose Random 108 60-115 mg/dL Calcium 9.2 8.4-10.2 mg/dL REASON FOR REFERRAL Reason Bariatric surgery Diagnosis [...] 11:14:21 AM EDT > info faxed phone [phone], Catia Sewell 2023 03:31:57 PM EDT > spoke with office he needs to watch the video first then they will be able to set him up with an appt. Their office will call to get him set up with the video , Catia Sewell 05/14/2023 11:42:26 AM EDT > called their office patient still has not done te video yet , Maribeth Sewellette 06/01/2023 11:02:14 AM EDT > spoke with patient today he watch the video and he will be calling to book his own appt, Catia Sewell 06/04/2023 11:48:35 AM EDT > patient is aware of appt Referral Priority Routine Referral Appointment Date 06/05/2023 MEDICATIONS Medication SIG (Take, Route, Frequency, Duration) Notes Start Date End Date Status Benzonatate 200 MG 1 capsule Orally Thr ee times a day for 10 days 05/01/2023 Not-Taking Omeprazole 20 MG 1 capsule 30 minutes before morning meal Orally Once a day for 30 day(s) 07/21/2019 Not-Taking Albuterol Sulfate HFA 108 (90 Base) MCG/ACT 1 puff as needed Inhalation every 4 hrs 05/08/2023 Active Albuterol Sulfate (2.5 MG/3ML) 0.083% 3 ml as needed Inhalation every 4 hrs for 30 days 04/04/2021 Not-Taking Levothyroxine Sodium 150 MCG TAKE 1 TABLET BY MOUTH EVERY DAY IN THE MORNING Active Wixela Inhub 250-50 MCG/ACT 1 puff Inhalation Twice a day 04/21/2022 Active Fluticasone Propionate 50 MCG/ACT 1 spray in each nostril Nasally Once a day for 30 day(s) 06/11/2023 Not-Taking amLODIPine Besylate 10 MG TAKE 0.5 TABLE T BY MOUTH EVERY DAY FOR 90 DAYS Orally Once a day Active Dulera 200-5 MCG/ACT 2 puffs Inhalation Twice a day 06/12/2023 Active IMMUNIZATIONS Vaccine Route Administration Date Status [...] Notes Problem Reflux esophagitis (K21.00) Active confirmed 800343492 Problem Gynecomastia, male (N62) Active confirmed 8907570 Problem Essential hypertension (I10) Active confirmed 98691444 Problem Acquired hypothyroidism (E03.9) Active confirmed 572706792 Problem Mild intermittent asthma without complication (J45.20) Active confirmed 160799813 Problem Prediabetes (R73.09) Active confirmed 1442526 Problem Migraine with aura and without status migrainosus, not intractable (G43.109) Active confirmed 2885061 Problem Obstructive sleep apnea (G47.33) Active confirmed Obstructive sleep apnea (28080484) Problem Elevated LDL cholesterol level (E78.00) Active confirmed 642899614 Problem SHANE (obstructive sleep apnea) (G47.33) Active confirmed 85034220 Problem BMI 40.0-44.9, adult (Z68.41) Active confirmed Body mass index 40+ - morbidly obese (388467211) Problem Closed fracture of multiple ribs of left side with delayed healing, subsequent encounter (S22.42XG) Active confirmed VITAL SIGNS Blood pressure diastolic 80 mm Hg 10/05/2023 jenny ght is down 56 pounds since 06-11-23 Height 66 in 10/05/2023 weight is down 56 pounds since 06-11-23 Blood pressure systolic 122 mm Hg 10/05/2023 weig ht is down 56 pounds since 06-11-23 Weight 192 lbs 10/05/2023 weight is down 56 pounds since 06-11-23 BMI 30.99 kg/m2 10/05/2023 weight is down 56 pounds since 06-11-23 Encounters Encounter Location Date Provider Diagnosis Aston Fox MD [address] [place] [address] [id number] 10/05/2023 Aston Fox SHANE (obstructive sle ep apnea) G47.33 ; Annual physical exam Z00.00 ; Acquired hypothyroidism E03.9 ; Essential hypertension I10 ; Mild intermittent asthma without complication J45.20 ; Prediabetes R73.09 ; Colon cancer screening Z12.11 and Depression screening Z13.31 Aston Fox MD [address] [place] [address] [id number] 07/30/2023 Aston Fox Blood tests for routine general physical examination Z00.00 ; Essential hypertension I10 ; Prediabetes R73.09 ; Encounter for immunization Z23 ; Elevated LDL cholesterol level E78.00 and Acquired hypothyroidism E03.9 Aston Fox MD [address] [place] [address] [id number] 02/06/2023 Aston Fox Prediabetes R73.09 Aston Fox MD [address] [place] [address] [id number] 04/24/2023 Aston Fox Prediabetes R73.09 ; Closed fracture of multiple ribs of left side with delayed healing, subsequent encounter S22.42XG and BMI 40.0-44.9, adult Z68.41 Aston Fox MD [address] [place] [address] [id number] 06/11/2023 Aston Fox Nasal congestion R09.81 and BMI 40.0-44.9, adult Z68.41 Aston Fox MD [address] [place] [address] [id number] 01/19/2023 Aston Fox Acquired hypothyroidism E03.9 Aston Fox MD [address] [place] [address] [id number] 03/05/2023 Aston Fox Essential hypertensi on I10 and Mild intermittent asthma without complication J45.20 Aston Fox MD [address] [place] [address] [id number] 03/29/2023 Aston Fox MD [address] [place] [address] [id number] 04/10/2023 Aston Fox MD [address] [place] [address] [id number] 05/08/2023 Aston Fox Mild intermittent asthma without complication J45.20 Aston Fox MD [address] [place] [address] [id number] 05/08/2023 Aston Fox MD [address] [place] [address] [id number] 05/24/2023 Aston Fox MD [address] [place] [address] [id number] 06/12/2023 Aston Fox MD [address] [place] [address] [id number] 07/10/2023 Aston Fox Essential hypertensi on I10 Aston Fox MD [address] [place] [address] [id number] 08/09/2023 Aston Fox MD [address] [place] [address] [id number] 05/01/2023 Aston Fox Mild intermittent asthma without complication J45.20 and Bronchitis J40 Aston Fox MD [address] [place] [address] [id number] 05/02/2023 Aston Fox ASSESSMENTS Encounter Date Diagnosis Assessment Notes Treatment Notes Treatment Clinical Notes 10/05/2023 Annual physical exam (ICD-10 - Z00.00) labs reviewed and discussed with patient 10/05/2023 SHANE (obstructive sleep apnea) (ICD-10 - G47.33) has resolved with weight loss 07/30/2023 Essential hypertension (ICD-10 - I10) 07/30/2023 [...] J45.20) 07/10/2023 Essential hypertension (ICD-10 - I10) 05/01/2023 Bronchitis (ICD-10 - J40) 05/01/2023 Mild intermittent asthma without complication (ICD-10 - J45.20) Patient verbalizes understanding of medications side effects, interactions and warnings. 10/05/2023 Acquired hypothyroidism (ICD-10 - E03.9) tsh good, will continue current regiment 07/30/2023 Prediabetes (ICD-10 - R73.09) 04/24/2023 BMI 40.0-44.9, adult (ICD-10 - Z68.41) discussed diet 03/05/2023 Mild intermittent asthma without complication (ICD-10 - J45.20) 10/05/2023 Essential hypertension (ICD-10 - I10) taking one half amlodipine, will continue current regiment 07/30/2023 Encounter for immunization (ICD-10 - Z23) 10/05/2023 Mild intermittent asthma without complication (ICD-10 - J45.20) no longer bothered 07/30/2023 Elevated LDL cholesterol level (ICD-10 - E78.00) 10/05/2023 Prediabetes (ICD-10 - R73.09) great a1c, no need for medication at this time 07/30/2023 Acquired hypothyroidism (ICD-10 - E03.9) 10/05/2023 Colon cancer screening (ICD-10 - Z12.11) guaiac negative 10/05/2023 Depression screening (ICD-10 - Z13.31) negative screen PLAN OF TREATMENT Pending Test Test Name Order Date Electrocardiogram (EKG) 05/17/2017 XR CHEST 2 VIEW PA & LAT 04/07/2021 Sleep Study - Baseline 04/11/2021 Next Appt Details Provider Name:Aston Hodge ier, 09/30/2024 08:00:00 AM, [address] [place] [address], [address], [phone], Provider Name:Aston Hodge ier, 10/07/2024 09:30:00 AM, [address] [place] [address], [place] [address], [place], [place], [phone], Insurance Providers Payer Name Payer Address Payer Phone Subscriber Number Group Number Insured Name Patient Relationship to Insured Coverage Start Date Coverage End Date [facility] [address] [address] [place] [phone] [id number] Rachel Wynn Self - patient is the insured [facility] [address] [place] [address] [id number] Rachel Wynn Self - patient is the insured MEDICAL (GENERAL) HISTORY Medical History History ICD Code had been on flovent alone with no improv ement Colonoscopy- done 12/09/[address] Natalia rodriguez - repeat 10 years
== END 2023-10-29 14:29 | disposition home or self-care (01) ==
LOC: HO.HBS 14:09
PROVIDERS: PCP Internal Medicine; Visit Provider Physician Assistant
DX: E66.3 Overweight (principal)
CPT/HCPCS: 99024

== ENCOUNTER → 2023-10-29 14:00 | Outpatient (BNVA) | payer OTHER, SELFPAY | PROVIDERS: PCP Internal Medicine; Visit Provider Physician Assistant | DX: E66.3 Overweight (principal); Z68.29 Body mass index [BMI] 29.0-29.9, adult; Z98.84 Bariatric surgery status | CPT/HCPCS: 99212 ==

== ENCOUNTER 2023-12-10 10:00 | Outpatient (AMB) | payer OTHER, SELFPAY ==
--- NOTE | 2023-12-10 09:58 | MHC.OFFVISWM ---
Intake VS Expanded 12/10/23 10:04 Height 5 ft 5 in Weight 174 lb BMI 29.0 Intake Visit Reasons: VIDEO LSG 08/07/23 Allergies Penicillins [PENICILLINS] Allergy (Severe, Verified 09/07/23 08:13) RASH,THROAT CLOSING fexofenadine [From ENDY] Allergy (Intermediate, Verified 09/07/23 08:13) RASH Medication List - Last Reconciled 12/10/23 by Nay Mo PA-C albuterol sulfate 90 mcg/actuation (ProAir HFA) 2 puffs inhalation Q6H PRN amlodipine 5 mg PO DAILY calcium citrate-vitamin D3 315 mg-5 mcg (200 unit) (Calcium Citrate + D) 1 tab PO BID fluticasone furoate-vilanterol 200-25 mcg/dose (Breo Ellipta) 1 inh inhalation DAILY levothyroxine (Synthroid) 150 mcg PO DAILY btgdgpzdauru-vkn-nvda-FA-vit K 45 mg iron- 800 mcg-120 mcg (Bariatric Multivitamins) caps PO HPI HPI Comments History of Present Illness Details Pt is now 4 months s/p LSG. 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 Needs 80 grams protein. 7am - Gordon 20 gram protein shake 11 am- bar - Fit Crunch 18 grams 2pm - Gordon shake 6pm - 9 forks protein, 5 forks Exercise- daily, Cardio and ST PFSH Medical History COPD (chronic obstructive pulmonary disease) Sleep apnea treated with continuous positive airway pressure (CPAP) Morbid obesity Asthma Obesity Hypothyroidism Hypertension Surgical History Hx of laparoscopic partial gastrectomy Hx of eye surgery Hx of resection of rib History of umbilical hernia repair (~2015) History of colonoscopy (~2014) Social History Household Members: Spouse and Children Housing: House Are you a primary memory care director to a significant other at home: No Do you presently have visiting nurse or other home services: No Patient Tobacco Use Status: Never used Tobacco Assessment & Plan Assessment & Plan (1) Overweight: Code(s): E66.3 - Overweight Plan: We discussed goal of 1 - 1.5 lbs per week weight loss now to get to goal. Think about the longterm. No changes made to meal or exercise - but to use more intuition to make sure he is getting the nutrients that he needs each day. Will have next appt at 6 months with post op labs. I spent 20 minutes in total speaking with the patient via video conference counseling , reviewing records and charting in patients chart. . (2) S/P laparoscopic sleeve gastrectomy: Code(s): Z98.84 - Bariatric surgery status Plan see above Telehealth Telehealth Location of provider rendering services: practice address Location of patient: address on file Patient Identification confirmed using: Name, : Yes Telehealth method: video Patient verbally consented to treatment: Yes Patient verbally consented to billing insurance company: Yes Patient informed of any privacy concerns related to visit: Yes Coding Level of Care Code Tele Est Pt Level 3 (34392) Diagnoses Overweight E66.3 S/P laparoscopic sleeve gastrectomy Z98.84
[2023-12-10 10:04] VITALS: BMI 29.0
== END 2023-12-10 10:39 | disposition home or self-care (01) ==
LOC: HO.HBS 10:25
PROVIDERS: PCP Internal Medicine; Visit Provider Physician Assistant
DX: E66.3 Overweight (principal); Z98.84 Bariatric surgery status
CPT/HCPCS: 99213

== ENCOUNTER → 2023-12-10 10:00 | Outpatient (BNVA) | payer OTHER, SELFPAY | PROVIDERS: PCP Internal Medicine; Visit Provider Physician Assistant | DX: E66.3 Overweight (principal); Z98.84 Bariatric surgery status ==

== ENCOUNTER 2024-01-18 07:07 | Outpatient (REF) | payer OTHER, SELFPAY ==
[2024-01-18 07:22] LABS: MANUAL DIFF FLAG NO
[2024-01-18 07:47] LABS: Basophils Absolute Auto 0.1 X10*3/uL (0.0-0.2); Basophils Percent Auto 1.7 % (0-2); Eosinophils Absolute Auto 0.2 X10*3/uL (0.0-0.4); Eosinophils Percent Auto 4.2 % (0-4); Hematocrit 43.8 % (42.0-52.0); Hemoglobin 14.9 g/dl (14.0-18.0); Imm Gran Abs Auto 0.01 X10*3/uL (0.00-0.03); Imm Gran Pct Auto 0.2 % (0.0-0.4); Lymphocytes Absolute Auto 1.3 X10*3/uL (1.2-4.9); Lymphocytes Percent Auto 26.7 % (20-40); Mean Corpuscular Hemoglobin 30.6 pg (27.0-33.0); Mean Corpuscular Volume 89.9 fL (80.0-98.0); Mean Platelet Volume 10.4 fL (9.4-12.4); Monocytes Absolute Auto 0.5 X10*3/uL (0.1-1.2); Monocytes Percent Auto 10.4 % (2-11); Neutrophils Absolute Auto 2.7 x10*3/uL (2.0-8.3); Neutrophils Percent Auto 56.8 % (45-73); Platelet Count 259 X10*3/uL (160-400); Red Blood Count 4.87 X10*6/uL (4.60-5.80); Red Cell Distribution Width 13.3 % (11.0-16.0); White Blood Count 4.8 X10*3/uL (4.8-10.8)
[2024-01-18 07:58] LABS: Estimated Average Glucose 94 mg/dL; Hemoglobin A1c % 4.9 % (<6.0)
[2024-01-18 08:19] LABS: Alanine Aminotransferase 16 U/L (0-40); Albumin Level 4.3 g/dL (3.5-5.0); Alkaline Phosphatase 55 U/L (39-117); Anion Gap 13 (12-20); Aspartate Amino Transferase 17 U/L (5-37); Blood Urea Nitrogen 14 mg/dL (9-16); C Reactive Protein 0.15 mg/dL (< or = 0.50); Calcium 9.5 mg/dL (8.4-10.2); Carbon Dioxide 33 mmol/L (22-29); Chloride 102 mmol/L (96-108); Cholesterol 193 mg/dL (<200); Estimated Glomerular Filt Rate > 60; Glucose Random 88 mg/dL (60-115); HDL Cholesterol 73 mg/dL (>40); Iron 130 mcg/dL (45-160); LDL Cholesterol Calculated 113 mg/dL (<100); Percent Iron Saturation 47 % (15-50); Potassium 3.5 mmol/L (3.3-5.1); Sodium 144 mmol/L (135-145); Total Iron Binding Capacity 275 mcg/dL (228-428); Total Protein 7.1 g/dL (6.5-8.0); Triglycerides 35 mg/dL (<150); Unsaturated Iron Binding 145 ug/dL
[2024-01-18 08:43] LABS: Ferritin 307 ng/mL (20-250); Insulin 3 uU/mL (2-29); TSH reflex Free T4 1.75 uIU/mL (0.32-4.0); Vitamin D 25-OH Total 60.4 ng/mL (>30)
[2024-01-18 09:02] LABS: Folate 12.9 ng/mL (> or = 4.0); Vitamin B12 1284 pg/mL (200-900)
[2024-01-22 16:48] LABS: Zinc 121 mcg/dL (60-130)
[2024-01-23 02:33] LABS: Vitamin A 46 mcg/dL (38-98)
[2024-01-24 06:19] LABS: Vitamin B1 31 nmol/L (8-30)
== END 2024-01-18 07:08 | disposition home or self-care (01) ==
LOC: HO.LAB 07:07
PROVIDERS: PCP Internal Medicine; Visit Provider Physician Assistant Surgical
DX: Z98.84 Bariatric surgery status (principal)
CPT/HCPCS: 36415; 80053; 80061; 82306; 82607; 82728; 82746; 83036; 83525; 83540; 84425; 84443; 84590; 84630; 85025; 86140

== ENCOUNTER 2024-02-06 09:55 | Outpatient (AMB) | payer OTHER, SELFPAY ==
--- NOTE | 2024-02-06 10:34 | MHC.OFFVISWM ---
Intake Visit Reasons: (TELEPHONE) PO LSG 08/07/23 Allergies Penicillins [PENICILLINS] Allergy (Severe, Verified 09/07/23 08:13) RASH,THROAT CLOSING fexofenadine [From ENDY] Allergy (Intermediate, Verified 09/07/23 08:13) RASH Medication List - Last Reconciled 02/06/24 by COLE Galvan albuterol sulfate 90 mcg/actuation (ProAir HFA) 2 puffs inhalation Q6H PRN amlodipine 5 mg PO DAILY calcium citrate-vitamin D3 315 mg-5 mcg (200 unit) (Calcium Citrate + D) 1 tab PO BID fluticasone furoate-vilanterol 200-25 mcg/dose (Breo Ellipta) 1 inh inhalation DAILY levothyroxine (Synthroid) 150 mcg PO DAILY lbcxxbrotacn-opy-cxvk-FA-vit K 45 mg iron- 800 mcg-120 mcg (Bariatric Multivitamins) caps PO HPI Comments Details: This?is a?53?yo male who is s/p LSG 08/07/2023. Presents for 6 month post op visit. Weight at last visit on 12/10/2023 was 174 pounds with a BMI of 29, weight today is same.? No complaints of nausea, emesis, abdominal pain or reflux, or constipation. 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 Pt is very comfortable at current weight. Off sleep apnea machine. Needs 80 grams protein. 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 GERD: never SHANE:? resolved DM:? never HTN:? amlodipine Hyperlipidemia:?never Post op complications:?none PFSH Medical History COPD (chronic obstructive pulmonary disease) Sleep apnea treated with continuous positive airway pressure (CPAP) Morbid obesity Asthma Obesity Hypothyroidism Hypertension Surgical History Hx of laparoscopic partial gastrectomy Hx of eye surgery Hx of resection of rib History of umbilical hernia repair (~2015) History of colonoscopy (~2014) Social History Household Members: Spouse and Children Housing: House Are you a primary director of primary care to a significant other at home: No Do you presently have visiting nurse or other home services: No Patient Tobacco Use Status: Never used Tobacco Telehealth Telehealth Telehealth Platform: Telephone Location of provider rendering services: practice address Location of patient: address on file Patient Identification confirmed using: Name, : Yes Telehealth method: voice only Patient verbally consented to treatment: Yes Patient verbally consented to billing insurance company: Yes Patient informed of any privacy concerns related to visit: Yes Minutes spent on Phone/Video with Pt.: 15 Assessment & Plan Assessment & Plan (1) Overweight: Code(s): E66.3 - Overweight Category: Medical (2) S/P laparoscopic sleeve gastrectomy: Code(s): Z98.84 - Bariatric surgery status Category: Surgical Plan Pt is happy with current meal plan and very comfortable at current weight. [place] that his strength decreased too much when he weighed less. No changes to meal plan today. Labs reviewed, vitamin supplementation adequate. RTC 3-4 months per pt preference. Provided my work cell phone # for any concerns between appts. Patient is overweight and is not considered stable at this time. I spent a total of 30 minutes reviewing/updating records, examining the patient and counseling the patient on weight management as detailed above.
== END 2024-02-06 10:56 | disposition home or self-care (01) ==
PROVIDERS: PCP Internal Medicine; Visit Provider Physician Assistant Surgical
DX: E66.3 Overweight (principal); Z98.84 Bariatric surgery status
CPT/HCPCS: 99214

== ENCOUNTER → 2024-02-06 09:55 | Outpatient (BNVA) | payer OTHER, SELFPAY | PROVIDERS: PCP Internal Medicine; Visit Provider Physician Assistant Surgical ==

== ENCOUNTER → 2024-06-02 09:30 | Outpatient (BNVA) | payer OTHER, SELFPAY | PROVIDERS: PCP Internal Medicine; Visit Provider Physician Assistant Surgical ==

== ENCOUNTER 2024-09-08 13:55 | Outpatient (AMB) | payer OTHER, SELFPAY ==
--- NOTE | 2024-09-08 13:33 | MHC.OFFVISWM ---
VS Expanded 09/08/24 13:34 Height 5 ft 5 in Weight 177 lb BMI 29.5 Intake Visit Reasons: PO LSG 08/07/23 Allergies Penicillins [PENICILLINS] Allergy (Severe, Verified 09/07/23 08:13) RASH,THROAT CLOSING fexofenadine [From ENDY] Allergy (Intermediate, Verified 09/07/23 08:13) RASH Medication List - Last Reconciled 09/08/24 by COLE Galvan albuterol sulfate 90 mcg/actuation (ProAir HFA) 2 puffs inhalation Q6H PRN amlodipine 5 mg PO DAILY calcium citrate-vitamin D3 315 mg-5 mcg (200 unit) (Calcium Citrate + D) 1 tab PO BID fluticasone furoate-vilanterol 200-25 mcg/dose (Breo Ellipta) 1 inh inhalation DAILY levothyroxine (Synthroid) 150 mcg PO DAILY jiuowpodxxtf-bbv-aibo-FA-vit K 45 mg iron- 800 mcg-120 mcg (Bariatric Multivitamins) caps PO HPI Comments Details: This?is a?53?yo male who is s/p LSG 08/07/2023. Presents for 1 year post op visit. Weight stable since last visit 3 months ago.? No complaints of nausea, emesis, abdominal pain or reflux, or constipation. 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 Pt is very comfortable at current weight. Had been down to 162lbs but did not feel well at this weight. Off sleep apnea machine. Needs 80 grams protein. 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 GERD: never SHANE:? resolved DM:? never? HTN:? amlodipine- takes half pill- dose reduced Hyperlipidemia:? never Post op complications:? none Have you been diagnosed with reflux (GERD)? no Score 0-5: 0=no symptoms, 1=noticeable but not bothersome (slight or occasional), 2=noticeable, bothersome but not daily, 3=bothersome and daily, 4=affects daily activities, 5=incapacitating, unable to do daily activities How bad is the heartburn: 0 Heartburn when lying down: 0 Heartburn when standing up: 0 Heartburn after meals: 0 Does heartburn change your diet: 0 Does heartburn wake you up from sleep: 0 Do you have difficulty swallowin Do you have pain with swallowin If you take medication for reflux, does this affect your daily life: 0 Total score: 0 Pt reports problems of excess skin of abdomen. He also has excess skin of his upper chest. 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 Pt has to adjust clothing because skin gets in the way of dressing normally. [facility] Medical History COPD (chronic obstructive pulmonary disease) Sleep apnea treated with continuous positive airway pressure (CPAP) Morbid obesity Asthma Obesity Hypothyroidism Hypertension Surgical History Hx of laparoscopic partial gastrectomy Hx of eye surgery Hx of resection of rib History of umbilical hernia repair (~2015) History of colonoscopy (~2014) Social History Household Members: Spouse and Children Housing: House Are you a primary healthcare architect to a significant other at home: No Do you presently have visiting nurse or other home services: No Patient Tobacco Use Status: Never used Tobacco Telehealth Telehealth Telehealth Platform: Telephone Location of provider rendering services: practice address Location of patient: address on file Patient Identification confirmed using: Name, : Yes Telehealth method: voice only Patient verbally consented to treatment: Yes Patient verbally consented to billing insurance company: Yes Patient informed of any privacy concerns related to visit: Yes Minutes spent on Phone/Video with Pt.: 15 Assessment & Plan Assessment & Plan (1) Overweight: Code(s): E66.3 - Overweight Category: Medical (2) S/P laparoscopic sleeve gastrectomy: Code(s): Z98.84 - Bariatric surgery status Category: Surgical Plan Will have labs done in September when he comes for a visit with his PCP. He is interested in skin removal surgery potentially; he will send me a photo of his trunk/abdomen to determine amount of excess skin. Will base next appt around pt's decision whether to pursue panniculectomy; he will take some time to consider. I spent a total of 30 minutes reviewing/updating records, examining the patient and counseling the patient on weight management as detailed above.
[2024-09-08 13:34] VITALS: BMI 29.5
--- OUTSIDE RECORDS SUMMARY | 2024-09-08 13:58 | XMS_ITS ---
Author Organization Aston Fox MD Address [address] [place] [phone] Care Team Providers Care Diving Instructor Name Role Phone Aston Fox Primary Care Provider REASON FOR VISIT discharge Encounters Encounter Location Date Provider Diagnosis Aston Fox MD [address] [place] [address] [address] [place], [place] [phone] 08/09/2023 Aston Fox PLAN OF TREATMENT Next Appt Details Provider Name:Aston ordoñez, 09/30/2024 08:00:00 AM, [address] [place] [address], [place] [address], [place], [place], [phone], Provider Name:Aston ordoñez, 10/07/2024 09:30:00 AM, [address] [place] [address], [place] [address], [place], [place], [phone],
--- OUTSIDE RECORDS SUMMARY | 2024-09-08 13:58 | XMS_ITS ---
Author Organization Aston Fox MD Address [address] [place], [place] [phone] Care Team Providers Care Gold Miner Name Role Phone Aston Fox Primary Care Provider RESULTS Component Value Reference Range Notes Complete Blood Count Auto Di ff Reviewed date:07/30/2023 12:26:25 PM Interpretation: Performing Lab:[facility], [address] [place] [phone] Notes/Report: White Blood Count 6.3 4.8-10.8 X10*3/uL [...] NRBC Abs Auto 0.000 0.0-0.012 X10*3/uL Comprehensive [place]. Panel Fa st Reviewed date:07/30/2023 12:25:16 PM Interpretation: Performing Lab:[address] [phone] Notes/Report: Sodium 140 135-145 mmol/L Potassium 3.5 3.3-5.1 mmol/L Chloride 105 96-108 mmol/L Carbon Dioxide 27 22-29 mmol/L Anion Gap 12 12-20 Blood Urea Nitrogen 17 9-16 mg/dL Creatinine 0.76 0.5-1.4 mg/dL Estimated Glomerular Filt Rate > 60 NOTE: For -Wallisian individuals, multiply the result by 1.210. Chronic [...] Panel Reviewed date:07/30/2023 12:21:08 PM Interpretation: Performing Lab:[facility], [address] [place] [phone] Notes/Report: Triglycerides 94 <150 mg/dL Desirable Triglyceride: [...] (Free>4and<10) Reviewed date:07/30/2023 12:20:44 PM Interpretation: Performing Lab:[address] [phone] Notes/Report: PSA,Total (Free>4and<10) 1.19 0.00-4.00 ng/mL A [...] T4 Reviewed date:07/30/2023 12:20:03 PM Interpretation: Performing Lab:[address] [phone] Notes/Report: TSH reflex Free T4 1.00 0.32-4.0 uIU/mL Microalbumin, Random Reviewed date:07/30/2023 12:28:14 PM Interpretation: Performing Lab:[address] [id number] Notes/Report: Creatinine Urine 60.72 Microalbumin Urine 22.0 Microalbum/Creatinine Ratio Ur 36.2 <30 ug/mg cr Albumin/Creatinine Ratio Reference Ranges: Normal: < 30 ug/mg creatinine Microalbuminuria: 30 - 300 ug/mg creatinine Clinical Albuminuria: > 300 ug/mg creatinine Hemoglobin A1c Reviewed date:07/30/2023 12:20:35 PM Interpretation: Performing Lab:[facility], [address] [place] [phone] Notes/Report: Hemoglobin A1c % 5.0 <6.0 % [...] average glucose, using the formula of the C6H-Hndaqyd Average Glucose study (ADAG), Diabetes Care, Vol.31,#8, Apr. 2007 UA ClnCatch+Micro w/rflx Cul t Reviewed date:07/30/2023 12:33:22 PM Interpretation: Performing Lab:[facility], [address] [place] [phone] Notes/Report: [id number] Urine, Clean Catch Color Urine Yellow Appearance Urine Clear PH 7.0 5.0-9.0 Glucose Urine UA Negative Negative mg/dL Urine Blood Negative Negative Specific [place] - Urine 1.015 1.005-1.025 Urine Protein Negative Neg-Trace mg/dL Urine Ketones Negative Negative mg/dL Nitrite Urine Negative Negative Leukocyte Esterase Urine Negative Negative RBC Urine 0-2 0-2 /HPF WBC Urine 0-5 0-5 /HPF Squamous Epithelial Cell Urine 0-2 0-2 /HPF Bacteria Urine None Seen None Seen Hyaline Casts Urine 0-2 0-2 /LPF REASON FOR VISIT yearly labs IMMUNIZATIONS Vaccine Route Administration Date Status Comme nts Fluarix Quadrivalent IM Intramuscular 07/30/2023 Administe red Encounters Encounter Location Date Provider Diagnosis Aston Fox MD [address] [place] [address] Drive [address] [place], [place] [phone] 07/30/2023 Aston Fox Blood tests for routine general physical examination Z00.00 ; Essential hypertension I10 ; Prediabetes R73.09 ; Encounter for immunization Z23 ; Elevated LDL cholesterol level E78.00 and Acquired hypothyroidism E03.9 ASSESSMENTS Encounter Date Diagnosis Assessment Notes Treatment Notes Treatment Clinical Notes 07/30/2023 Blood tests for routine general physical examination (ICD-10 - Z00.00) 07/30/2023 Essential hypertension (ICD-10 - I10) 07/30/2023 Prediabetes (ICD-10 - R73.09) 07/30/2023 Encounter for immunization (ICD-10 - Z23) 07/30/2023 Elevated LDL cholesterol level (ICD-10 - E78.00) 07/30/2023 Acquired hypothyroidism (ICD-10 - E03.9) PLAN OF TREATMENT Next Appt Details Provider Name:Aston ordoñez, 09/30/2024 08:00:00 AM, [address] [place] [address], [place] [address], [place], [phone], Provider Name:Aston ordoñez, 10/07/2024 09:30:00 AM, [address] [place] [address], [place] [address], [place], [phone],
--- OUTSIDE RECORDS SUMMARY | 2024-09-08 13:58 | XMS_ITS ---
Author Organization Aston Fox MD Address [address] [place], [place] [id number] Care Team Providers Care Track Inspecting Supervisor Name Role Phone Aston Fox Primary Care Provider [phone] ALLERGIES Allergen (clinical drug ingredient) Drug/Non Drug Allergy documented on EMR Reaction Allergy Type Onset Date Status Joceline (uncoded) rash Allergy Ac tive Penicillin (uncoded) rash Allergy Active REASON FOR VISIT annual visit, No Covid symptoms MEDICATIONS Medication SIG (Take, Route, Frequency, Duration) Notes Start Date End Date Status Omeprazole 20 MG 1 capsule 30 minutes before morning meal Orally Once a day for 30 day(s) 07/21/2019 Not-Taking Albuterol Sulfate (2.5 MG/3ML) 0.083% 3 ml as needed Inhalation every 4 hrs for 30 days 04/04/2021 Not-Taking Wixela Inhub 250-50 MCG/ACT 1 puff Inhalation Twice a day 04/21/2022 Active Fluticasone Propionate 50 MCG/ACT 1 spray in each nostril Nasally Once a day for 30 day(s) 06/11/2023 Not-Taking Benzonatate 200 MG 1 capsule Orally Thr ee times a day for 10 days 05/01/2023 Not-Taking amLODIPine Besylate 10 MG TAKE 0.5 TABLE T BY MOUTH EVERY DAY FOR 90 DAYS Orally Once a day Active Albuterol Sulfate HFA 108 (90 Base) MCG/ACT 1 puff as needed Inhalation every 4 hrs 05/08/2023 Active Levothyroxine Sodium 150 MCG TAKE 1 TABLET BY MOUTH EVERY DAY IN THE MORNING Active Dulera 200-5 MCG/ACT 2 puffs Inhalation Twice a day 06/12/2023 Active SOCIAL HISTORY Tobacco Use: Social History Observation [...] Never (0 point) Points 2 Interpretation Negative VITAL SIGNS BMI 30.99 kg/m2 10/05/2023 Blood pressure systolic 122 mm Hg 10/05/19 24 Blood pressure diastolic 80 mm Hg 024 Height 66 in 10/05/2023 Weight 192 lbs 10/05/2023 weight is down 56 pounds [facility] 9-18-23 Encounters Encounter Location Date Provider Diagnosis Aston Fox MD [address] [place] [address] [place] [id number] 10/05/2023 Aston Fox SHANE (obstructive sle ep apnea) G47.33 ; Annual physical exam Z00.00 ; Acquired hypothyroidism E03.9 ; Essential hypertension I10 ; Mild intermittent asthma without complication J45.20 ; Prediabetes R73.09 ; Colon cancer screening Z12.11 and Depression screening Z13.31 ASSESSMENTS Encounter Date Diagnosis Assessment Notes Treatment Notes Treatment Clinical Notes 10/05/2023 SHANE (obstructive sleep apnea) (ICD-10 - G47.33) has resolved with weight loss 10/05/2023 Annual physical exam (ICD-10 - Z00.00) labs reviewed and discussed with patient 10/05/2023 Acquired hypothyroidism (ICD-10 - E03.9) tsh good, will continue current regiment 10/05/2023 Essential hypertension (ICD-10 - I10) taking one half amlodipine, will continue current regiment 10/05/2023 Mild intermittent asthma without complication (ICD-10 - J45.20) no longer bothered 10/05/2023 Prediabetes (ICD-10 - R73.09) great a1c, no need for medication at this time 10/05/2023 Colon cancer screening (ICD-10 - Z12.11) guaiac negative 10/05/2023 Depression screening (ICD-10 - Z13.31) negative screen PLAN OF TREATMENT Medication Medication Name Sig Start Date Stop Date Notes Wixela Inhub 250-50 MCG/ACT 1 puff Inhal ation Twice a day 04/21/2022 amLODIPine Besylate 10 MG TAKE 0.5 TABLE T BY MOUTH EVERY DAY FOR 90 DAYS Orally Once a day Albuterol Sulfate HFA 108 (9 0 Base) MCG/ACT 1 puff as needed Inhalation every 4 hrs 05/08/2023 Levothyroxine Sodium 150 MCG TAKE 1 TABL ET BY MOUTH EVERY DAY IN THE MORNING Dulera 200-5 MCG/ACT 2 puffs Inhalation Twice a day 06/12/2023 Treatment Notes Assessment Notes SHANE (obstructive sleep apnea) has resolv ed with weight loss Annual physical exam labs reviewed and d iscussed with patient Acquired hypothyroidism tsh good, will c ontinue current regiment Essential hypertension taking one half a mlodipine, will continue current regiment Mild intermittent asthma without complic ation no longer bothered Prediabetes great a1c, no need f or medication at this time Colon cancer screening guaiac negative Depression screening negative screen Next Appt Details Follow Up: 1 Year, Reason: Provider Name:Aston ordoñez, 09/30/2024 08:00:00 AM, [address] [place] [address], [address], [phone], Provider Name:Aston ordoñez, 10/07/2024 09:30:00 AM, [address] [place] [address], [address], [phone], Progress Notes * Examination Category Sub-Category Detail Notes General Examination GENERAL APPEARANCE: well dev eloped, well nourished, in no acute distress HEAD: normocephalic, atrau matic EYES: pupils equal, round, reactive to light and accommodation, sclera non- icteric EARS: normal THROAT: clear NECK/THYROID: neck supple, full ra nge of motion, no cervical lymphadenopathy, no bruits HEART: regular rate and rhy thm, S1, S2 normal, no murmurs LUNGS: clear to auscultatio n bilaterally ABDOMEN: soft, nontender, non distended, bowel sounds present, normal, no organomegaly , no masses palpable NEUROLOGIC: nonfocal, motor stre ngth normal upper and lower extremities, sensory exam intact SKIN: warm and dry, no ofelia picious lesions EXTREMITIES: no clubbing, cyanosi s, or edema MALE GENITOURINARY: circumcised, no test icular mass, testes descended bilaterally RECTAL EXAM: normal tone, no exte rnal hemorrhoids, no masses palpable, prostate normal, stool guaiac negative ORAL CAVITY: mucosa moist History and Physical Notes * HPI (History of Present Illness) Category Sub-Category Detail Notes Depression Screening PHQ-9 Little inte rest or pleasure in doing things: Not at all Feeling down, depressed, or hopeless: No t at all Trouble falling or staying asleep, or sl eeping too much: Not at all Feeling tired or having little energy: N ot at all Poor appetite or overeating: Not at all Feeling bad about yourself o r that you are a failure, or have let yourself or your family down: Not at all Trouble concentrating on thi ngs, such as reading the newspaper or watching television: Not at all Moving or speaking so slowly that other people could have noticed; or the opposite, being so fidgety or restless that you have been moving around a lot more than usual: Not at all Thoughts that you would be b antonia off or of hurting yourself in some way: Not at all Total Score: 0 Interpretation and Intervention Depression Anna molina Findings: Negative Follow-Up for Depression: : review of PH Q-9 found negative result, no follow-up needed SDOH Questions SDOH Questions In the past year have you been worried about losing housing?: No In the past year have you or any family members you live with been unable to get any of the following when it was really needed? Check all that apply:: None Communication Needs Communication Needs Does the patient have a hearing impairment: No Does the patient have a vision impairmen t?: Yes ?If yes, what is the vision impairment?: Glasses Does the patient have a cognition impair ment?: No
--- OUTSIDE RECORDS SUMMARY | 2024-09-08 13:59 | XMS_ITS | Patient Health Record ---
Author Organization [facility] Address [address] [place] [address] Care Team Providers Care Comprehensive Ophthalmologist Name Role Phone Ruddy VILLARREAL, Aston Primary [...] Abnormal findings in stool (792.1) Active confirmed 588732429 Problem Rectal bleeding (569.3) Active confirmed [id number] PLAN OF TREATMENT Future Test Test Name Order Date COLONOSCOPY 10/28/2014 Insurance Providers Payer Name Payer Address Payer Phone Subscriber Number Group Number Insured Name Patient Relationship to Insured Coverage Start Date Coverage End Date [facility] [address] [place] [place] [phone] [id number] ANNA STEIN Self - patient is the insured MEDICAL (GENERAL) HISTORY Medical History History ICD Code Denies ND,DM,CVA,renal disease asthma hypertension Surgical History Surgery Date(Month/Year) lower back surgery eye surgery
--- OUTSIDE RECORDS SUMMARY | 2024-09-08 13:59 | XMS_ITS | Patient Health Record ---
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 Name Role Phone Aston Fox Primary Care Provider ALLERGIES Allergen (clinical drug ingredient) Drug/Non Drug Allergy documented on EMR Reaction Allergy Type Onset Date Status Joceline (uncoded) rash Allergy Ac tive Penicillin (uncoded) rash Allergy Active RESULTS Component Value Reference Range Notes Complete Blood Count Auto Di ff Reviewed date:01/18/2024 10:01:30 AM Interpretation: Performing Lab:[facility], [address] [place] [phone] Notes/Report: White Blood Count 4.8 4.8-10.8 X10*3/uL Red Blood Count 4.87 4.60-5.80 X10*6/uL Hemoglobin 14.9 14.0-18.0 g/dl Hematocrit 43.8 42.0-52.0 % Mean Corpuscular Volume 89.9 80.0-98.0 fL Mean Corpuscular Hemoglobin 30.6 27.0-33.0 pg Mean Corpuscular HGB Conc 34.0 31.0-36.0 g/dl Red Cell Distribution Width 13.3 11.0-16.0 % Platelet Count 259 160-400 X10*3/uL Mean Platelet Volume 10.4 9.4-12.4 fL Neutrophils Percent Auto 56.8 45-73 % Imm Gran Pct Auto 0.2 0.0-0.4 % Lymphocytes Percent Auto 26.7 20-40 % Monocytes Percent Auto 10.4 2-11 % Eosinophils Percent Auto 4.2 0-4 % Basophils Percent Auto 1.7 0-2 % NRBC Pct Auto 0.0 0.0-0.2 /100WBC Neutrophils Absolute Auto 2.7 2.0-8.3 x10*3/u L Imm Gran Abs Auto 0.01 0.00-0.03 X10*3/uL Lymphocytes Absolute Auto 1.3 1.2-4.9 X10*3/u L Monocytes Absolute Auto 0.5 0.1-1.2 X10*3/uL Eosinophils Absolute Auto 0.2 0.0-0.4 X10*3/u L Basophils Absolute Auto 0.1 0.0-0.2 X10*3/uL NRBC Abs Auto 0.000 0.0-0.012 X10*3/uL Comprehensive Met. Panel Reviewed date:01/18/2024 10:01:30 AM Interpretation: Performing Lab:[facility], [address] [place] [phone] Notes/Report: Sodium 144 135-145 mmol/L Potassium 3.5 3.3-5.1 mmol/L Chloride 102 96-108 mmol/L Carbon Dioxide 33 22-29 mmol/L Anion Gap 13 12-20 Blood Urea Nitrogen 14 9-16 mg/dL Creatinine 0.69 0.5-1.4 mg/dL Estimated Glomerular Filt Rate > 60 NOTE: For -Greek individuals, multiply the result by 1.210. Chronic Kidney Disease: Estimated GFR < 60 mL/min/1.73m2 Severe Kidney Disease: Estimated GFR < 15 mL/min/1.73m2 Glucose Random 88 60-115 mg/dL Calcium 9.5 8.4-10.2 mg/dL Bilirubin Total 1.0 0.0-1.0 mg/dL Aspartate Amino Transferase 17 5-37 U/L Alanine Aminotransferase 16 0-40 U/L Total Protein 7.1 6.5-8.0 g/dL Albumin Level 4.3 3.5-5.0 g/dL Alkaline Phosphatase 55 39-117 U/L IRON PROFILE Reviewed date:01/18/2024 10:01:30 AM Interpretation: Performing Lab:[address] [phone] Notes/Report: Iron 130 45-160 mcg/dL Total Iron Binding Capacity 275 228-428 mcg/d L Percent Iron Saturation 47 15-50 % Unsaturated Iron Binding 145 Ferritin Reviewed date:01/18/2024 10:01:30 AM Interpretation: Performing Lab:[address] [phone] Notes/Report: Ferritin 307 20-250 ng/mL C Reactive Protein Reviewed date:01/18/2024 10:01:30 AM Interpretation: Performing Lab:[facility], [address] [place] [phone] Notes/Report: C Reactive Protein 0.15 < or = 0.50 mg/dL Lipid Panel Reviewed date:01/18/2024 10:01:30 AM Interpretation: Performing Lab:[address] [phone] Notes/Report: Triglycerides 35 <150 mg/dL Desirable Triglyceride: less than 150 mg/dL Borderline High Triglyceride 150-199 mg/dL High Triglyceride: 200-499 mg/dL Very High Triglyceride: greater than or equal to 5OO mg/dL Cholesterol 193 <200 mg/dL Desirable Cholesterol: less than 200 mg/dL Borderline High Cholesterol: 200-239 mg/dL High Cholesterol: greater than 239 mg/dL LDL Cholesterol Calculated 113 <100 mg/dL Desirable LDL: less than 100 mg/dL Near Optimal/Above Optimal LDL: 110-129 mg/dL Borderline High LDL: 130-159 mg/dL High LDL: 160-189 mg/dL Very High LDL: greater than or equal to 190 mg/dL HDL Cholesterol 73 >40 mg/dL Desirable HDL: greater than 40 mg/dL Note: This HDL assay may give artificially low results in patients with liver disease. Vitamin B12 and Folate Reviewed date:01/18/2024 10:01:30 AM Interpretation: Performing Lab:[facility], [address] [place] [phone] Notes/Report: Vitamin B12 1284 200-900 pg/mL NORMAL 200-900 PG/ML INDETERMINATE 160-199 PG/ML DEFICIENT < 160 PG/ML Folate 12.9 > or = 4.0 ng/mL Reference Values: > or = 4.0 ng/mL < 4.0 ng/mL suggests folate deficiency Methotrexate, aminopterin and folinic acid (leucovorin) are chemotherapeutic agents whose molecular structures are similar to folate; therefore, the Manager Operations folate assay cannot be used for patients using these drugs. Vitamin A Reviewed date:01/24/2024 08:49:06 AM Interpretation: Performing Lab:[facility], [address] [place] [phone] Notes/Report: Vitamin A 46 38-98 mcg/dL Vitamin supplementation within 24 hours prior to blood draw may affect the accuracy of the results. This test was developed and its analytical performance characteristics have been determined by [facility] [place], [place]. It has not been cleared or approved by the U.S. Food and Drug Administration. This assay has been validated pursuant to the CLIA regulations and is used for clinical purposes. THIS TEST WAS PERFORMED AT: [facility]/[address] MATTHEW MANDEL MD,PHD Vitamin B1 Reviewed date:01/24/2024 08:49:06 AM Interpretation: Performing Lab:[facility], [address] [place] [phone] Notes/Report: Vitamin B1 31 8-30 nmol/L Vitamin supplementation within 24 hours prior to blood draw may affect the accuracy of the results. This test was developed and its analytical performance characteristics have been determined by [facility] [place] [place]. It has not been cleared or approved by the U.S. Food and Drug Administration. This assay has been validated pursuant to the CLIA regulations and is used for clinical purposes. THIS TEST WAS PERFORMED AT: [facility] [id number] [place] [address] MATTHEW MANDEL MD,PHD Vitamin D 25-OH Total Reviewed date:01/18/2024 10:01:30 AM Interpretation: Performing Lab:[address] [phone] Notes/Report: Vitamin D 25-OH Total 60.4 >30 ng/mL Health Based Reference Values* < [...] as LC-MS/MS. TSH reflex Free T4 Reviewed date:01/18/2024 10:01:30 AM Interpretation: Performing Lab:[address] [phone] Notes/Report: TSH reflex Free T4 1.75 0.32-4.0 uIU/mL Zinc Reviewed date:01/24/2024 08:49:06 AM Interpretation: Performing Lab:[address] [phone] Notes/Report: Zinc 121 60-130 mcg/dL This test was developed and its analytical performance characteristics have been determined by [facility] [place] [place]. It has not been cleared or approved by the U.S. Food and Drug Administration. This assay has been validated pursuant to the CLIA regulations and is used for clinical purposes. THIS TEST WAS PERFORMED AT: [facility] [id number] [place] [phone] MATTHEW MANDEL MD,PHD Hemoglobin A1c Reviewed date:01/18/2024 10:01:30 AM Interpretation: Performing Lab:[address] [phone] Notes/Report: Hemoglobin A1c % 4.9 <6.0 % [...] average glucose, using the formula of the N0F-[employer] Average Glucose study (ADAG), Diabetes Care, Vol.31,#8, 2007 Insulin Reviewed date:01/18/2024 10:01:30 AM Interpretation: Performing Lab:[address] [place] [address] Notes/Report: Insulin 3 2-29 uU/mL This test was performed using the Benz chemiluminescent method. Values obtained from different assay methods cannot be used interchangeably. This insulin assay shows a possible cross-reactivity with antibodies generated against insulin (immunoreactive insulin and some patients treated with bovine or porcine insulin). Insulin levels may be measured lower in patients with insulin autoimmune syndrome or familial high pro-insulinemia. REASON FOR REFERRAL No Information MEDICATIONS Medication SIG (Take, Route, Frequency, Duration) Notes Start Date End Date Status Benzonatate 200 MG 1 capsule Orally Thr ee times a day for 10 days 05/01/2023 Not-Taking Ventolin HFA 108 (90 Base) MCG/ACT INHALE 1 PUFF INTO THE LUNGS EVERY 4 HOURS NEEDED FOR 30 DAYS for 30 Active Omeprazole 20 MG 1 capsule 30 minutes before morning meal Orally Once a day for 30 day(s) 07/21/2019 Not-Taking Albuterol Sulfate (2.5 MG/3ML) 0.083% 3 ml as needed Inhalation every 4 hrs for 30 days 04/04/2021 Not-Taking amLODIPine Besylate 10 MG TAKE 1 TABLET BY MOUTH EVERY DAY FOR 90 DAYS for 90 Active Wixela Inhub 250-50 MCG/ACT 1 puff Inhalation Twice a day 04/21/2022 Active Levothyroxine Sodium 150 MCG TAKE 1 TABLET BY MOUTH EVERY DAY IN THE MORNING for 90 Active Fluticasone Propionate 50 MCG/ACT USE 1 SPRAY INTO EACH NOSTRIL EVERY DAY FOR 30 DAYS for 90 Active Dulera 200-5 MCG/ACT INHALE 2 PUFFS INTO THE LUNGS TWICE A DAY FOR 30 DAYS for 30 Active Irbesartan-hydroCHLOROthia zide 150-12.5 MG TAKE 1 TABLET BY MOUTH EVERY DAY FOR 30 DAYS ORALLY ONCE A DAY 90 DAYS for 90 Active IMMUNIZATIONS Vaccine Route Administration Date Status [...] Notes Problem Reflux esophagitis (K21.00) Active confirmed 733459090 Problem Gynecomastia, male (N62) Active confirmed 1394561 Problem Essential hypertension (I10) Active confirmed 24944063 Problem Acquired hypothyroidism (E03.9) Active confirmed 907906517 Problem Mild intermittent asthma without complication (J45.20) Active confirmed 244147956 Problem Prediabetes (R73.09) Active confirmed 1807347 Problem Migraine with aura and without status migrainosus, not intractable (G43.109) Active confirmed 0220244 Problem Obstructive sleep apnea (G47.33) Active confirmed Obstructive sleep apnea (39050784) Problem Elevated LDL cholesterol level (E78.00) Active confirmed 321150437 Problem SHANE (obstructive sleep apnea) (G47.33) Active confirmed 81601555 Problem BMI 40.0-44.9, adult (Z68.41) Active confirmed Body mass index 40+ - morbidly obese (116533467) Problem Closed fracture of multiple ribs of [...] Location Date Provider Diagnosis Aston Fox MD [address] [place] [address] [address] [place], [place] [phone] 10/05/2023 Aston Fox SHANE (obstructive sle ep [...] G47.33) has resolved with weight loss 10/05/2023 Acquired hypothyroidism (ICD-10 - E03.9) tsh [...] Provider Name:Aston Hodge ier, 09/30/2024 08:00:00 AM, [address], [address], [place], [place], [phone], Provider Name:Aston Hodge ier, 10/07/2024 09:30:00 AM, [address], [address], [place], [place], [phone], Insurance Providers Payer Name Payer Address Payer Phone Subscriber Number Group Number Insured Name Patient Relationship to Insured Coverage Start Date Coverage End Date [facility] [address] [address] [place] [phone] [id number] Asaf Wynn Self - patient is the insured [facility] [address] [place] [address] [id number] Asaf Wynn Self - patient is the insured MEDICAL (GENERAL) HISTORY Medical History History ICD Code had been on flovent alone with no improv ement Colonoscopy- done 12/09/[address] Natalia rodriguez - repeat 10 years
== END 2024-09-08 14:01 | disposition home or self-care (01) ==
LOC: HO.HBS 13:55
PROVIDERS: PCP Internal Medicine; Visit Provider Physician Assistant Surgical
DX: E66.3 Overweight (principal); Z68.29 Body mass index [BMI] 29.0-29.9, adult; Z90.3 Acquired absence of stomach [part of]; Z98.84 Bariatric surgery status
CPT/HCPCS: 99214; G2211

== ENCOUNTER 2024-09-29 07:13 | Outpatient (REF) | payer OTHER, SELFPAY ==
[2024-09-29 07:36] LABS: MANUAL DIFF FLAG NO
[2024-09-29 08:19] LABS: Basophils Absolute Auto 0.1 X10*3/uL (0.0-0.2); Basophils Percent Auto 1.4 % (0-2); Eosinophils Absolute Auto 0.2 X10*3/uL (0.0-0.4); Hematocrit 40.7 % (42.0-52.0); Imm Gran Abs Auto 0.07 X10*3/uL (0.00-0.03); Imm Gran Pct Auto 1.4 % (0.0-0.4); Lymphocytes Absolute Auto 1.3 X10*3/uL (1.2-4.9); Mean Corpuscular HGB Conc 34.4 g/dl (31.0-36.0); Mean Platelet Volume 10.7 fL (9.4-12.4); Monocytes Absolute Auto 0.6 X10*3/uL (0.1-1.2); Monocytes Percent Auto 10.9 % (2-11); Neutrophils Absolute Auto 2.9 x10*3/uL (2.0-8.3); Neutrophils Percent Auto 58.3 % (45-73); Platelet Count 223 X10*3/uL (160-400); Red Blood Count 4.52 X10*6/uL (4.60-5.80); Red Cell Distribution Width 12.8 % (11.0-16.0)
[2024-09-29 09:01] LABS: Estimated Average Glucose 88 mg/dL; Hemoglobin A1c % 4.7 % (<6.0); Total Hemoglobin (HGBA1C) 3747.1924 umol/L
[2024-09-29 09:45] LABS: Alanine Aminotransferase 17 U/L (0-40); Albumin Level 4.2 g/dL (3.5-5.0); Alkaline Phosphatase 54 U/L (39-117); Anion Gap 11 (12-20); Aspartate Amino Transferase 20 U/L (5-37); Blood Urea Nitrogen 14 mg/dL (9-16); C Reactive Protein < 0.10 mg/dL (< or = 0.50); Calcium 8.8 mg/dL (8.4-10.2); Carbon Dioxide 28 mmol/L (22-29); Chloride 106 mmol/L (96-108); Cholesterol 170 mg/dL (<200); Estimated Glomerular Filt Rate > 60; Glucose Random 88 mg/dL (60-115); HDL Cholesterol 67 mg/dL (>40); Iron 121 mcg/dL (45-160); LDL Cholesterol Calculated 95 mg/dL (<100); Percent Iron Saturation 42 % (15-50); Potassium 3.1 mmol/L (3.3-5.1); Sodium 142 mmol/L (135-145); Total Iron Binding Capacity 285 mcg/dL (228-428); Total Protein 6.8 g/dL (6.5-8.0); Triglycerides 41 mg/dL (<150); Unsaturated Iron Binding 164 ug/dL
[2024-09-29 09:49] LABS: Ferritin 231 ng/mL (20-250); TSH reflex Free T4 2.24 uIU/mL (0.32-4.0); Vitamin D 25-OH Total 57.7 ng/mL (>30)
[2024-09-29 11:55] LABS: Folate 16.8 ng/mL (> or = 4.0); Vitamin B12 1722 pg/mL (200-900)
[2024-09-29 11:57] LABS: Insulin 4 uU/mL (2-29)
[2024-10-02 22:57] LABS: Vitamin A 61 mcg/dL (38-98)
[2024-10-02 23:43] LABS: Zinc 74 mcg/dL (60-130)
[2024-10-05 15:29] LABS: Vitamin B1 43 nmol/L (8-30)
== END 2024-09-29 07:14 | disposition home or self-care (01) ==
LOC: HO.LAB 07:13
PROVIDERS: PCP Internal Medicine; Visit Provider Physician Assistant Surgical
DX: Z98.84 Bariatric surgery status (principal)
CPT/HCPCS: 36415; 80053; 80061; 82306; 82607; 82728; 82746; 83036; 83525; 83540; 84425; 84443; 84590; 84630; 85025; 86140

== ENCOUNTER 2024-09-29 10:45 | Outpatient (REF) | payer OTHER, SELFPAY ==
[2024-09-29 11:03] LABS: MANUAL DIFF FLAG NO
[2024-09-29 12:04] LABS: Basophils Absolute Auto 0.1 X10*3/uL (0.0-0.2); Basophils Percent Auto 1.4 % (0-2); Eosinophils Absolute Auto 0.2 X10*3/uL (0.0-0.4); Eosinophils Percent Auto 3.6 % (0-4); Hematocrit 42.5 % (42.0-52.0); Hemoglobin 14.4 g/dl (14.0-18.0); Imm Gran Abs Auto 0.04 X10*3/uL (0.00-0.03); Imm Gran Pct Auto 0.7 % (0.0-0.4); Lymphocytes Absolute Auto 1.4 X10*3/uL (1.2-4.9); Lymphocytes Percent Auto 25.1 % (20-40); Mean Corpuscular HGB Conc 33.9 g/dl (31.0-36.0); Mean Corpuscular Hemoglobin 31.2 pg (27.0-33.0); Mean Corpuscular Volume 92.2 fL (80.0-98.0); Mean Platelet Volume 11.2 fL (9.4-12.4); Monocytes Absolute Auto 0.8 X10*3/uL (0.1-1.2); Monocytes Percent Auto 13.5 % (2-11); Neutrophils Absolute Auto 3.1 x10*3/uL (2.0-8.3); Neutrophils Percent Auto 55.7 % (45-73); Platelet Count 227 X10*3/uL (160-400); Red Blood Count 4.61 X10*6/uL (4.60-5.80); Red Cell Distribution Width 13.2 % (11.0-16.0); White Blood Count 5.6 X10*3/uL (4.8-10.8)
--- OUTSIDE RECORDS SUMMARY | 2024-09-29 12:04 | XMS_ITS ---
Author Organization Aston Fox MD Address [address] [place], [place] [phone] Care Team Providers Care Business Intelligence Administrator Name Role Phone Aston Fox Primary Care Provider [phone] ALLERGIES Allergen (clinical drug ingredient) Drug/Non Drug [...] lbs 10/05/2023 weight is down 56 pounds [facility] emergency department 9-18-23 Encounters Encounter Location Date Provider Diagnosis Aston Fox MD [address] [place] [address] [place] [phone] 10/05/2023 Aston Fox SHANE (obstructive sle ep [...] Up: 1 Year, Reason: Provider Name:Aston ordoñez, 10/07/2024 09:30:00 AM, [address] [place] [address], [address], [place], [place], [phone], Progress Notes * Examination Category Sub-Category Detail [...]
--- OUTSIDE RECORDS SUMMARY | 2024-09-29 12:04 | XMS_ITS ---
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
--- OUTSIDE RECORDS SUMMARY | 2024-09-29 12:04 | XMS_ITS | Patient Health Record ---
Author Organization Aston Fox MD Address [address] [place], [place] [id number] Care Team Providers Care Tile Erector Name Role Phone Aston Fox Primary Care Provider ALLERGIES Allergen (clinical drug ingredient) Drug/Non Drug Allergy documented on EMR Reaction Allergy Type Onset Date Status Joceline (uncoded) rash Allergy Ac tive Penicillin (uncoded) rash Allergy Active RESULTS Component Value Reference Range Notes Complete Blood Count Auto Di ff Reviewed date:01/18/2024 10:01:30 AM Interpretation: Performing Lab:[facility], [address] [place] [phone] Notes/Report: White Blood Count 4.8 4.8-10.8 X10*3/uL [...] Panel Reviewed date:01/18/2024 10:01:30 AM Interpretation: Performing Lab:[facility], [address] [place] [phone] Notes/Report: Sodium 144 135-145 mmol/L Potassium 3.5 3.3-5.1 mmol/L Chloride 102 96-108 mmol/L Carbon Dioxide 33 22-29 mmol/L Anion Gap 13 12-20 Blood Urea Nitrogen 14 9-16 mg/dL Creatinine 0.69 0.5-1.4 mg/dL Estimated Glomerular Filt Rate > 60 NOTE: For -Tristanian individuals, multiply the result by 1.210. Chronic [...] PROFILE Reviewed date:01/18/2024 10:01:30 AM Interpretation: Performing Lab:[address] [phone] Notes/Report: Iron 130 45-160 mcg/dL Total Iron Binding Capacity 275 228-428 mcg/d L Percent Iron Saturation 47 15-50 % Unsaturated Iron Binding 145 Ferritin Reviewed date:01/18/2024 10:01:30 AM Interpretation: Performing Lab:[address] [phone] Notes/Report: Ferritin 307 20-250 ng/mL C Reactive Protein Reviewed date:01/18/2024 10:01:30 AM Interpretation: Performing Lab:[facility], [address] [place] [phone] Notes/Report: C Reactive Protein 0.15 < or = 0.50 mg/dL Lipid Panel Reviewed date:01/18/2024 10:01:30 AM Interpretation: Performing Lab:[address] [phone] Notes/Report: Triglycerides 35 <150 mg/dL Desirable Triglyceride: [...] Folate Reviewed date:01/18/2024 10:01:30 AM Interpretation: Performing Lab:[facility], [address] [place] [phone] Notes/Report: Vitamin B12 1284 200-900 pg/mL NORMAL 200-900 PG/ML INDETERMINATE 160-199 PG/ML DEFICIENT < 160 PG/ML Folate 12.9 > or = 4.0 ng/mL Reference Values: > or = 4.0 ng/mL < 4.0 ng/mL suggests folate deficiency Methotrexate, aminopterin and folinic acid (leucovorin) are chemotherapeutic agents whose molecular structures are similar to folate; therefore, the Roller Turner folate assay cannot be used for patients using these drugs. Vitamin A Reviewed date:01/24/2024 08:49:06 AM Interpretation: Performing Lab:[facility], [address] [place] [phone] Notes/Report: Vitamin A 46 38-98 mcg/dL Vitamin supplementation within 24 hours prior to blood draw may affect the accuracy of the results. This test was developed and its analytical performance characteristics have been determined by [employer] [place], [place]. It has not been cleared or approved by the U.S. Food and Drug Administration. This assay has been validated pursuant to the CLIA regulations and is used for clinical purposes. THIS TEST WAS PERFORMED AT: [facility]/[address] MATTHEW MANDEL MD,PHD Vitamin B1 Reviewed date:01/24/2024 08:49:06 AM Interpretation: Performing Lab:[facility], [address] [place] [phone] Notes/Report: Vitamin B1 31 8-30 nmol/L Vitamin supplementation within 24 hours prior to blood draw may affect the accuracy of the results. This test was developed and its analytical performance characteristics have been determined by [employer] [place], [place]. It has not been cleared or approved by the U.S. Food and Drug Administration. This assay has been validated pursuant to the CLIA regulations and is used for clinical purposes. THIS TEST WAS PERFORMED AT: [facility] [id number] [place] [address] MATTHEW MANDEL MD,PHD Vitamin D 25-OH Total Reviewed date:01/18/2024 10:01:30 AM Interpretation: Performing Lab:[address] [phone] Notes/Report: Vitamin D 25-OH Total 60.4 >30 [...] T4 Reviewed date:01/18/2024 10:01:30 AM Interpretation: Performing Lab:[address] [phone] Notes/Report: TSH reflex Free T4 1.75 0.32-4.0 uIU/mL Zinc Reviewed date:01/24/2024 08:49:06 AM Interpretation: Performing Lab:[address] [phone] Notes/Report: Zinc 121 60-130 mcg/dL This test was developed and its analytical performance characteristics have been determined by [employer] [facility] [place], [place]. It has not been cleared or approved by the U.S. Food and Drug Administration. This assay has been validated pursuant to the CLIA regulations and is used for clinical purposes. THIS TEST WAS PERFORMED AT: [facility] [id number] [place] [phone] MATTHEW MANDEL MD,PHD Hemoglobin A1c Reviewed date:01/18/2024 10:01:30 AM Interpretation: Performing Lab:[address] [phone] Notes/Report: Hemoglobin A1c % 4.9 <6.0 % [...] average glucose, using the formula of the [id number]-Idmhwtx Average Glucose study (ADAG), Diabetes Care, Vol.31,#8, 2007 Insulin Reviewed date:01/18/2024 10:01:30 AM Interpretation: Performing Lab:[address] [place] [address] Notes/Report: Insulin 3 2-29 uU/mL This test was performed using the Benz chemiluminescent method. Values obtained from different assay methods cannot be used interchangeably. This insulin assay shows a possible cross-reactivity with antibodies generated against insulin (immunoreactive insulin and some patients treated with bovine or porcine insulin). Insulin levels may be measured lower in patients with insulin autoimmune syndrome or familial high pro-insulinemia. Comprehensive Met. Panel (No t yet reviewed by provider) Interpretation: Performing Lab:[address] [phone] Notes/Report: Sodium 142 135-145 mmol/L Potassium 3.1 3.3-5.1 mmol/L Chloride 106 96-108 mmol/L Carbon Dioxide 28 22-29 mmol/L Anion Gap 11 12-20 Blood Urea Nitrogen 14 9-16 mg/dL Creatinine 0.73 0.5-1.4 mg/dL Estimated Glomerular Filt Rate > 60 Chronic Kidney Disease: Estimated GFR < 60 mL/min/1.73m2 Severe Kidney Disease: Estimated GFR < 15 mL/min/1.73m2 Glucose Random 88 60-115 mg/dL Calcium 8.8 8.4-10.2 mg/dL Bilirubin Total 1.0 0.0-1.0 mg/dL Aspartate Amino Transferase 20 5-37 U/L Alanine Aminotransferase 17 0-40 U/L Total Protein 6.8 6.5-8.0 g/dL Albumin Level 4.2 3.5-5.0 g/dL Alkaline Phosphatase 54 39-117 U/L IRON PROFILE (Not yet review ed by provider) Interpretation: Performing Lab:[address] [phone] Notes/Report: Iron 121 45-160 mcg/dL Total Iron Binding Capacity 285 228-428 mcg/d L Percent Iron Saturation 42 15-50 % Unsaturated Iron Binding 164 Ferritin (Not yet reviewed b y provider) Interpretation: Performing Lab:[address] [phone] Notes/Report: Ferritin 231 20-250 ng/mL C Reactive Protein (Not yet reviewed by provider) Interpretation: Performing Lab:[address] [phone] Notes/Report: C Reactive Protein < 0.10 < or = 0.50 mg/dL Vitamin B12 and Folate (Not yet reviewed by provider) Interpretation: Performing Lab:[address] [phone] Notes/Report: Vitamin B12 1722 200-900 pg/mL NORMAL 200-900 PG/ML INDETERMINATE 160-199 PG/ML DEFICIENT < 160 PG/ML Folate 16.8 > or = 4.0 ng/mL Reference Values: > or = 4.0 ng/mL < 4.0 ng/mL suggests folate deficiency Methotrexate, aminopterin and folinic acid (leucovorin) are chemotherapeutic agents whose molecular structures are similar to folate; therefore, the Roller Turner folate assay cannot be used for patients using these drugs. Vitamin D 25-OH Total (Not y et reviewed by provider) Interpretation: Performing Lab:[address] [phone] Notes/Report: Vitamin D 25-OH Total 57.7 >30 ng/mL Health Based Reference Values* < [...] confirmed with another method such as LC-MS/MS. Insulin (Not yet reviewed by provider) Interpretation: Performing Lab:[address] [phone] Notes/Report: Insulin 4 2-29 uU/mL This test was performed using the Benz chemiluminescent method. Values obtained from different assay methods cannot be used interchangeably. This insulin assay shows a possible cross-reactivity with antibodies generated against insulin (immunoreactive insulin and some patients treated with bovine or porcine insulin). Insulin levels may be measured lower in patients with insulin autoimmune syndrome or familial high pro-insulinemia. Complete Blood Count Auto Di ff (Not yet reviewed by provider) Interpretation: Performing Lab:[facility], [address] [place] [phone] Notes/Report: White Blood Count 5.0 4.8-10.8 X10*3/uL Red Blood Count 4.52 4.60-5.80 X10*6/uL Hemoglobin 14.0 14.0-18.0 g/dl Hematocrit 40.7 42.0-52.0 % Mean Corpuscular Volume 90.0 80.0-98.0 fL Mean Corpuscular Hemoglobin 31.0 27.0-33.0 pg Mean Corpuscular HGB Conc 34.4 31.0-36.0 g/dl Red Cell Distribution Width 12.8 11.0-16.0 % Platelet Count 223 160-400 X10*3/uL Mean Platelet Volume 10.7 9.4-12.4 fL Neutrophils Percent Auto 58.3 45-73 % Imm Gran Pct Auto 1.4 0.0-0.4 % Lymphocytes Percent Auto 25.0 20-40 % Monocytes Percent Auto 10.9 2-11 % Eosinophils Percent Auto 3.0 0-4 % Basophils Percent Auto 1.4 0-2 % NRBC Pct Auto 0.0 0.0-0.2 /100WBC Neutrophils Absolute Auto 2.9 2.0-8.3 x10*3/u L Imm Gran Abs Auto 0.07 0.00-0.03 X10*3/uL Lymphocytes Absolute Auto 1.3 1.2-4.9 X10*3/u L Monocytes Absolute Auto 0.6 0.1-1.2 X10*3/uL Eosinophils Absolute Auto 0.2 0.0-0.4 X10*3/u L Basophils Absolute Auto 0.1 0.0-0.2 X10*3/uL NRBC Abs Auto 0.000 0.0-0.012 X10*3/uL Lipid Panel (Not yet reviewe d by provider) Interpretation: Performing Lab:[facility], [address] [place] [phone] Notes/Report: Triglycerides 41 <150 mg/dL Desirable Triglyceride: less than 150 mg/dL Borderline High Triglyceride 150-199 mg/dL High Triglyceride: 200-499 mg/dL Very High Triglyceride: greater than or equal to 5OO mg/dL Cholesterol 170 <200 mg/dL Desirable Cholesterol: less than 200 mg/dL Borderline High Cholesterol: 200-239 mg/dL High Cholesterol: greater than 239 mg/dL LDL Cholesterol Calculated 95 <100 mg/dL Desirable LDL: less than 100 mg/dL Near Optimal/Above Optimal LDL: 110-129 mg/dL Borderline High LDL: 130-159 mg/dL High LDL: 160-189 mg/dL Very High LDL: greater than or equal to 190 mg/dL HDL Cholesterol 67 >40 mg/dL Desirable HDL: greater than 40 mg/dL Note: This HDL assay may give artificially low results in patients with liver disease. TSH reflex Free T4 (Not yet reviewed by provider) Interpretation: Performing Lab:[address] [phone] Notes/Report: TSH reflex Free T4 2.24 0.32-4.0 uIU/mL Hemoglobin A1c Reviewed date:09/29/2024 09:53:04 AM Interpretation: Performing Lab:[facility], [address] [place] [phone] Notes/Report: Hemoglobin A1c % 4.7 <6.0 % Hemoglobin A1C Reference Range Adults: 4.8 - 6.0 % Non diabetic: < 6.0 % Goal: < 7.0 % Additional Action Suggested: > 8.0 % Note: Hemoglobin A1c results are invalid for patients with abnormal amounts of HbF. Blood transfusions may impact the HbA1c concentration in the patient sample. Estimated Average Glucose 88 eAG = Estimated average glucose which is %A1C expressed as average glucose, using the formula of the D6H-Lkplsri Average Glucose study (ADAG), Diabetes Care, Vol.31,#8, Apr. 2007 REASON FOR REFERRAL No Information MEDICATIONS Medication [...] nk containing alcohol in the past year? Monthly or less (1 point) How many drinks did you have on a typical day when you were drinking in the past year? 1 or 2 drinks (0 point) How often did you have 6 or more drinks on one occasion in the past year? Never (0 point) Points 1 Interpretation Negative PROBLEMS Problem Type ICD Code Onset Dates Problem Status W/U Status Risk SNOMED Code Notes Problem Reflux esophagitis (K21.00) Active confirmed 971527944 Problem Gynecomastia, male (N62) Active confirmed 4518141 Problem Essential hypertension (I10) Active confirmed 52322132 Problem Acquired hypothyroidism (E03.9) Active confirmed 621718791 Problem Mild intermittent asthma without complication (J45.20) Active confirmed 921472652 Problem Prediabetes (R73.09) Active confirmed 1513538 Problem Migraine with aura and without status migrainosus, not intractable (G43.109) Active confirmed 0592047 Problem Obstructive sleep apnea (G47.33) Active confirmed Obstructive sleep apnea (07444455) Problem Elevated LDL cholesterol level (E78.00) Active confirmed 970073551 Problem SHANE (obstructive sleep apnea) (G47.33) Active confirmed 44298817 Problem BMI 40.0-44.9, adult (Z68.41) Active confirmed Body mass index 40+ - morbidly obese (920685148) Problem Closed fracture of multiple ribs of left side with delayed healing, subsequent encounter (S22.42XG) Active confirmed VITAL SIGNS Blood pressure diastolic 80 mm Hg 10/05/2023 jenny ght is down 56 pounds since 06-11-23 Height 66 in 10/05/2023 weight is down 56 pounds since 06-11-23 Blood pressure systolic 122 mm Hg 10/05/2023 jennyg ht is down 56 pounds since 06-11-23 Weight 192 lbs 10/05/2023 weight is down 56 pounds since 06-11-23 BMI 30.99 kg/m2 10/05/2023 weight is down 56 pounds since 06-11-23 Encounters Encounter Location Date Provider Diagnosis Aston Fox MD [address] [place] [address] [address] [place], [place] [id number] 10/05/2023 Aston Fox SHANE (obstructive sle ep apnea) G47.33 ; Annual physical exam Z00.00 ; Acquired hypothyroidism E03.9 ; Essential hypertension I10 ; Mild intermittent asthma without complication J45.20 ; Prediabetes R73.09 ; Colon cancer screening Z12.11 and Depression screening Z13.31 Aston Fox MD [address] [place], [place] [id number] 09/29/2024 Aston Fox Blood tests for routine general physical examination Z00.00 ; Essential hypertension I10 ; Prediabetes R73.09 ; Acquired hypothyroidism E03.9 and Elevated LDL cholesterol level E78.00 ASSESSMENTS Encounter Date Diagnosis Assessment Notes Treatment Notes Treatment Clinical Notes 10/05/2023 Annual physical exam (ICD-10 - Z00.00) labs reviewed and discussed with patient 10/05/2023 SHANE (obstructive sleep apnea) (ICD-10 - G47.33) has resolved with weight loss 09/29/2024 Blood tests for routine general physical examination (ICD-10 - Z00.00) 10/05/2023 Acquired hypothyroidism (ICD-10 - E03.9) tsh good, will continue current regiment 09/29/2024 Essential hypertension (ICD-10 - I10) 10/05/2023 Essential hypertension (ICD-10 - I10) taking one half amlodipine, will continue current regiment 09/29/2024 Prediabetes (ICD-10 - R73.09) 10/05/2023 Mild intermittent asthma without complication (ICD-10 - J45.20) no longer bothered 09/29/2024 Acquired hypothyroidism (ICD-10 - E03.9) 10/05/2023 Prediabetes (ICD-10 - R73.09) great a1c, no need for medication at this time 09/29/2024 Elevated LDL cholesterol level (ICD-10 - E78.00) 10/05/2023 Colon cancer screening (ICD-10 - Z12.11) guaiac negative 10/05/2023 Depression screening (ICD-10 - Z13.31) negative screen PLAN OF TREATMENT Pending Test Test Name Order Date Electrocardiogram (EKG) 05/17/2017 XR CHEST 2 VIEW PA & LAT 04/07/2021 Sleep Study - Baseline 04/11/2021 Complete Blood Count Auto Diff 5 Comprehensive Met. Panel 09/29/2024 Comprehensive [place]. Panel Fast 5 IRON PROFILE 09/29/2024 Ferritin 09/29/2024 C Reactive Protein 09/29/2024 Lipid Panel 09/29/2024 PSA,Total (Free>4and<10) 09/29/2024 Vitamin B12 and Folate 09/29/2024 Vitamin D 25-OH Total 09/29/2024 TSH reflex Free T4 09/29/2024 Microalbumin, Random 09/29/2024 UA ClnCatch+Micro w/rflx Cult 09/29/2024 Insulin 09/29/2024 Next Appt Details Provider Name:Aston Hodge ier, 10/07/2024 09:30:00 AM, [address] [place] [address], [address], [place], [place], [id number], Insurance Providers Payer Name Payer Address Payer Phone Subscriber Number Group Number Insured Name Patient Relationship to Insured Coverage Start Date Coverage End Date [facility] [address] [address] [place] [address] [phone] [id number] Asaf Wynn Self - patient is the insured [facility] [address] [place] [address] [id number] Asaf Wynn Self - patient is the insured MEDICAL (GENERAL) HISTORY Medical History History ICD Code had been on flovent alone with no improv ement Colonoscopy- done 12/09/[address] Natalia rodriguez - repeat 10 years
--- OUTSIDE RECORDS SUMMARY | 2024-09-29 12:04 | XMS_ITS ---
Author Organization Aston Fox MD Address [address] [place], [place] [phone] Care Team Providers Care Backend Tester Name Role Phone Aston Fox Primary Care Provider RESULTS Component Value Reference Range Notes Complete Blood Count Auto Di ff (Not yet reviewed by provider) Interpretation: Performing Lab:[facility], [address] [place] [phone] Notes/Report: White Blood Count 5.0 4.8-10.8 X10*3/uL [...] yet reviewe d by provider) Interpretation: Performing Lab:[address] [address] Notes/Report: Triglycerides 41 <150 mg/dL Desirable Triglyceride: [...] (Not yet reviewed by provider) Interpretation: Performing Lab:[facility], [address] [place] [phone] Notes/Report: TSH reflex Free T4 2.24 0.32-4.0 uIU/mL Hemoglobin A1c Reviewed date:09/29/2024 09:53:04 AM Interpretation: Performing Lab:[facility], [address] [place] [phone] Notes/Report: Hemoglobin A1c % 4.7 <6.0 % [...] average glucose, using the formula of the E4R-Rhapfkm Average Glucose study (ADAG), Diabetes Care, Vol.31,#8, 2007 REASON FOR VISIT FASTING LABS Encounters Encounter Location Date Provider Diagnosis Aston Fox MD [address] [place] [address] Drive [address] [place], [place] [phone] 09/29/2024 Aston Fox Blood tests for routine general physical examination Z00.00 ; Essential hypertension I10 ; Prediabetes R73.09 ; Acquired hypothyroidism E03.9 and Elevated LDL cholesterol level E78.00 ASSESSMENTS Encounter Date Diagnosis Assessment Notes Treatment Notes Treatment Clinical Notes 09/29/2024 Blood tests for routine general physical examination (ICD-10 - Z00.00) 09/29/2024 Essential hypertension (ICD-10 - I10) 09/29/2024 Prediabetes (ICD-10 - R73.09) 09/29/2024 Acquired hypothyroidism (ICD-10 - E03.9) 09/29/2024 Elevated LDL cholesterol level (ICD-10 - E78.00) PLAN OF TREATMENT Pending Test Test Name Order Date Complete Blood Count Auto Diff 5 Comprehensive [place]. Panel Fast 5 Lipid Panel 09/29/2024 PSA,Total (Free>4and<10) 09/29/2024 TSH reflex Free T4 09/29/2024 Microalbumin, Random 09/29/2024 UA ClnCatch+Micro w/rflx Cult 09/29/2024 Next Appt Details Provider Name:Aston ordoñez, 10/07/2024 09:30:00 AM, [address] [place] [address], [address], [place], [place], [phone],
--- OUTSIDE RECORDS SUMMARY | 2024-09-29 12:05 | XMS_ITS | Patient Health Record ---
Author Organization [facility] Address [address] [place] [address] Care Team Providers Care Tack Puller Name Role Phone Ruddy VILLARREAL, Aston Primary [...] Abnormal findings in stool (792.1) Active confirmed 004280093 Problem Rectal bleeding (569.3) Active confirmed 72732026 PLAN OF TREATMENT Future Test Test Name Order Date COLONOSCOPY 10/28/2014 Insurance Providers Payer Name Payer Address Payer Phone Subscriber Number Group Number Insured Name Patient Relationship to Insured Coverage Start Date Coverage End Date [facility] [address] [place] [phone] [id number] ANNA STEIN Self - patient is the insured MEDICAL (GENERAL) HISTORY Medical History History ICD Code Denies AK,DM,CVA,renal disease asthma hypertension Surgical History Surgery Date(Month/Year) lower back surgery eye surgery
[2024-09-29 12:06] LABS: Appearance Urine Cloudy; Color Urine Yellow; Glucose Urine UA Negative (Negative); Leukocyte Esterase Urine Negative (Negative); Nitrite Urine Negative (Negative); PH 8.5 (5.0-9.0); Specific Gravity - Urine 1.015 (1.005-1.025); Urine Blood Negative (Negative); Urine Ketones Negative (Negative); Urine Protein Negative (Neg-Trace)
[2024-09-29 12:12] LABS: Bacteria Urine None Seen (None Seen); Hyaline Casts Urine 0-2 /LPF (0-2); RBC Urine 0-2 /HPF (0-2); Squamous Epithelial Cell Urine 0-2 /HPF (0-2); WBC Urine 0-5 /HPF (0-5)
[2024-09-29 12:30] LABS: Estimated Average Glucose 88 mg/dL; Hemoglobin A1C 104.0386 umol/L; Hemoglobin A1c % 4.7 % (<6.0); Total Hemoglobin (HGBA1C) 3682.3993 umol/L
[2024-09-29 12:37] LABS: PSA,Total (Free>4and<10) 1.55 ng/mL (0.00-4.00)
[2024-09-29 12:53] LABS: Creatinine Urine 49.53 mg/dL; Microalbum/Creatinine Ratio Ur 48.4 ug/mg cr (<30)
[2024-09-29 13:24] LABS: Alanine Aminotransferase 17 U/L (0-40); Albumin Level 4.1 g/dL (3.5-5.0); Alkaline Phosphatase 51 U/L (39-117); Anion Gap 8 (12-20); Aspartate Amino Transferase 23 U/L (5-37); Bilirubin Total 0.9 mg/dL (0.0-1.0); Blood Urea Nitrogen 14 mg/dL (9-16); Calcium 9.1 mg/dL (8.4-10.2); Carbon Dioxide 31 mmol/L (22-29); Chloride 106 mmol/L (96-108); Cholesterol 169 mg/dL (<200); Estimated Glomerular Filt Rate > 60; Glucose Fasting 87 mg/dL (60-99); HDL Cholesterol 66 mg/dL (>40); LDL Cholesterol Calculated 95 mg/dL (<100); Sodium 142 mmol/L (135-145); TSH reflex Free T4 2.28 uIU/mL (0.32-4.0); Total Protein 6.7 g/dL (6.5-8.0); Triglycerides 41 mg/dL (<150)
== END 2024-09-29 10:46 | disposition home or self-care (01) ==
LOC: HO.LNP 10:45
PROVIDERS: Visit Provider Internal Medicine
DX: Z00.00 Encounter for general adult medical examination without abnormal findings (principal); I10 Essential (primary) hypertension; R73.09 Other abnormal glucose; E03.9 Hypothyroidism, unspecified; E78.00 Pure hypercholesterolemia, unspecified
CPT/HCPCS: 80053; 80061; 81001; 82043; 82570; 83036; 84153; 84443; 85025

== ENCOUNTER 2024-10-14 09:27 | Outpatient (AMB) | payer OTHER, SELFPAY ==
--- NOTE | 2024-10-14 09:56 | MHC.OFFVISWM ---
VS Expanded 10/14/24 10:24 BP 144/72 H Blood Pressure Location Rt brachial Blood Pressure Position Sitting Pulse 73 Pulse Source Pulse Oximeter Temp 99.9 F Temperature Source Temporal Artery Scan Pulse Oximetry 98 Oxygen Delivery Method Room Air Height 5 ft 5 in Weight 179 lb BMI 29.8 Body Fat % 42.7 Body Fat Mass 44.0 Fat Free Mass 134.8 Visceral Fat Rating 12.0 Body Water % 54.5 Body Water Mass 97.4 Muscle Mass/Score 127.8 Basal Metabolic Rate/Score 1,773 Intake Visit Reasons: (OV) PO LSG 08/07/23 (skin removal) Allergies Penicillins [PENICILLINS] Allergy (Severe, Verified 10/14/24 10:21) RASH,THROAT CLOSING fexofenadine [From ENDY] Allergy (Intermediate, Verified 10/14/24 10:21) RASH Medication List - Last Reconciled 10/14/24 by COLE Galvan albuterol sulfate 90 mcg/actuation (ProAir HFA) 2 puffs inhalation Q6H PRN amlodipine 5 mg PO DAILY calcium citrate-vitamin D3 315 mg-5 mcg (200 unit) (Calcium Citrate + D) 1 tab PO BID clotrimazole 1% 1 appl topical BID fluticasone furoate-vilanterol 200-25 mcg/dose (Breo Ellipta) 1 inh inhalation DAILY levothyroxine (Synthroid) 150 mcg PO DAILY xbmzmaimosdx-ity-nkjm-FA-vit K 45 mg iron- 800 mcg-120 mcg (Bariatric Multivitamins) caps PO HPI Comments Details: This?is a?54 yo male who is s/p LSG 08/07/2023. Weight gain of 2lbs since last OV 1mo ago, pt reports he recently took a course of prednisone for asthma.? No complaints of nausea, emesis, abdominal pain or reflux, or constipation. Pt continues on K+ supplement, prescribed by his PCP. 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 He also has excess skin of his upper chest. At work, pt feels very uncomfortable when working near [employer] lines- excess moisture accumulates in the folds, particulary in his umbilicus, and smells unpleasant. He has tried Goldbond powder but this has not improved the rashes. Pt has to adjust clothing or use special clothing because skin gets in the way of dressing normally. He finds that walking becomes painful due to rashes and limits mobility. [facility] Medical History COPD (chronic obstructive pulmonary disease) Sleep apnea treated with continuous positive airway pressure (CPAP) Morbid obesity Asthma Obesity Hypothyroidism Hypertension Surgical History Hx of laparoscopic partial gastrectomy Hx of eye surgery Hx of resection of rib History of umbilical hernia repair (~2015) History of colonoscopy (~2014) Social History (Updated 10/14/24 @ 10:22 by Soledad Ojeda CMA) Household Members: Spouse and Children Housing: House Are you a primary patient centered care specialist to a significant other at home: No Do you presently have visiting nurse or other home services: No Alcohol intake: former Patient Tobacco Use Status: Never used Tobacco Physical Exam Vital Signs: Last Vital Signs Temp 99.9 F 10/14/24 10:24 Pulse 73 10/14/24 10:24 BP 144/72 H 10/14/24 10:24 Pulse Ox 98 10/14/24 10:24 Oxygen Delivery Method Room Air 10/14/24 10:24 BMI result Body Mass Index 29.8 Const General: cooperative, comfortable and no acute distress Orientation/consciousness: patient oriented x3 GI Other: soft, nontender, nondistended, incisions well healed, no hernia, no masses Grade II pannus Neuro General: patient oriented x3 Assessment & Plan Assessment & Plan (1) Overweight: Code(s): E66.3 - Overweight Category: Medical (2) S/P laparoscopic sleeve gastrectomy: Code(s): Z98.84 - Bariatric surgery status Category: Medical (3) Excess skin: Code(s): L98.7 - Excessive and redundant skin and subcutaneous tissue Category: Medical Plan Labs reviewed with pt previously, pt was put on K+ supplement by his PCP. Goal of BMI 27 or 162lbs prior to skin removal surgery. Pt feels he can achieve this. He had questions about excess skin removal of flanks so we discussed that a plastic surgeon may be his best option if he wants chest/abdomen/flanks all done at the same time. He would like to proceed with panniculectomy only for now. Pt is experiencing problems of excess skin of abdomen, resulting in frequent painful rashes, as well as limiting his mobility and activities of daily living, including affecting his abilities at his job. Conservative measures such as clothing adjustments/special clothing as well as topical treatments have not been effective in relieving his pain and discomfort thus far. Clotrimazole ointment ordered for rashes of excess skin. Pt will text me his weight if able to achieve 162lbs. I spent a total of 30 minutes reviewing/updating records, examining the patient and counseling the patient on weight management as detailed above. Medications: New clotrimazole 1% 1 appl topical BID 45 grams 3RF
--- OUTSIDE RECORDS SUMMARY | 2024-10-14 10:19 | XMS_ITS ---
Author Organization Aston Fox MD Address [address] [place], [place] [id number] Care Team Providers Care Senior Staff Consultant Name Role Phone Aston Fox Primary Care Provider ALLERGIES Allergen (clinical drug ingredient) Drug/Non Drug Allergy documented on EMR Reaction Allergy Type Onset Date Status Joceline (uncoded) rash Allergy Ac tive Penicillin (uncoded) rash Allergy Active REASON FOR VISIT cold congested coughing c/o fatigue, sore throat , productive cough, SOB, runny nose congestion x 5days Negative for Covid, Video [phone] MEDICATIONS Medication SIG (Take, Route, Frequency, Duration) Notes Start Date End Date Status Albuterol Sulfate (2.5 MG/3ML) 0.083% 3 ml as needed Inhalation every 4 hrs for 30 days 04/04/2021 Not-Taking Omeprazole 20 MG 1 capsule 30 minutes before morning meal Orally Once a day for 30 day(s) 07/21/2019 Not-Taking Fluticasone Propionate 50 MCG/ACT USE 1 SPRAY INTO EACH NOSTRIL EVERY DAY FOR 30 DAYS for 90 Active Potassium Chloride ER 10 MEQ 2 capsules with food Orally Twice a day for 90 days 09/30/2024 Active Benzonatate 200 MG 1 capsule Orally Thr ee times a day for 10 days 05/01/2023 Not-Taking amLODIPine Besylate 10 MG TAKE 1 TABLET BY MOUTH EVERY DAY FOR 90 DAYS for 90 Active Irbesartan-hydroCHLOROthia zide 150-12.5 MG TAKE 1 TABLET BY MOUTH EVERY DAY FOR 30 DAYS ORALLY ONCE A DAY 90 DAYS for 90 Active Dulera 200-5 MCG/ACT INHALE 2 PUFFS INTO THE LUNGS TWICE A DAY FOR 30 DAYS for 30 Active Ventolin HFA 108 (90 Base) MCG/ACT INHALE 1 PUFF INTO THE LUNGS EVERY 4 HOURS NEEDED FOR 30 DAYS for 30 Active Levothyroxine Sodium 150 MCG TAKE 1 TABLET BY MOUTH EVERY DAY IN THE MORNING for 90 Active Zithromax Z-Jose Luis 250 MG 2 tablet on the f irst day, then 1 tablet daily for 4 days Orally Once a day for 5 day(s) 10/07/2024 Active predniSONE 10 MG 1 tablet with food o r milk Orally 4 tabs for 3 days,3tabs for 3 days, 2 tabs for 3 days, and 1 tab for 3 days for 14 days 10/07/2024 Active Wixela Inhub 250-50 MCG/ACT 1 puff Inhalation Twice a day 04/21/2022 Active PROBLEMS Problem Type ICD Code Onset Dates Problem Status W/U Status Risk SNOMED Code Notes Problem Acute asthmatic bronchitis (J45.909) Active confirmed 463772537 VITAL SIGNS BMI 28.4 kg/m2 10/07/2024 Height 66 in 10/07/2024 Weight 176 lbs 10/07/2024 weight is 176 BP not taken a t home no temp Encounters Encounter Location Date Provider Diagnosis Aston Fox MD [address] [place] [phone] 10/07/2024 Aston Fox Acute asthmatic bronchitis J45.909 ASSESSMENTS Encounter Date Diagnosis Assessment Notes Treatment Notes Treatment Clinical Notes 10/07/2024 Acute asthmatic bronchitis (ICD-10 - J45.909) PLAN OF TREATMENT Medication Medication Name Sig Start Date Stop Date Notes Zithromax Z-Jose Luis 250 MG 2 tablet on the f irst day, then 1 tablet daily for 4 days Orally Once a day for 5 day(s) 10/07/2024 predniSONE 10 MG 1 tablet with food o r milk Orally 4 tabs for 3 days,3tabs for 3 days, 2 tabs for 3 days, and 1 tab for 3 days for 14 days 10/07/2024 Next Appt Details Provider Name:Aston ordoñez, 11/18/2024 10:30:00 AM, [address], [address], [place], [place], [phone], History and Physical Notes * HPI (History of Present Illness) Category Sub-Category Detail Notes Symptom(s) Telehealth Location of [facility] ider rendering services:: [address], [address] Location of patient:: other (please spec maximo) Patient is at work in [place] Patient identification confirmed using:: Name, Telehealth method:: Video co nference where patient is visible to the provider of care Consent:: Patient verbally c onsented to treatment, Patient verbally consented to billing insurance company, Patient informed of any privacy concerns related to method of visit Total time spend talking with patient (m inutes): 0
--- OUTSIDE RECORDS SUMMARY | 2024-10-14 10:19 | XMS_ITS | Clinical Summary ---
Author Organization [facility] it Address [address] [place] [address] Care Team Providers Care Circular Knife Cutter Machine Name Role Phone Unavailable Primary Care Provider Unavailabl e Medical History Medical History Date Comments Unspecified asthma(493.90) 02/05/2006 DX:Un specified asthma(493.90) Unspecified essential hypertension DX:Unspecified essential hypertension Amblyopia, unspecified DX:Amblyo la, unspecified; COMMENT: left eye Family History Medical History Relation Name Comments Cataracts Brother 1 Blindness Neg Hx Glaucoma Neg Hx Macular degeneration Neg Hx Strabismus Neg Hx Relation Name Status Comments Brother 1 Alive Brother 2 Alive COPD Daughter Alive Father HTN, pancreatic cancer Mother Alive hypothyroid Social History Tobacco Use Types Packs/Day Years Used Date Smoking Tobacco: Never Smokeless Tobacco: Never Alcohol Use Standard Drinks/Week Comments Yes 0 (1 standard drink = 0.6 oz pur e alcohol) Sex and Gender Information Value Date Recorded Sex Assigned at Not on file Gender Identity Not on file Sexual Orientation Not on file Obstetrics History Plan of Treatment Health Maintenance Due Date Last Done Comments Pneumococcal Vaccine: Pediatrics (0 to 5 Years) and At-Risk Patients (6 to 64 Years) (1 of 2 - PCV) 1977 Hepatitis B Vaccines (1 of 3 - 19+ 3-dose series) 1990 DTaP,Tdap,and Td Vaccines (2 - Td or Tdap) 05/05/2019 05/05/2009 Zoster Vaccines (1 of 2) 2021 Cholesterol Screening (Lipid Panel) 08/23/2022 Colorectal Cancer Screening: Colonoscopy 08/23/2022 Depression Screening 08/23/2022 HIV Screening 08/23/2022 Hepatitis C Screening 08/23/2022 Social Influencers of Health Screening 08/23/2022 Hypertension/CHF/CAD Annual BMP Blood Test 09/08/2022 COVID-19 Vaccine ( season) 2024 Influenza Vaccine (#1) 2024 2, 06/05/2011, 06/10/2010, Additional history exists HIB Vaccines Aged Out No longer eligi ble based on patient's age to complete this topic HPV Vaccines Aged Out No longer eligi ble based on patient's age to complete this topic Hepatitis A Vaccines Aged Out No long er eligible based on patient's age to complete this topic IPV Vaccines Aged Out No longer eligi ble based on patient's age to complete this topic MMR Vaccines Aged Out No longer eligi ble based on patient's age to complete this topic Meningococcal ACWY Vaccine Aged Out N o longer eligible based on patient's age to complete this topic RSV Immunization Patients Under 20 months Aged Out No longer eligible based on patient's age to complete this topic Varicella Vaccines Aged Out No longer eligible based on patient's age to complete this topic
--- OUTSIDE RECORDS SUMMARY | 2024-10-14 10:20 | XMS_ITS ---
Author Organization Aston Fox MD Address [address] [place], [place] [phone] Care Team Providers Care Mail Examiner Name Role Phone Aston Fox Primary Care Provider RESULTS Component Value Reference Range Notes Complete Blood Count Auto Di ff Reviewed date:09/29/2024 05:47:15 PM Interpretation: Performing Lab:[facility], [address] [place] [phone] Notes/Report: White Blood Count 5.0 4.8-10.8 X10*3/uL [...] NRBC Abs Auto 0.000 0.0-0.012 X10*3/uL Comprehensive [place]. Panel Fa st Reviewed date:09/30/2024 10:15:41 AM Interpretation: Performing Lab:[facility], [address] [place] [phone] Notes/Report: Sodium 142 135-145 mmol/L Potassium 3.0 3.3-5.1 mmol/L Chloride 106 96-108 mmol/L Carbon Dioxide 31 22-29 mmol/L Anion Gap 8 12-20 Blood Urea Nitrogen 14 9-16 mg/dL Creatinine 0.76 0.5-1.4 mg/dL Estimated Glomerular Filt Rate > 60 Chronic Kidney Disease: Estimated GFR < 60 mL/min/1.73m2 Severe Kidney Disease: Estimated GFR < 15 mL/min/1.73m2 Glucose Fasting 87 60-99 mg/dL Calcium 9.1 8.4-10.2 mg/dL Bilirubin Total 0.9 0.0-1.0 mg/dL Aspartate Amino Transferase 23 5-37 U/L Alanine Aminotransferase 17 0-40 U/L Total Protein 6.7 6.5-8.0 g/dL Albumin Level 4.1 3.5-5.0 g/dL Alkaline Phosphatase 51 39-117 U/L Lipid Panel Reviewed date:09/29/2024 12:16:19 PM Interpretation: Performing Lab:[facility], [address] [place] [phone] Notes/Report: Triglycerides 41 <150 mg/dL Desirable Triglyceride: [...] patients with liver disease. PSA,Total (Free>4and<10) Reviewed date:09/29/2024 01:33:23 PM Interpretation: Performing Lab:[address] [phone] Notes/Report: PSA,Total (Free>4and<10) 1.55 0.00-4.00 ng/mL A Free PSA was not [...] Immunoassay (CMIA) TSH reflex Free T4 Reviewed date:09/29/2024 12:14:50 PM Interpretation: Performing Lab:[address] [phone] Notes/Report: TSH reflex Free T4 2.24 0.32-4.0 uIU/mL Microalbumin, Random Reviewed date:09/29/2024 01:33:44 PM Interpretation: Performing Lab:[address] [phone] Notes/Report: Creatinine Urine 49.53 Microalbumin Urine 24.0 Microalbum/Creatinine Ratio Ur 48.4 <30 ug/mg cr Albumin/Creatinine Ratio Reference Ranges: Normal: < 30 ug/mg creatinine Microalbuminuria: 30 - 300 ug/mg creatinine Clinical Albuminuria: > 300 ug/mg creatinine Hemoglobin A1c Reviewed date:09/29/2024 09:53:04 AM Interpretation: Performing Lab:[facility], [address] [place] [phone] Notes/Report: Hemoglobin A1c % 4.7 <6.0 % [...] average glucose, using the formula of the W8O-Xbcjpza Average Glucose study (ADAG), Diabetes Care, Vol.31,#8, Apr. 2007 UA ClnCatch+Micro w/rflx Cul t Reviewed date:09/29/2024 01:33:37 PM Interpretation: Performing Lab:[facility], [address] [place] [phone] Notes/Report: Urine, Clean Catch Color Urine Yellow Appearance Urine Cloudy PH 8.5 5.0-9.0 Glucose Urine UA Negative Negative mg/dL Urine Blood Negative Negative Specific Barling - Urine 1.015 1.005-1.025 Urine Protein Negative Neg-Trace mg/dL Urine Ketones Negative Negative mg/dL Nitrite Urine Negative Negative Leukocyte Esterase Urine Negative Negative RBC Urine 0-2 0-2 /HPF WBC Urine 0-5 0-5 /HPF Squamous Epithelial Cell Urine 0-2 0-2 /HPF Bacteria Urine None Seen None Seen Hyaline Casts Urine 0-2 0-2 /LPF REASON FOR VISIT FASTING LABS Encounters Encounter Location Date Provider Diagnosis Aston Fox MD [address] [place] [address] Drive [address] [place], [place] [phone] 09/29/2024 Aston Fox Blood tests for routine [...] level (ICD-10 - E78.00) PLAN OF TREATMENT Next Appt Details Provider Name:Aston ordoñez, 11/18/2024 10:30:00 AM, [address] [place] [address], [address], [place], [place], [phone],
--- OUTSIDE RECORDS SUMMARY | 2024-10-14 10:20 | XMS_ITS ---
Author Organization Aston Fox MD Address [address] [place] [address] [place] [phone] Care Team Providers Care Housesmith Name Role Phone Aston Fox Primary Care Provider REASON FOR VISIT RF Potassium MEDICATIONS Medication SIG (Take, Route, Frequency, Duration) Notes Start Date End Date Status Potassium Chloride ER 10 MEQ 2 capsules with food Orally Twice a day for 90 days 09/30/2024 Active Encounters Encounter Location Date Provider Diagnosis Aston Fox MD [address] [place] [address] [place] [phone] 09/30/2024 Aston Fox PLAN OF TREATMENT Medication Medication Name Sig Start Date Stop Date Notes Potassium Chloride ER 10 MEQ 2 capsules with food Orally Twice a day for 90 days 09/30/2024 Next Appt Details Provider Name:Aston ordoñez, 11/18/2024 10:30:00 AM, [address] [place] [address], Suite [facility], [place], [place], [phone],
--- OUTSIDE RECORDS SUMMARY | 2024-10-14 10:21 | XMS_ITS | Patient Health Record ---
Author Organization [facility] Address [address] [place] [address] Care Team Providers Care Shoemaking Cutter Name Role Phone Ruddy VILLARREAL, Aston Primary [...] Abnormal findings in stool (792.1) Active confirmed [id number] Problem Rectal bleeding (569.3) Active confirmed 01033081 PLAN OF TREATMENT Future Test Test Name Order Date COLONOSCOPY 10/28/2014 Insurance Providers Payer Name Payer Address Payer Phone Subscriber Number Group Number Insured Name Patient Relationship to Insured Coverage Start Date Coverage End Date [facility] [address] [place] [phone] [id number] ANNA STEIN Self - patient is the insured MEDICAL (GENERAL) HISTORY Medical History History ICD Code Denies OK,DM,CVA,renal disease asthma hypertension Surgical History Surgery Date(Month/Year) lower back surgery eye surgery
[2024-10-14 10:24] VITALS: BP 144/72; PULSE 73; TEMP 37.7; O2SAT 98; BMI 29.8
== END 2024-10-14 11:08 | disposition home or self-care (01) ==
PROVIDERS: PCP Internal Medicine; Visit Provider Physician Assistant Surgical
DX: L98.7 Excessive and redundant skin and subcutaneous tissue (principal); E66.3 Overweight; Z68.29 Body mass index [BMI] 29.0-29.9, adult; Z98.84 Bariatric surgery status
CPT/HCPCS: 99214

== ENCOUNTER → 2024-10-14 09:27 | Outpatient (BNVA) | payer OTHER, SELFPAY | PROVIDERS: PCP Internal Medicine; Visit Provider Physician Assistant Surgical | DX: E66.3 Overweight (principal); L98.7 Excessive and redundant skin and subcutaneous tissue; Z71.3 Dietary counseling and surveillance; Z98.84 Bariatric surgery status | CPT/HCPCS: 99212 ==

== ENCOUNTER 2024-12-30 10:13 | Outpatient (REF) | payer OTHER, SELFPAY ==
[2024-12-30 11:14] LABS: Potassium 3.4 mmol/L (3.3-5.1)
--- OUTSIDE RECORDS SUMMARY | 2024-12-30 12:01 | XMS_ITS ---
Author Organization Aston Fox MD Address [address] [place] [address] [place] [phone] Care Team Providers Care Sales Advisor Name Role Phone Aston Fox Primary Care Provider Results Component Value Reference Range Notes Potassium (Not yet reviewed by provider) Interpretation: Performing Lab:[facility], [address] [place] [phone] Notes/Report: Potassium 3.4 3.3-5.1 mmol/L REASON FOR VISIT potassium Encounters Encounter Location Date Provider Diagnosis Aston Fox MD [address] [place] [phone] 12/30/2024 Aston Fox Hypokalemia E87.6 Assessments Encounter Date Diagnosis (ICD Code) Assessment Notes Treatment Notes Treatment Clinical Notes Section Notes 12/30/2024 Hypokalemia (ICD-10 - E87.6) Plan Of Treatment Pending Test Test Name Order Date Potassium 12/30/2024 Next Appt Details Provider Name:Aston ordoñez, 11/17/2025 07:45:00 AM, [address] [place] [address], [address], [phone], Provider Name:Aston ordoñez, 11/24/2025 10:30:00 AM, [address] [place] [address], [address], [phone], Progress Notes * Asaf WYNNDOB:1970 (54 yo M)Acc No.[id number]:12/30/2024 Progress Note Patient:?Asaf WYNN Provider:?Aston Fox MD :1970???Age:54 Y???Sex:Male Adan e:12/30/2024 Address:[address] [place], [place] [id number] Subjective: * Chief Complaints: * ???1. Potassium. * Medical History:? Objective: * Vitals:? Assessment: * Assessment: 1.?Hypokalemia - E87.6 (Prim hanna)??? Plan: * Treatment: * Procedure Codes:?39513 VENIP UNCT, ROUTINE* * * The named appointment provid er may or may not be the originator of this progress note, and it is not deemed complete until electronically signed by the appointment provider. Sign off status: Pending * Provider:?Aston Fox MD Date:?0 12/30/2024 Generated for Iggy pitts/Greer/Mariolasmitting on:?12/30/2024 12:00 PM EDT
--- OUTSIDE RECORDS SUMMARY | 2024-12-30 12:01 | XMS_ITS | Clinical Summary ---
Author Organization [facility] it Address [address] [place] [address] Care Team Providers Care Extract Mixer Name Role Phone Unavailable Primary Care Provider [...] Recorded Sex Assigned at Not on file Legal Sex Male 4:23 PM EST Gender Identity Not on file Sexual Orientation Not on file Obstetrics History Plan of Treatment Health Maintenance Due Date Last Done Comments Hepatitis B Vaccines (1 of 3 - 19+ 3-dose series) 1990 Pneumococcal Vaccine: 50+ Years (1 of 2 - PCV) 1990 Pneumococcal Vaccine: Pediatrics (0 to 5 Years) and At-Risk Patients (6 to 64 Years) (1 of 2 - PCV) 1990 DTaP,Tdap,and Td Vaccines (2 - Td [...] patient's age to complete this topic Meningococcal B Vaccine Aged Out No l onger eligible based on patient's age to complete this topic RSV Immunization Patients Under 20 months Aged Out No longer eligible based on patient's age to complete this topic Varicella Vaccines Aged Out No longer eligible based on patient's age to complete this topic
--- OUTSIDE RECORDS SUMMARY | 2024-12-30 12:01 | XMS_ITS ---
Author Organization Aston Fox MD Address [address] [place], [place] [id number] Care Team Providers Care Photo Stylist Name Role Phone Aston Fox Primary Care Provider [phone] Allergies Allergen (clinical drug ingredient) Drug/Non Drug Allergy documented on EMR Reaction Allergy Type Onset Date Status Joceline (uncoded) rash Allergy Ac tive Penicillin (uncoded) rash Allergy Active REASON FOR VISIT coughing chest congestion x 4 days Covid negative 2 days ago, Video [phone] Medications Medication SIG (Take, Route, Frequency, Duration) Notes Start Date End Date Status Benzonatate 200 MG 1 capsule Orally Thr ee times a day for 10 days 05/01/2023 Not-Taking Albuterol Sulfate (2.5 MG/3ML) 0.083% 3 ml as needed Inhalation every 4 hrs for 30 days 04/04/2021 Not-Taking Omeprazole 20 MG 1 capsule 30 minutes before morning meal Orally Once a day for 30 day(s) 07/21/2019 Not-Taking Ventolin HFA 108 (90 Base) MCG/ACT INHALE 1 PUFF INTO THE LUNGS EVERY 4 HOURS NEEDED Active Levothyroxine Sodium 150 MCG TAKE 1 TABLET BY MOUTH EVERY DAY IN THE MORNING Active amLODIPine Besylate 10 MG TAKE 1 TABLET BY MOUTH EVERY DAY FOR 90 DAYS Active Potassium Chloride ER 10 MEQ 2 capsules with food Orally Twice a day for 90 days 09/30/2024 Active Wixela Inhub 250-50 MCG/ACT 1 puff Inhalation Twice a day 04/21/2022 Active Irbesartan-hydroCHLOROthia zide 150-12.5 MG TAKE 1 TABLET BY MOUTH EVERY DAY FOR 30 DAYS ORALLY ONCE A DAY 90 DAYS Active Dulera 200-5 MCG/ACT INHALE 2 PUFFS INTO THE LUNGS TWICE A DAY FOR 30 DAYS Active Zithromax Z-Jose Luis 250 MG 2 tablet on the f irst day, then 1 tablet daily for 4 days Orally Once a day for 5 day(s) 12/15/2024 Active predniSONE 10 MG 1 tablet with food o r milk Orally 4 tabs for 3 days,3tabs for 3 days, 2 tabs for 3 days, and 1 tab for 3 days for 14 days 12/15/2024 Active Fluticasone Propionate 50 MCG/ACT USE 1 SPRAY INTO EACH NOSTRIL EVERY DAY FOR 30 DAYS for 90 Active Encounters Encounter Location Date Provider Diagnosis Aston Fox MD [address] [place] [address] [place] [phone] 12/15/2024 Aston Fox Mild intermittent asthma without complication J45.20 Assessments Encounter Date Diagnosis (ICD Code) Assessment Notes Treatment Notes Treatment Clinical Notes Section Notes 12/15/2024 Mild intermittent asthma without complication (ICD-10 - J45.20) patient verbalized understanding of medication and directipnns for use Plan Of Treatment Medication Medication Name Sig Start Date Stop Date Notes Zithromax Z-Jose Luis 250 MG 2 tablet on the f irst day, then 1 tablet daily for 4 days Orally Once a day for 5 day(s) 12/15/2024 predniSONE 10 MG 1 tablet with food o r milk Orally 4 tabs for 3 days,3tabs for 3 days, 2 tabs for 3 days, and 1 tab for 3 days for 14 days 12/15/2024 Treatment Notes Assessment Notes Mild intermittent asthma wit hout complication patient verbalized understanding of medication and directipnns for use Next Appt Details Provider Name:Aston ordoñez, 11/17/2025 07:45:00 AM, [address] [place] [address], Suite [facility], [place], [place], [phone], Provider Name:Aston ordoñez, 11/24/2025 10:30:00 AM, [address] [place] [address], [address], [phone], Progress Notes * Freda WYNN:1970 (54 yo M)Acc No.[id number]:12/15/2024 Patient:?Asaf WYNN Provider:?Aston Fox MD :1970???Age:54 Y???Sex:Male Adan e:12/15/2024 Address:[address] [place] [address], [id number] Subjective: * Chief Complaints: * ???coughing chest congestion x 4 days Covid negative 2 days agoVideo [phone] * HPI: ???Symptom(s):?Telehealth?Location of provider rendering services:?[address], [address],?Location of patient:?at address listed in demographics for today's visit,?Patient identification confirmed using:?Name, ,?Telehealth method:?Video conference where patient is visible to the provider of care,?Consent:?Patient verbally consented to treatment, Patient verbally consented to billing insurance company, Patient informed of any privacy concerns related to method of visit,?Total time spend talking with patient (minutes)?18.?patient is a 54 yo male video telehealth visit with complains of shortness of breath , chest and? head congestion and? wheezing. for 4 days day, tested negative for covid. * ROS:?General/Constitutional:?Denies?Change in appetite.?Denies?Chills.?Admits?Fatigue.?Denies?Fever.?Admits?Headache.?ENT:?Patient denies?decreased sense of smell, any loss of taste, sore throat.?Admits?Sinus pain.?Denies?Sore throat.?Respiratory:?Admits?Cough.?Denies?Shortness of breath at rest.?Admits?Shortness of breath with exertion.?Admits?Sputum production.?Admits?Wheezing.?Gastrointestinal:?Denies?Diarrhea.?Denies?Nausea.?Musculoskeletal:?Patient denies?muscle aches.?Peripheral Vascular:?Patient denies?red and blue toes.? * Medical History:? * Surgical History:? * Hospitalization/Major Diagno stic Procedure:? * Medications:?TakingFluticaso ne Propionate 50 MCG/ACT Suspension USE 1 SPRAY INTO EACH NOSTRIL EVERY DAY FOR 30 DAYS Potassium Chloride ER 10 MEQ Tablet Extended Release 2 capsules with food Orally Twice a day Wixela Inhub 250-50 MCG/ACT Aerosol Powder Breath Activated 1 puff Inhalation Twice a day Irbesartan-hydroCHLOROthiazide 150-12.5 MG Tablet TAKE 1 TABLET BY MOUTH EVERY DAY FOR 30 DAYS ORALLY ONCE A DAY 90 DAYS Dulera 200-5 MCG/ACT Aerosol INHALE 2 PUFFS INTO THE LUNGS TWICE A DAY FOR 30 DAYS amLODIPine Besylate 10 MG Tablet TAKE 1 TABLET BY MOUTH EVERY DAY FOR 90 DAYS Ventolin HFA 108 (90 Base) MCG/ACT Aerosol Solution INHALE 1 PUFF INTO THE LUNGS EVERY 4 HOURS NEEDED Levothyroxine Sodium 150 MCG Tablet TAKE 1 TABLET BY MOUTH EVERY DAY IN THE MORNING Taking Fluticasone Propionate 50 MCG/ACT Suspension USE 1 SPRAY INTO EACH NOSTRIL EVERY DAY FOR 30 DAYS Taking Potassium Chloride ER 10 MEQ Tablet Extended Release 2 capsules with food Orally Twice a day Taking Wixela Inhub 250-50 MCG/ACT Aerosol Powder Breath Activated 1 puff Inhalation Twice a day Taking Irbesartan-hydroCHLOROthiazide 150-12.5 MG Tablet TAKE 1 TABLET BY MOUTH EVERY DAY FOR 30 DAYS ORALLY ONCE A DAY 90 DAYS Taking Dulera 200-5 MCG/ACT Aerosol INHALE 2 PUFFS INTO THE LUNGS TWICE A DAY FOR 30 DAYS Taking amLODIPine Besylate 10 MG Tablet TAKE 1 TABLET BY MOUTH EVERY DAY FOR 90 DAYS Taking Ventolin HFA 108 (90 Base) MCG/ACT Aerosol Solution INHALE 1 PUFF INTO THE LUNGS EVERY 4 HOURS NEEDED Taking Levothyroxine Sodium 150 MCG Tablet TAKE 1 TABLET BY MOUTH EVERY DAY IN THE MORNING Not-Taking/PRNBenzonatate 200 MG Capsule 1 capsule Orally Three times a day Albuterol Sulfate (2.5 MG/3ML) 0.083% Nebulization Solution 3 ml as needed Inhalation every 4 hrs Omeprazole 20 MG Capsule Delayed Release 1 capsule 30 minutes before morning meal Orally Once a day Medication List reviewed and reconciled with the patientNot-Taking/PRN Benzonatate 200 MG Capsule 1 capsule Orally Three times a day Not-Taking/PRN Albuterol Sulfate (2.5 MG/3ML) 0.083% Nebulization Solution 3 ml as needed Inhalation every 4 hrs Not-Taking/PRN Omeprazole 20 MG Capsule Delayed Release 1 capsule 30 minutes before morning meal Orally Once a day Medication List reviewed and reconciled with the patient * Allergies:?Penicillin: rashA llegra: rash Objective: * Vitals:? * Examination: ???General Examination: ?GENERAL APPEARANCE:?alert, well hydrated, in no distress.?HEAD:?normocephalic.? Assessment: * Assessment: 1.?Mild intermittent asthma without complication - J45.20 (Primary)??? Plan: * Treatment: * Procedure Codes:? * * Sign off status: Completed true * Provider:?Aston Fox MD Date:?0 12/15/2024 Generated for Iggy pitts/Greer/eTransmitting on:?12/30/2024 12:01 PM EDT History and Physical Notes * HPI (History of Present Illness) Category Sub-Category Detail Notes Category Not es Symptom(s) Telehealth Location of [facility] rendering [facility]:: [address], [address] patient is a 54 yo male video telehealth visit with complains of shortness of breath , chest and head congestion and wheezing. for 4 days day, tested negative for covid Location of patient:: at address listed in demographics for today's visit Patient identification confirmed using:: Name, Telehealth method:: Video co nference where patient is visible to the provider of care Consent:: Patient verbally c onsented to treatment, Patient verbally consented to billing insurance company, Patient informed of any privacy concerns related to method of visit Total time spend talking with patient (m inutes): 18 Examination Category Sub-Category Detail Notes Category Not es General Examination GENERAL APPEARANCE: alert, w ell hydrated, in no distress HEAD: normocephalic
--- OUTSIDE RECORDS SUMMARY | 2024-12-30 12:01 | XMS_ITS | Patient Health Record ---
Author Organization [facility] Address [address] [place] [address] Care Team Providers Care Radio Tester Name Role Phone Ruddy VILLARREAL, Aston Primary Care Provider Alhaji Evangelista Jr Allergies Allergen (clinical drug ingredient) Drug/Non Drug Allergy documented on EMR Reaction Allergy Type Onset Date Status Penicillin Unknown Drug Allergy Active Joceline Unknown Drug Allergy Active Reason For Referral No Information Medications Medication SIG (Take, Route, Frequency, Duration) Notes Start Date End Date Status hydroCHLOROthiazide 25 MG 1 tablet Orally Once a day Active amLODIPine Besylate 10 MG 1 tablet Orally Once a day Active Flovent HFA Active Suprep Bowel Prep 1 as directed Orally 1 for 1 dose 10/28/2014 Active Problems Problem Type SNOMED Code ICD Code Onset Dates Problem Status W/U Status Risk Notes Problem 53572058 Rectal bleeding (569.3) Active confirmed Problem 272290948 Abnormal findings in stool (792.1) Active confirmed Plan Of Treatment Future Test Test Name Order Date COLONOSCOPY 10/28/2014 Insurance Providers Payer Name Payer Address Payer Phone Subscriber Number Group Number Insured Name Patient Relationship to Insured Coverage Start Date Coverage End Date [facility] [address] [place] [phone] [id number] ANNA STEIN Self - patient is the insured Medical (General) History Medical History History ICD Code Denies SD,DM,CVA,renal disease asthma hypertension Surgical History Surgery Date(Month/Year) lower back surgery eye surgery
--- OUTSIDE RECORDS SUMMARY | 2024-12-30 12:02 | XMS_ITS ---
Author Organization Aston Fox MD Address [address] [place] [phone] Care Team Providers Care Heating Unit Installer Name Role Phone Aston Fox Primary Care Provider REASON FOR VISIT Sick again Encounters Encounter Location Date Provider Diagnosis Aston Fox MD [address] [facility] [address] [place], [place] [phone] 12/14/2024 Aston Fox Plan Of Treatment Next Appt Details Provider Name:Aston Hodge ier, 11/17/2025 07:45:00 AM, [address] [place] [address], Suite [facility], [place], [place], [phone], Provider Name:Aston Hodge ier, 11/24/2025 10:30:00 AM, [address] [place] [address], Suite [facility], [place], [place], [phone], Progress Notes * Asaf WYNNDOB:1970 (54 yo M)Acc No.[id number]:12/14/2024 Patient:?Asaf WYNN :1970???Age:54 Y???Sex:Male Address:[facility] [place], [address] * true * Date:? Generated for Printi ng/Fanorbertog/eTransmitting on:?12/30/2024 12:01 PM EDT
== END 2024-12-30 10:14 | disposition home or self-care (01) ==
LOC: HO.LNP 10:13
PROVIDERS: Visit Provider Internal Medicine
DX: E87.6 Hypokalemia (principal)
CPT/HCPCS: 84132

== ENCOUNTER 2025-01-29 09:55 | Outpatient (REF) | payer OTHER, SELFPAY ==
[2025-01-29 10:11] LABS: Potassium 3.7 mmol/L (3.3-5.1)
--- OUTSIDE RECORDS SUMMARY | 2025-01-29 10:52 | XMS_ITS | Clinical Summary ---
Author Organization [facility] it Address [address] [place] [address] Care Team Providers Care Legal Stenographer Name Role Phone Unavailable Primary Care Provider [...] COVID-19 Vaccine ( season) 2024 Influenza Vaccine (Season Ended) 2025 06/21/2012, 06/05/2011, 06/10/2010, Additional history exists HIB Vaccines [...]
== END 2025-01-29 09:56 | disposition home or self-care (01) ==
LOC: HO.LNP 09:55
PROVIDERS: Visit Provider Internal Medicine
DX: E87.6 Hypokalemia (principal)
CPT/HCPCS: 84132